=== PATIENT | female | born 1935 | race Hispanic/Latino ===

== ENCOUNTER 2016-11-14 10:03 | Emergency (ER) | payer MEDICARE, OTHER ==
[2016-11-14 11:23] LABS: Basophils % (Auto) 0.8 % (0.0-1.8); Eosinophils % (Auto) 0.6 % (0.0-4.3); Hematocrit 43.8 % (30.3-42.9); Hemoglobin 14.7 gm/dl (10.1-14.3); Mean Corpuscular HGB Conc 34 % (30-34); Mean Corpuscular Hemoglobin 34 pg (28-32); Mean Corpuscular Volume 101 fl (79-97); Platelet Count 257 K/mm3 (140-440); Red Blood Count 4.34 M/mm3 (3.65-5.03); Red Cell Distribution Width 14.1 % (13.2-15.2); White Blood Count 7.3 K/mm3 (4.5-11.0)
[2016-11-14] MEDS ORDERED: ATIVAN IV ONE ×2 (11:32→12:02)
[2016-11-14 11:36] LABS: Anion Gap 20 mmol/L; BUN/Creatinine Ratio 15.71; Blood Urea Nitrogen 11 mg/dL (7-17); Calcium 9.2 mg/dL (8.4-10.2); Carbon Dioxide 23 mmol/L (22-30); Chloride 93.1 mmol/L (98-107); Glucose 117 mg/dL (65-100); Sodium 132 mmol/L (137-145)
[2016-11-14] MEDS ORDERED: NACL 0.9% 1000 ML 1,000 ML IV ONE (12:02)
[2016-11-14 12:14] LABS: ISTAT Base Excess 0; ISTAT HCO3 21.2; ISTAT PCO2 21.4 (35-45); ISTAT PH 7.604 (7.35-7.45); ISTAT PO2 121 (80-105); ISTAT SO2 99; ISTAT TCO2 22
[2016-11-14 12:35] LABS: Creatine Kinase MB 1.9 ng/mL (0.0-4.0)
[2016-11-14 12:37] LABS: Alanine Aminotransferase 8 units/L (7-56); Albumin 3.8 g/dL (3.9-5); Albumin/Globulin Ratio 1.6 %; Alkaline Phosphatase 97 units/L (35-129); Bilirubin,Total 0.3 mg/dL (0.1-1.2); Creatine Kinase 17 units/L (30-135); Magnesium 1.7 mg/dL (1.7-2.3); Total Protein 6.2 g/dL (6.3-8.2)
[2016-11-14 12:39] LABS: Bilirubin,Direct < 0.2 mg/dL (0-0.2)
[2016-11-14 12:40] LABS: INR 0.98 (0.87-1.13); Partial Thromboplastin Time 27.5 Sec. (24.2-36.6)
--- NOTE | 2016-11-14 13:24 | Emergency Department Report ---
ED General Adult HPI - General Chief complaint: Dyspnea/Respdistress Stated complaint: PAINFUL AND BURNING HANDS AND FEET Time Seen by Provider: 11/14/16 11:06 Source: patient, family, EMS Mode of arrival: Stretcher Limitations: No Limitations - History of Present Illness Initial comments: Patient arrives in a state of high anxiety. The family states that she was just weaned off her gabapentin. She's been previously dependent on opiates and now on naltrexone. 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 She is on multiple psychiatric medications. She states her entire right side hurts, "but not my chest". She is hyperventilating. However she does not complain of shortness of breath. A blood gas was obtained which showed evidence of severe respiratory alkalosis. She was given Ativan. She began to improve. Family states that this right-sided body pain has been going on for 3 weeks since the discontinuance of gabapentin. She has not been coughing. She was also recently discontinued from Topamax and HCTZ was discontinued. According to the triage note, she was recently diagnosed with a bladder infection. - Related Data Home Medications Medication Instructions Recorded Confirmed Last Taken Acetaminophen [Tylenol] 1,000 mg PO Q8H PRN 10/14/15 11/14/16 Unknown Atenolol [Tenormin] 50 mg PO DAILY 10/14/15 11/14/16 11/13/16 Duloxetine HCl [Cymbalta] 60 mg PO DAILY 10/14/15 11/14/16 11/14/16 Losartan [Cozaar] 100 mg PO QDAY 10/14/15 11/14/16 11/14/16 Phenytoin [Dilantin] 100 mg PO Q8HR 10/14/15 11/14/16 11/14/16 Rosuvastatin (Nf) [Crestor] 5 mg PO QHS 10/14/15 11/14/16 11/13/16 risperiDONE [RisperDAL] 0.25 mg PO BID 10/14/15 11/14/16 11/14/16 Naltrexone (Nf) [Revia (Nf)] 3 mg PO DAILY 11/14/16 11/14/16 11/14/16 Quetiapine Fumarate [SEROquel] 50 mg PO BID 11/14/16 11/14/16 11/14/16 Triamter/Hctz 37.5-25 mg 1 tab PO QDAY 11/14/16 11/14/16 11/14/16 [Maxzide-25] busPIRone [Buspar] 10 mg PO BID 11/14/16 11/14/16 11/14/16 Previous Rx's Medication Instructions Recorded Last Taken Type LORazepam [Ativan] 0.5 mg PO Q12H PRN #7 tablet 11/14/16 Unknown Rx Allergies Allergy/AdvReac Type Severity Reaction Status Date / Time No Known Allergies Allergy Unverified 06/06/15 09:02 ED Review of Systems ROS: Stated complaint: PAINFUL AND BURNING HANDS AND FEET Other details as noted in HPI ED Past Medical Hx - Past Medical History Previous Medical History?: Yes Hx Hypertension: Yes Hx CVA: Yes Hx GERD: Yes Hx Liver Disease: No Hx Kidney Stones: Yes Hx Psychiatric Treatment: Yes (Major Depression) Additional medical history: Elevated Cholesterol, anxiety disorder, trigeminal neuralgia - Surgical History Past Surgical History?: Yes Hx Cholecystectomy: Yes Additional Surgical History: Hysterectomy - Social History Smoking Status: Never Smoker Substance Use Type: None - Medications Home Medications: Home Medications Medication Instructions Recorded Confirmed Last Taken Type Acetaminophen [Tylenol] 1,000 mg PO Q8H PRN 10/14/15 11/14/16 Unknown History Atenolol [Tenormin] 50 mg PO DAILY 10/14/15 11/14/16 11/13/16 History Duloxetine HCl [Cymbalta] 60 mg PO DAILY 10/14/15 11/14/16 11/14/16 History Losartan [Cozaar] 100 mg PO QDAY 10/14/15 11/14/16 11/14/16 History Phenytoin [Dilantin] 100 mg PO Q8HR 10/14/15 11/14/16 11/14/16 History Rosuvastatin (Nf) [Crestor] 5 mg PO QHS 10/14/15 11/14/16 11/13/16 History risperiDONE [RisperDAL] 0.25 mg PO BID 10/14/15 11/14/16 11/14/16 History LORazepam [Ativan] 0.5 mg PO Q12H PRN #7 tablet 11/14/16 Unknown Rx Naltrexone (Nf) [Revia (Nf)] 3 mg PO DAILY 11/14/16 11/14/1611/14/17 History Quetiapine Fumarate [SEROquel] 50 mg PO BID 11/14/16 11/14/16 11/14/16 History Triamter/Hctz 37.5-25 mg 1 tab PO QDAY 11/14/16 11/14/16 11/14/16 History [Maxzide-25] busPIRone [Buspar] 10 mg PO BID 11/14/16 11/14/16 11/14/16 History ED Physical Exam - General Limitations: No Limitations ED Course Vital Signs 11/14/16 11/14/16 10:30 10:36 Temperature 97.7 F Pulse Rate 62 Respiratory 26 H 22 Rate Blood Pressure 112/78 O2 Sat by Pulse 96 98 Oximetry - Reevaluation(s) Reevaluation #1: Patient states ready for discharge SAO2 96-97 off oxygen. Has oxygen for PRN use at home. 11/14/16 14:45 ED Medical Decision Making - Lab Data Result diagrams: 11/14/16 11:04 11/14/16 11:04 - EKG Data -: EKG Interpreted by Me EKG shows normal: sinus rhythm - EKG Data When compared to previous EKG there are: no significant change Interpretation: other (chronic inferolateral repolarization abnormality) - Radiology Data interpreted by me: Total hernia without change. No acute cardiopulmonary process. Critical care attestation.: If time is entered above; I have spent that time in minutes in the direct care of this critically ill patient, excluding procedure time. ED Disposition Clinical Impression: Acute anxiety, Hiatal hernia Disposition: DISCHARGED TO HOME OR SELFCARE Is pt being admited?: No Does the pt Need Aspirin: No Condition: Stable Instructions: Generalized Anxiety Disorder (ED), Anxiety (ED) Additional Instructions: Return any acute change or problem. I've written use some assistance for when necessary use only. Prescriptions: LORazepam [Ativan] 0.5 mg PO Q12H PRN #7 tablet PRN Reason: Anxiety Referrals: PRIMARY CARE, [Primary Care Provider] - 3-5 Days Time of Disposition: 14:57
[2016-11-14 18:55] VITALS: BP 100/41
--- NOTE | 2016-11-15 09:59 | XRay Report ---
Single view chest: Compared to 06/06/15. History: Hypertension. Findings: Cardiomegaly. Evidence of COPD with scarring in the left perihilar region. Elevated left diaphragm. Large hiatal hernia. No acute consolidation. Impression: Findings as detailed above. No acute consolidation.
== END 2016-11-14 16:30 | disposition home or self-care (01) ==
LOC: ED 10:03
DX: K44.9 Diaphragmatic hernia without obstruction or gangrene (principal); F41.9 Anxiety disorder, unspecified; I10 Essential (primary) hypertension; K21.9 Gastro-esophageal reflux disease without esophagitis; Z86.73 Personal history of transient ischemic attack (TIA), and cerebral infarction without residual deficits; Z90.710 Acquired absence of both cervix and uterus
CPT/HCPCS: 36415; 71010; 80048; 80074; 80185; 82550; 82553; 82803; 83735; 83880; 84484; 85025; 85379; 85610; 85730; 93005; 93010; 96361; 96374; 99284; J2060; J7030

== ENCOUNTER 2017-05-19 08:59 | Inpatient (IN) | payer MEDICARE, OTHER ==
[2017-05-19 09:55] LABS: Basophils % (Auto) 0.9 % (0.0-1.8); Eosinophils % (Auto) 3.1 % (0.0-4.3); Hemoglobin 12.8 gm/dl (10.1-14.3); Mean Corpuscular HGB Conc 34 % (30-34); Mean Corpuscular Hemoglobin 35 pg (28-32); Mean Corpuscular Volume 102 fl (79-97); Platelet Count 231 K/mm3 (140-440); Red Blood Count 3.72 M/mm3 (3.65-5.03); Red Cell Distribution Width 12.9 % (13.2-15.2); White Blood Count 5.5 K/mm3 (4.5-11.0)
[2017-05-19 10:06] LABS: Bacteria,Urine 1+ /HPF (Negative); Bilirubin,Urine NEG (Negative); Blood,Urine MOD (Negative); Ketones,Urine NEG (Negative); Leukocyte Esterase,Urine TR (Negative); Nitrite,Urine NEG (Negative); Protein,Urine <15 mg/dL mg/dL (Negative); Urobilinogen,Urine < 2.0 mg/dL (<2.0)
[2017-05-19 10:15] LABS: Alanine Aminotransferase 6 units/L (7-56); Albumin 3.2 g/dL (3.9-5); Albumin/Globulin Ratio 1.2 %; Alkaline Phosphatase 108 units/L (35-129); Anion Gap 20 mmol/L; Blood Urea Nitrogen 11 mg/dL (7-17); Calcium 8.4 mg/dL (8.4-10.2); Carbon Dioxide 21 mmol/L (22-30); Glucose 99 mg/dL (65-100); Lipase 14 units/L (13-60); Potassium 3.9 mmol/L (3.6-5.0); Sodium 130 mmol/L (137-145); Total Protein 5.8 g/dL (6.3-8.2)
[2017-05-19] MEDS ORDERED: MORPHINE IV ONE (10:43)
[2017-05-19] MEDS ORDERED: PEPCID IV ONE (10:44)
--- NOTE | 2017-05-19 10:58 | Emergency Department Report ---
HPI - General Chief Complaint: Abdominal Pain Time Seen by Provider: 05/19/17 10:21 - HPI HPI: 81-year-old female presents to the emergency department from home, with family at bedside, with complaint of abdominal pain that started about 6: 00 this morning. On top of that, the patient had a bowel movement last night as well as another this morning had bright red bloody stool. She is not on any blood thinners. She has a history of previous hiatal hernia that has now advanced to a diaphragmatic hernia. Primary care doctor is a Dr. Burgos and her bowling ball grader is a Dr. Shaw [facility]. She is allegedly being worked up to see if she can get surgery done to repair this diaphragmatic hernia. She did not take anything for her symptoms prior to presentation. No recent travel or sick contacts at home. She denies any fever, nausea, vomiting , dysuria, vaginal bleeding or discharge. ED Past Medical Hx - Past Medical History Hx Hypertension: Yes Hx CVA: Yes Hx GERD: Yes Hx Liver Disease: No Hx Kidney Stones: Yes Hx Psychiatric Treatment: Yes (Major Depression) Additional medical history: Elevated Cholesterol, anxiety disorder, trigeminal neuralgia - Surgical History Hx Cholecystectomy: Yes Additional Surgical History: Hysterectomy - Social History Smoking Status: Unknown if ever smoked - Medications Home Medications: Home Medications Medication Instructions Recorded Confirmed Last Taken Type Losartan [Cozaar] 100 mg PO QDAY 10/14/15 05/19/17 05/18/17 History Phenytoin [Dilantin] 100 mg PO Q8HR 10/14/15 05/19/17 05/18/17 History Rosuvastatin (Nf) [Crestor] 5 mg PO QHS 10/14/15 05/19/17 05/18/17 History Triamter/Hctz 37.5-25 mg 1 tab PO QDAY 11/14/16 05/19/17 05/18/17 History [Maxzide-25] Amitriptyline [Elavil] 100 mg PO HS 05/19/17 05/19/17 05/18/17 History Atenolol [Tenormin] 50 mg PO DAILY 05/19/17 05/19/17 05/18/17 History Dicyclomine [Bentyl] 20 mg PO QID PRN 05/19/17 05/19/17 05/18/17 History Donepezil [Aricept] 10 mg PO QDAY 05/19/17 05/19/17 05/18/17 History FLUoxetine HCL [PROzac] 40 mg PO QDAY 05/19/17 05/19/17 05/18/17 History HYDROcodone/APAP 7.5-325 [[place] 1 each PO Q8HR PRN 05/19/17 05/19/17 05/18/17 History 7.5/325] LORazepam [Ativan] 0.5 mg PO TID 05/19/17 05/19/17 05/18/17 History Latanoprost 0.005% [Xalatan 0.005%] 1 drop OU HS 05/19/17 05/19/17 05/18/17 History Quetiapine Fumarate [SEROquel XR] 200 mg PO QDAY 05/19/17 05/19/17 Unknown History Sucralfate [Carafate] 1 gm PO QID 05/19/17 05/19/17 05/18/17 History ED Review of Systems ROS: Stated complaint: ABD PAIN/BLOOD IN STOOL Other details as noted in HPI Comment: All other systems reviewed and negative Constitutional: denies: chills, fever Eyes: denies: eye pain, eye discharge, vision change ENT: denies: ear pain, throat pain Respiratory: denies: cough, shortness of breath, wheezing Cardiovascular: denies: chest pain, palpitations Gastrointestinal: abdominal pain, other (rectal bleeding). denies: nausea, vomiting Genitourinary: denies: urgency, dysuria, discharge Musculoskeletal: denies: back pain, joint swelling, arthralgia Skin: denies: rash, lesions Neurological: denies: headache, weakness, paresthesias Physical Exam - Physical Exam Vital Signs: Vital Signs 05/19/17 05/19/17 05/19/17 09:06 09:22 09:23 Temperature 97.8 F Pulse Rate 66 Respiratory 14 16 16 Rate Blood Pressure 140/78 Blood Pressure 153/71 [Left] O2 Sat by Pulse 93 97 97 Oximetry ED Course Vital Signs 05/19/17 05/19/17 05/19/17 09:06 09:22 09:23 Temperature 97.8 F Pulse Rate 66 Respiratory 14 16 16 Rate Blood Pressure 140/78 Blood Pressure 153/71 [Left] O2 Sat by Pulse 93 97 97 Oximetry ED Medical Decision Making - Lab Data Result diagrams: 05/19/17 09:44 05/19/17 09:44 - Radiology Data Radiology results: report reviewed, image reviewed interpreted by me: Abdominal x-ray shows some nonspecific nonobstructive bowel gas. Chest x-ray shows some pulmonary vascular congestion with bilateral basilar pleural effusions. No obvious pneumonia. CT ABDOMEN AND PELVIS WITH CONTRAST INDICATION: Abdominal pain. COMPARISON: 10/04/2015. FINDINGS: Abdomen and pelvis CT performed following intravenous administration of 100 cc of Omnipaque 300. LUNG BASES: New bilateral pleural effusions with AP thickness of approximately 5.3 cm on the right and 2 cm on the left, axial image 2, series 22. Mild underlying atelectasis/consolidation as well, left more than right. Mild atherosclerotic calcifications. Mild cardiomegaly. Hiatal hernia with part intrathoracic stomach again noted with some surrounding herniated fat, overall estimated at 16.5 cm transverse and 3 cm AP, axial image 9, series 2. ABDOMEN: Stable cholecystectomy clips with expected slight intrahepatic/central biliary prominence. CBD caliber at the andrew hepatis approximately 1 cm, extending upto the ampulla. Otherwise unremarkable liver, spleen, adrenals, nonaneurysmal abdominal aorta with few atherosclerotic calcifications, IVC and nonhydronephrotic kidneys. Stable 8 mm right interpolar cortical hypoechoic probable cyst. Stable somewhat small/atrophic pancreas with approximately 3 mm pancreatic duct caliber in the neck/proximal body. Nonopacified GI tract evaluation limited, though grossly nonobstructive. Numerous descending colon diverticuli. PELVIS: Sigmoid diverticulosis without acute complication. Grossly unremarkable rectum and the urinary bladder. Uterus again surgically absent. Few small pelvic phleboliths. No free fluid or significant adenopathy. Bilateral inguinal canal region fatty prominence, right more than left, axial image 351. Demineralized bones with mild dextroscoliosis apex about L1. Lower lumbar facet arthropathy. Mild multilevel spinal degenerative spurring as well. CONCLUSION: 1. New bilateral pleural effusions and underlying atelectasis, as described. 2. No acute CT abnormality in the abdomen or pelvis with various other findings, including large hiatal hernia/herniated partly intrathoracic stomach, cholecystectomy, diverticulosis and hysterectomy, amongst others, as detailed above. - Medical Decision Making 81-year-old female presents to the emergency department with a complaint of abdominal pain that sometimes feels like it goes up into her chest with a history of hiatal hernia and/or diaphragmatic hernia. Labs are mostly unremarkable other than some hyponatremia. Eventually a BNP was done when the patient admitted to shortness of breath and chest x-ray appeared consistent with some pleural effusions and the BNP came back at greater than 2500. CT of the abdomen and pelvis does show a hiatal hernia but otherwise does not show any acute process that might be the the source of her discomfort. She also complained of some rectal bleeding but has a stable hemoglobin level. She was given Pepcid for the GI bleed, she was given Lasix for a CHF. She will be admitted to the hospital for further evaluation and treatment and has been accepted for admission by the hospitalist, Dr. Hammer. - Differential Diagnosis CHF, diverticulosis, hiatal hernia, malignancy Critical Care Time: No Critical care attestation.: If time is entered above; I have spent that time in minutes in the direct care of this critically ill patient, excluding procedure time. ED Disposition Clinical Impression: Shortness of breath, Rectal bleeding, Hyponatremia Hypertension Qualifiers: Hypertension type: essential hypertension Qualified Code(s): I10 - Essential ( primary) hypertension Abdominal pain Qualifiers: Abdominal location: generalized Qualified Code(s): R10.84 - Generalized abdominal pain CHF (congestive heart failure) Qualifiers: Congestive heart failure type: unspecified congestive heart failure type Congestive heart failure chronicity: acute Qualified Code(s): I50.9 - Heart failure, unspecified Disposition: 09 OP ADMIT IP TO THIS HOSP Is pt being admited?: Yes Condition: Fair Time of Disposition: 18:39
[2017-05-19] MEDS: NACL 0.9% 500 ML 500 ML IV SCH ×2 (10:59→20:17)
[2017-05-19] MEDS ORDERED: NACL ONE ×2 (11:13→11:36)
--- NOTE | 2017-05-19 11:52 | XRay Report ---
ABDOMINAL SERIES: History: Abdominal pain. Erect chest film demonstrates mild cardiomegaly and small to medium left pleural effusion. There is no evidence of free air beneath the diaphragms. The gas pattern within the abdomen is unremarkable. There is no evidence of bowel dilatation, significant air-fluid levels, or masses. Organ shadows are unremarkable. Cholecystectomy changes are noted. IMPRESSION: Unremarkable abdomen. Mild CHF.
--- NOTE | 2017-05-19 13:11 | Cat Scan Report ---
CT ABDOMEN AND PELVIS WITH CONTRAST INDICATION: Abdominal pain. COMPARISON: 10/04/2015. FINDINGS: Abdomen and pelvis CT performed following intravenous administration of 100 cc of Omnipaque 300. LUNG BASES: New bilateral pleural effusions with AP thickness of approximately 5.3 cm on the right and 2 cm on the left, axial image 2, series 22. Mild underlying atelectasis/consolidation as well, left more than right. Mild atherosclerotic calcifications. Mild cardiomegaly. Hiatal hernia with part intrathoracic stomach again noted with some surrounding herniated fat, overall estimated at 16.5 cm transverse and 3 cm AP, axial image 9, series 2. ABDOMEN: Stable cholecystectomy clips with expected slight intrahepatic/central biliary prominence. CBD caliber at the andrew hepatis approximately 1 cm, extending upto the ampulla. Otherwise unremarkable liver, spleen, adrenals, nonaneurysmal abdominal aorta with few atherosclerotic calcifications, IVC and nonhydronephrotic kidneys. Stable 8 mm right interpolar cortical hypoechoic probable cyst. Stable somewhat small/atrophic pancreas with approximately 3 mm pancreatic duct caliber in the neck/proximal body. Nonopacified GI tract evaluation limited, though grossly nonobstructive. Numerous descending colon diverticuli. PELVIS: Sigmoid diverticulosis without acute complication. Grossly unremarkable rectum and the urinary bladder. Uterus again surgically absent. Few small pelvic phleboliths. No free fluid or significant adenopathy. Bilateral inguinal canal region fatty prominence, right more than left, axial image 351. Demineralized bones with mild dextroscoliosis apex about L1. Lower lumbar facet arthropathy. Mild multilevel spinal degenerative spurring as well. CONCLUSION: 1. New bilateral pleural effusions and underlying atelectasis, as described. 2. No acute CT abnormality in the abdomen or pelvis with various other findings, including large hiatal hernia/herniated partly intrathoracic stomach, cholecystectomy, diverticulosis and hysterectomy, amongst others, as detailed above. Thank you for the opportunity to participate in this patient's care.
[2017-05-19] MEDS ORDERED: LASIX IV ONE (13:57)
[2017-05-19] MEDS ORDERED: DILAUDID IV PRN (18:18)
[2017-05-19] MEDS ORDERED: DILAUDID ONE (18:22)
[2017-05-19] MEDS ORDERED: ZOFRAN IV PRN ×2 (19:58→20:04)
--- NOTE | 2017-05-19 20:02 | History and Physical Report ---
History of Present Illness Date of examination: 05/19/17 Date of admission: 05/19/17 17:40 Chief complaint: BRBPR since last night -2 episodes History of present illness: HPI 81-year-old female presents to the emergency department from home, with family at bedside, with complaint of abdominal pain that started about 6: 00 this morning. On top of that, the patient had a bowel movement last night as well as another this morning had bright red bloody stool. She is not on any blood thinners. She has a history of previous hiatal hernia that has now advanced to a diaphragmatic hernia. Primary care doctor is a Dr. Burgos and her copy operator is a Dr. Shaw [facility]. She is allegedly being worked up to see if she can get surgery done to repair this diaphragmatic hernia. She did not take anything for her symptoms prior to presentation. No recent travel or sick contacts at home. She denies any fever, nausea, vomiting , dysuria, vaginal bleeding or discharge. Past Medical History Hx Hypertension: Yes Hx CVA: Yes Hx GERD: Yes Hx Kidney Stones: Yes Hx Psychiatric Treatment: Yes (Major Depression) Additional medical history: Elevated Cholesterol, anxiety disorder, trigeminal neuralgia - Surgical History Hx Cholecystectomy: Yes Additional Surgical History: Hysterectomy - Social History Smoking Status: Doesn't smoke Fam Hx Htn - Medications Home Medications: Home Medications Medication Instructions Recorded Confirmed Last Taken Type Losartan [Cozaar] 100 mg PO QDAY 10/14/15 05/19/17 05/18/17 History Phenytoin [Dilantin] 100 mg PO Q8HR 10/14/15 05/19/17 05/18/17 History Rosuvastatin (Nf) [Crestor] 5 mg PO QHS 10/14/15 05/19/17 05/18/17 History Triamter/Hctz 37.5-25 mg 1 tab PO QDAY 11/14/16 05/19/17 05/18/17 History [Maxzide-25] Amitriptyline [Elavil] 100 mg PO HS 05/19/17 05/19/17 05/18/17 History Atenolol [Tenormin] 50 mg PO DAILY 05/19/17 05/19/17 05/18/17 History Dicyclomine [Bentyl] 20 mg PO QID PRN 05/19/17 05/19/1705/18/17 History Donepezil [Aricept] 10 mg PO QDAY 05/19/17 05/19/17 05/18/17 History FLUoxetine HCL [PROzac] 40 mg PO QDAY 05/19/17 05/19/17 05/18/17 History HYDROcodone/APAP 7.5-325 [[place] 1 each PO Q8HR PRN 05/19/17 05/19/17 05/18/17 History 7.5/325] LORazepam [Ativan] 0.5 mg PO TID 05/19/17 05/19/17 05/18/17 History Latanoprost 0.005% [Xalatan 0.005%] 1 drop OU HS 05/19/17 05/19/17 05/18/17 History Quetiapine Fumarate [SEROquel XR] 200 mg PO QDAY 05/19/17 05/19/17 Unknown History Sucralfate [Carafate] 1 gm PO QID 05/19/17 05/19/17 05/18/17 History Review of Systems: Stated complaint: ABD PAIN/BLOOD IN STOOL Other details as noted in HPI Comment: All other systems reviewed and negative Constitutional: denies: chills, fever Eyes: denies: eye pain, eye discharge, vision change ENT: denies: ear pain, throat pain Respiratory: denies: cough, shortness of breath, wheezing Cardiovascular: denies: chest pain, palpitations Gastrointestinal: abdominal pain, other (rectal bleeding). denies: nausea, vomiting Genitourinary: denies: urgency, dysuria, discharge Musculoskeletal: denies: back pain, joint swelling, arthralgia Skin: denies: rash, lesions Neurological: denies: headache, weakness, paresthesias Medications and Allergies Allergies Allergy/AdvReac Type Severity Reaction Status Date / Time No Known Allergies Allergy Unverified 06/06/15 09:02 Home Medications Medication Instructions Recorded Confirmed Last Taken Type Losartan [Cozaar] 100 mg PO QDAY 10/14/15 05/19/17 05/18/17 History Phenytoin [Dilantin] 100 mg PO Q8HR 10/14/15 05/19/17 05/18/17 History Rosuvastatin (Nf) [Crestor] 5 mg PO QHS 10/14/15 05/19/1717 History Triamter/Hctz 37.5-25 mg 1 tab PO QDAY 11/14/16 05/19/17 05/18/17 History [Maxzide-25] Amitriptyline [Elavil] 100 mg PO HS 05/19/17 05/19/17 05/18/17 History Atenolol [Tenormin] 50 mg PO DAILY 05/19/17 05/19/17 05/18/17 History Dicyclomine [Bentyl] 20 mg PO QID PRN 05/19/17 05/19/17 05/18/17 History Donepezil [Aricept] 10 mg PO QDAY 05/19/17 05/19/17 05/18/17 History FLUoxetine HCL [PROzac] 40 mg PO QDAY 05/19/17 05/19/17 05/18/17 History HYDROcodone/APAP 7.5-325 [[place] 1 each PO Q8HR PRN 05/19/17 05/19/17 05/18/17 History 7.5/325] LORazepam [Ativan] 0.5 mg PO TID 05/19/17 05/19/17 05/18/17 History Latanoprost 0.005% [Xalatan 0.005%] 1 drop OU 05/19/17 05/19/17 05/18/17 History Quetiapine Fumarate [SEROquel XR] 200 mg PO QDAY 05/19/17 05/19/17 Unknown History Sucralfate [Carafate] 1 gm PO QID 05/19/17 05/19/17 05/18/17 History Active Meds: Active Medications Hydromorphone HCl (Dilaudid) 2 mg IV Q3H PRN PRN Reason: Pain , Severe (7-10) Last Admin: 05/19/17 18:15 Dose: 2 mg Sodium Chloride (Nacl 0.9% 500 Ml) 500 mls @ 150 mls/hr IV DIRECT ALICIA Last Admin: 05/19/17 10:59 Dose: 150 mls/hr Ondansetron HCl (Zofran) 4 mg IV Q4H PRN PRN Reason: Nausea And Vomiting Exam - Constitutional Vitals: Temp Pulse Resp BP Pulse Ox 97.8 F 76 16 122/62 93 05/19/17 09:22 05/19/17 17:10 05/19/17 17:10 05/19/17 17:10 05/19/17 17:10 Results - Labs CBC & Chem 7: 05/20/17 03:40 05/20/17 03:40 Labs: Laboratory Last Values WBC 5.5 K/mm3 (4.5-11.0) 05/19/17 09:44 RBC 3.72 M/mm3 (3.65-5.03) 05/19/17 09:44 Hgb 12.8 gm/dl (10.1-14.3) 05/19/17 09:44 Hct 38.0 % (30.3-42.9) 05/19/17 09:44 MCV 102 fl (79-97) H 05/19/17 09:44 MCH 35 pg (28-32) H 05/19/17 09:44 MCHC 34 % (30-34) 05/19/17 09:44 RDW 12.9 % (13.2-15.2) L 05/19/17 09:44 Plt Count 231 K/mm3 (140-440) 05/19/17 09:44 Lymph % (Auto) 15.7 % (13.4-35.0) 05/19/17 09:44 [place] % (Auto) 15.1 % (0.0-7.3) H 05/19/17 09:44 Eos % (Auto) 3.1 % (0.0-4.3) 05/19/17 09:44 Baso % (Auto) 0.9 % (0.0-1.8) 05/19/17 09:44 Lymph # 0.9 K/mm3 (1.2-5.4) L 05/19/17 09:44 [place] # 0.8 K/mm3 (0.0-0.8) 05/19/17 09:44 Eos # 0.2 K/mm3 (0.0-0.4) 05/19/17 09:44 Baso # 0.0 K/mm3 (0.0-0.1) 05/19/17 09:44 Seg Neutrophils % 65.2 % (40.0-70.0) 05/19/17 09:44 Seg Neutrophils # 3.6 K/mm3 (1.8-7.7) 05/19/17 09:44 Sodium 130 mmol/L (137-145) L 05/19/17 09:44 Potassium 3.9 mmol/L (3.6-5.0) 05/19/17 09:44 Chloride 93.0 mmol/L (98-107) L 05/19/17 09:44 Carbon Dioxide 21 mmol/L (22-30) L 05/19/17 09:44 Anion Gap 20 mmol/L 05/19/17 09:44 BUN 11 mg/dL (7-17) 05/19/17 09:44 Creatinine 0.5 mg/dL (0.7-1.2) L 05/19/17 09:44 Estimated GFR > 60 ml/min 05/19/17 09:44 BUN/Creatinine Ratio 22.00 % 05/19/17 09:44 Glucose 99 mg/dL (65-100) 05/19/17 09:44 Calcium 8.4 mg/dL (8.4-10.2) 05/19/17 09:44 Total Bilirubin 0.30 mg/dL (0.1-1.2) 05/19/17 09:44 AST 9 units/L (5-40) 05/19/17 09:44 ALT 6 units/L (7-56) L 05/19/17 09:44 Alkaline Phosphatase 108 units/L (35-129) 05/19/17 09:44 Troponin T < 0.010 ng/mL (0.00-0.029) 05/19/17 13:20 NT-Pro-B Natriuret Pep 2937 pg/mL (0-900) H 05/19/17 13:20 Total Protein 5.8 g/dL (6.3-8.2) L 05/19/17 09:44 Albumin 3.2 g/dL (3.9-5) L 05/19/17 09:44 Albumin/Globulin Ratio 1.2 % 05/19/17 09:44 Lipase 14 units/L (13-60) 05/19/17 09:44 Urine Color Yellow (Yellow) 05/19/17 09:50 Urine Turbidity Clear (Clear) 05/19/17 09:50 Urine pH 6.0 (5.0-7.0) 05/19/17 09:50 Ur Specific [place] 1.010 (1.003-1.030) 05/19/17 09:50 Urine Protein <15 mg/dl mg/dL (Negative) 05/19/17 09:50 Urine Glucose (UA) Neg mg/dL (Negative) 05/19/17 09:50 Urine Ketones Neg mg/dL (Negative) 05/19/17 09:50 Urine Blood Mod (Negative) 05/19/17 09:50 Urine Nitrite Neg (Negative) 05/19/17 09:50 Urine Bilirubin Neg (Negative) 05/19/17 09:50 Urine Urobilinogen < 2.0 mg/dL (<2.0) 05/19/17 09:50 Ur Leukocyte Esterase Tr (Negative) 05/19/17 09:50 Urine WBC (Auto) 4.0 /HPF (0.0-6.0) 05/19/17 09:50 Urine RBC (Auto) 4.0 /HPF (0.0-6.0) 05/19/17 09:50 U Epithel Cells (Auto) < 1.0 /HPF (0-13.0) 05/19/17 09:50 Urine Bacteria (Auto) 1+ /HPF (Negative) 05/19/17 09:50 Short CBC 05/19/17 05/19/17 05/20/17 Range/Units 09:44 21:07 03:40 WBC 5.5 6.2 (4.5-11.0) K/mm3 Hgb 12.8 12.5 11.9 (10.1-14.3) gm/dl Hct 38.0 36.4 34.5 (30.3-42.9) % Plt Count 231 252 (140-440) K/mm3 BMP 05/19/17 05/20/17 09:44 03:40 Sodium 130 L 136 L Potassium 3.9 3.8 Chloride 93.0 L 97.5 L Carbon Dioxide 21 L 23 BUN 11 10 Creatinine 0.5 L 0.5 L Glucose 99 120 H Calcium 8.4 8.5 Cardiac Enzymes 05/19/17 Range/Units 13:20 Troponin T < 0.010 (0.00-0.029) ng/mL Liver Function 05/19/17 05/20/17 Range/Units 09:44 03:40 Total Bilirubin 0.30 0.20 (0.1-1.2) mg/dL AST 9 10 (5-40) units/L ALT 6 L 7 (7-56) units/L Alkaline Phosphatase 108 109 (35-129) units/L Albumin 3.2 L 3.2 L (3.9-5) g/dL Urine 05/19/ Range/Units 09:50 Urine Color Yellow (Yellow) Urine pH 6.0 (5.0-7.0) Ur Specific [place] 1.010 (1.003-1.030) Urine Protein <15 mg/dl (Negative) mg/dL Urine Glucose (UA) Neg (Negative) mg/dL - Imaging and Cardiology EKG: report reviewed US - abdomen: report reviewed (Sigmoid Diverticulosis Bilateral pleural effusions) Assessment and Plan Advance Directives: Yes (FC) VTE prophylaxis?: Mechanical Plan of care discussed with patient/family: Yes - Patient Problems (1) Lower GI hemorrhage Current Visit: Yes Status: Acute Plan to address problem: Possible Diverticular bleed. Sigmoid diverticulosis on CT Abdomen /Pelvis Transfuse if necessary GI consult requested IV Protonix/Famotidine ordered. (2) Hypertension Current Visit: Yes Status: Chronic Qualifiers: Hypertension type: essential hypertension Qualified Code(s): I10 - Essential (primary) hypertension Plan to address problem: Catapress patch.Patient is NPO (3) HLD (hyperlipidemia) Current Visit: Yes Status: Chronic Qualifiers: Hyperlipidemia type: mixed hyperlipidemia Qualified Code(s): E78.2 - Mixed hyperlipidemia Plan to address problem: Hold Statins for now (4) Depression Current Visit: Yes Status: Chronic Qualifiers: Depression Type: D Major depression recurrence: M Active/Remission status : A Major depression episode severity: M Psychotic features: P Trimester: T Plan to address problem: Cont Amitryptiline (5) Seizure disorder Current Visit: Yes Status: Chronic Plan to address problem: Cont Dilantin Check Dilantin level (6) DVT prophylaxis Current Visit: Yes Status: Acute Plan to address problem: Scd's
[2017-05-19] MEDS ORDERED: MILK OF MAGNESIA PO PRN (20:04)
[2017-05-19] MEDS ORDERED: TYLENOL PO PRN (20:04)
[2017-05-19] MEDS ORDERED: DULCOLAX PR PRN (20:04)
[2017-05-19 21:21] LABS: Hematocrit 36.4 % (30.3-42.9); Hemoglobin 12.5 gm/dl (10.1-14.3)
[2017-05-19] MEDS: PROTONIX IV SCH (23:04)
[2017-05-19] MEDS: PEPCID IV SCH (23:05)
[2017-05-19] MEDS: D5NS 1,000 ML IV SCH (23:06)
[2017-05-19] MEDS: REGLAN IV PRN (23:41)
[2017-05-19] MEDS: DILAUDID IV PRN (23:42)
[2017-05-20 04:17] LABS: Basophils % (Auto) 0.5 % (0.0-1.8); Eosinophils % (Auto) 0.9 % (0.0-4.3); Hematocrit 34.5 % (30.3-42.9); Hemoglobin 11.9 gm/dl (10.1-14.3); Mean Corpuscular HGB Conc 35 % (30-34); Mean Corpuscular Hemoglobin 36 pg (28-32); Mean Corpuscular Volume 103 fl (79-97); Platelet Count 252 K/mm3 (140-440); Red Blood Count 3.36 M/mm3 (3.65-5.03); White Blood Count 6.2 K/mm3 (4.5-11.0)
[2017-05-20 04:38] LABS: Alanine Aminotransferase 7 units/L (7-56); Albumin 3.2 g/dL (3.9-5); Albumin/Globulin Ratio 1.3 %; Alkaline Phosphatase 109 units/L (35-129); Anion Gap 19 mmol/L; Blood Urea Nitrogen 10 mg/dL (7-17); Calcium 8.5 mg/dL (8.4-10.2); Carbon Dioxide 23 mmol/L (22-30); Chloride 97.5 mmol/L (98-107); Glucose 120 mg/dL (65-100); Potassium 3.8 mmol/L (3.6-5.0); Sodium 136 mmol/L (137-145); Total Protein 5.6 g/dL (6.3-8.2)
[2017-05-20] MEDS: REGLAN IV PRN (06:18)
[2017-05-20] MEDS: DILAUDID IV PRN (06:19)
[2017-05-20] MEDS ORDERED: ATIVAN IV PRN (10:00)
[2017-05-20] MEDS ORDERED: CATAPRES-TTS PATCH TD SCH (10:00)
[2017-05-20] MEDS: PEPCID IV SCH (10:01)
[2017-05-20] MEDS: PROTONIX IV SCH ×2 (10:02→22:09)
--- NOTE | 2017-05-20 10:02 | Gastroenterology Consultation ---
<ROSALBA BRAND - Last Filed: 05/20/17 10:04> History of Present Illness - Reason for Consult Consult date: 05/20/17 GI bleed Requesting physician: MATA MCCALL - History of Present Illness Patient is a 81 y/o female who presented to the ER yesterday with c/o abd pain and BMs x [address] with bright red blood. CT scan revealed diverticulosis. This morning pt resting in bed, no acute distress but seems very anxious. No family at bedside. States she is having some SOB and nausea but no vomiting. Denies any signs of bleeding today. Reports last BM with bright red blood was last night. Denies fever, wt loss, CP, dizziness, vomiting, hematemesis, melena, diarrhea, or constipation. No NSAID or blood thinners. Last colonoscopy approximately 2 years ago by a provider at [facility], results unknown. PMH significant for HTN, CVA, kidney stones, depression, anxiety, hyperlipidemia, GERD, and diaphragmatic hernia. Past History Past Medical History: hypertension, hyperlipidemia, stroke, other (kidney stones , depression, anxiety, trigeminal neuralgia, diaphragmatic hernia) Past Surgical History: cholecystectomy, hysterectomy Social history: denies: smoking, alcohol abuse Family history: hypertension Medications and Allergies Allergies Allergy/AdvReac Type Severity Reaction Status Date / Time No Known Allergies Allergy Unverified 06/06/15 09:02 Home Medications Medication Instructions Recorded Confirmed Last Taken Type Losartan [Cozaar] 100 mg PO QDAY 10/14/15 05/19/17 05/18/17 History Phenytoin [Dilantin] 100 mg PO Q8HR 10/14/15 05/19/17 05/18/17 History Rosuvastatin (Nf) [Crestor] 5 mg PO QHS 10/14/15 05/19/17 05/18/17 History Triamter/Hctz 37.5-25 mg 1 tab PO QDAY 11/14/16 05/19/17 05/18/17 History [Maxzide-25] Amitriptyline [Elavil] 100 mg PO HS 05/19/17 05/19/17 05/18/17 History Atenolol [Tenormin] 50 mg PO DAILY 05/19/17 05/19/17 05/18/17 History Dicyclomine [Bentyl] 20 mg PO QID PRN 05/19/17 05/19/17 05/18/17 History Donepezil [Aricept] 10 mg PO QDAY 05/19/17 05/19/17 05/18/17 History FLUoxetine HCL [PROzac] 40 mg PO QDAY 05/19/17 05/19/17 05/18/17 History HYDROcodone/APAP 7.5-325 [[place] 1 each PO Q8HR PRN 05/19/17 05/19/17 05/18/17 History 7.5/325] LORazepam [Ativan] 0.5 mg PO TID 05/19/17 05/19/17 05/18/17 History Latanoprost 0.005% [Xalatan 0.005%] 1 drop OU HS 05/19/17 05/19/17 05/18/17 History Quetiapine Fumarate [SEROquel XR] 200 mg PO QDAY 05/19/17 05/19/17 Unknown History Sucralfate [Carafate] 1 gm PO QID 05/19/17 05/19/17 05/18/17 History Active Meds: Active Medications Acetaminophen (Tylenol) 650 mg PO Q4H PRN PRN Reason: Pain MILD(1-3)/Fever >100.5/MATA Bisacodyl (Dulcolax) 10 mg HI QDAY PRN PRN Reason: Constipation unrelieved by MOM Clonidine HCl (Catapres-Tts Patch) 0.1 mg TD Fr ALICIA Famotidine (Pepcid) 20 mg IV BID ALICIA Last Admin: 05/19/17 23:05 Dose: 20 mg Hydromorphone HCl (Dilaudid) 2 mg IV Q3H PRN PRN Reason: Pain , Severe (7-10) Last Admin: 05/19/17 18:15 Dose: 2 mg Hydromorphone HCl (Dilaudid) 0.5 mg IV Q3H PRN PRN Reason: Pain , Severe (7-10) Last Admin: 05/20/17 06:19 Dose: 0.5 mg Sodium Chloride (Nacl 0.9% 500 Ml) 500 mls @ 150 mls/hr IV DIRECT ALICIA Last Admin: 05/19/17 20:17 Dose: 150 mls/hr Dextrose/Sodium Chloride (D5ns) 1,000 mls @ 42 mls/hr IV DIRECT ALICIA Last Admin: 05/19/17 23:06 Dose: 42 mls/hr Latanoprost (Xalatan 0.005%) 1 drops OU HS ALICIA Lorazepam (Ativan) 0.5 mg IV Q8H PRN PRN Reason: Anxiety Magnesium Hydroxide (Milk Of Magnesia) 30 ml PO Q4H PRN PRN Reason: Constipation Metoclopramide HCl (Reglan) 10 mg IV Q6H PRN PRN Reason: Nausea And Vomiting Last Admin: 05/20/17 06:18 Dose: 10 mg Ondansetron HCl (Zofran) 4 mg IV Q4H PRN PRN Reason: Nausea And Vomiting Last Admin: 05/19/17 20:18 Dose: 4 mg Ondansetron HCl (Zofran) 4 mg IV Q8H PRN PRN Reason: N/V unrelieved by Reglan Last Admin: 05/20/17 08:04 Dose: 4 mg Pantoprazole Sodium (Protonix) 40 mg IV BID [facility] Last Admin: 05/19/17 23:04 Dose: 40 mg Review of Systems - Review of Systems All systems: negative Respiratory: shortness of breath Gastrointestinal: nausea, hematochezia Psychiatric: anxiety Exam - Constitutional Vital Signs: Temp Pulse Resp BP Pulse Ox 98.0 F 96 H 20 165/74 95 05/20/17 07:00 05/20/17 07:00 05/20/17 07:00 05/20/17 07:00 05/20/17 07:00 General appearance: no acute distress, well-nourished - EENT Eyes: PERRL, EOM intact ENT: hearing intact - Neck Neck: supple, normal ROM - Respiratory Respiratory: bilateral: CTA (anterior) - Cardiovascular Rhythm: regular Heart Sounds: Present: S1 & S2 Extremities: No edema - Gastrointestinal General gastrointestinal: Present: soft, tender (RLQ), non-distended, normal bowel sounds - Integumentary Integumentary: Present: warm, dry - Neurologic Neurological: alert and oriented x3 - Psychiatric Psychiatric: other (anxious) - Labs CBC & Chem 7: 05/20/17 03:40 05/20/17 03:40 Lab Results: Laboratory Results - last 24 hr 05/19/17 05/20/17 05/20/17 21:07 03:40 03:40 WBC 6.2 RBC 3.36 L Hgb 12.5 11.9 Hct 36.4 34.5 MCV 103 H MCH 36 H MCHC 35 H RDW 13.0 L Plt Count 252 Lymph % (Auto) 11.0 L [place] % (Auto) 12.9 H Eos % (Auto) 0.9 Baso % (Auto) 0.5 Lymph # 0.7 L [place] # 0.8 Eos # 0.1 Baso # 0.0 Seg Neutrophils % 74.7 H Seg Neutrophils # 4.6 Sodium 136 L Potassium 3.8 Chloride 97.5 L Carbon Dioxide 23 Anion Gap 19 BUN 10 Creatinine 0.5 L Estimated GFR > 60 BUN/Creatinine Ratio 20.00 Glucose 120 H Calcium 8.5 Total Bilirubin 0.20 AST 10 ALT 7 Alkaline Phosphatase 109 Total Protein 5.6 L Albumin 3.2 L Albumin/Globulin Ratio 1.3 Phenytoin 05/20/17 05:10 WBC RBC Hgb Hct MCV MCH MCHC RDW Plt Count Lymph % (Auto) [place] % (Auto) Eos % (Auto) Baso % (Auto) Lymph # [place] # Eos # Baso # Seg Neutrophils % Seg Neutrophils # Sodium Potassium Chloride Carbon Dioxide Anion Gap BUN Creatinine Estimated GFR BUN/Creatinine Ratio Glucose Calcium Total Bilirubin AST ALT Alkaline Phosphatase Total Protein Albumin Albumin/Globulin Ratio Phenytoin 16.1 Assessment and Plan 1.GI bleed 2.hematochezia -HGB 11.9-trending down -continue to monitor H&H and transfuse as needed -etiology most likely due to a diverticular bleed -no active signs of bleeding today -pt is currently hemodynamically stable -hold blood thinning medications -continue supportive care -clear liquid diet today, then NPO after MN -PT/INR in am -will schedule for colonoscopy in am -will follow <LONNIE MORALES R - Last Filed: 05/20/17 14:13> Medications and Allergies Active Meds: Active Medications Acetaminophen (Tylenol) 650 mg PO Q4H PRN PRN Reason: Pain MILD(1-3)/Fever >100.5/MATA Acetaminophen/Hydrocodone Bitart ([place] 7.5/325) 1 each PO Q8HR PRN PRN Reason: Pain Amitriptyline HCl (Elavil) 100 mg PO HS ALICIA Atenolol (Tenormin) 50 mg PO DAILY ALICIA Atorvastatin Calcium (Lipitor) 10 mg PO QHS ALICIA Bisacodyl (Dulcolax) 10 mg HI QDAY PRN PRN Reason: Constipation unrelieved by MOM Clonidine HCl (Catapres-Tts Patch) 0.1 mg TD Fr [facility] Last Admin: 05/20/17 10:05 Dose: 0.1 mg Donepezil HCl (Aricept) 10 mg PO QDAY ALICIA Fluoxetine HCl (Prozac) 40 mg PO QDAY ALICIA Furosemide (Lasix) 40 mg IV QDAY [facility] Last Admin: 05/20/17 13:47 Dose: 40 mg Gabapentin (Neurontin) 100 mg PO Q8HR [facility] Last Admin: 05/20/17 13:47 Dose: 100 mg Haloperidol Lactate (Haldol) 5 mg IM Q6H PRN PRN Reason: Agitation Sodium Chloride (Nacl 0.9% 500 Ml) 500 mls @ 150 mls/hr IV DIRECT ALICIA Last Admin: 05/19/17 20:17 Dose: 150 mls/hr Dextrose/Sodium Chloride (D5ns) 1,000 mls @ 42 mls/hr IV DIRECT [facility] Last Admin: 05/19/17 23:06 Dose: 42 mls/hr Latanoprost (Xalatan 0.005%) 1 drops OU HS ALICIA Lorazepam (Ativan) 0.5 mg PO TID [facility] Last Admin: 05/20/17 13:48 Dose: 0.5 mg Losartan Potassium (Cozaar) 100 mg PO QDAY ALICIA Magnesium Hydroxide (Milk Of Magnesia) 30 ml PO Q4H PRN PRN Reason: Constipation Metoclopramide HCl (Reglan) 10 mg IV Q6H PRN PRN Reason: Nausea And Vomiting Last Admin: 05/20/17 06:18 Dose: 10 mg Ondansetron HCl (Zofran) 4 mg IV Q8H PRN PRN Reason: N/V unrelieved by Reglan Last Admin: 05/20/17 08:04 Dose: 4 mg Pantoprazole Sodium (Protonix) 40 mg IV BID [facility] Last Admin: 05/20/17 10:02 Dose: 40 mg Phenytoin (Dilantin) 100 mg PO Q8HR [facility] Last Admin: 05/20/17 13:47 Dose: 100 mg Polyethylene Glycol/Electrolytes (Golytely) 4,000 ml PO ONCE NR Stop: 05/20/17 18:00 Quetiapine Fumarate (Seroquel) 100 mg PO BID ALICIA Exam - Constitutional Vital Signs: Temp Pulse Resp BP Pulse Ox 97.9 F 101 H 22 144/72 99 05/20/17 13:00 05/20/17 13:00 05/20/17 13:00 05/20/17 13:00 05/20/17 13:00 - Labs CBC & Chem 7: 05/20/17 09:32 05/20/17 03:40 Lab Results: Laboratory Results - last 24 hr 05/19/17 05/20/17 05/20/17 21:07 03:40 03:40 WBC 6.2 RBC 3.36 L Hgb 12.5 11.9 Hct 36.4 34.5 MCV 103 H MCH 36 H MCHC 35 H RDW 13.0 L Plt Count 252 Lymph % (Auto) 11.0 L [place] % (Auto) 12.9 H Eos % (Auto) 0.9 Baso % (Auto) 0.5 Lymph # 0.7 L [place] # 0.8 Eos # 0.1 Baso # 0.0 Seg Neutrophils % 74.7 H Seg Neutrophils # 4.6 Sodium 136 L Potassium 3.8 Chloride 97.5 L Carbon Dioxide 23 Anion Gap 19 BUN 10 Creatinine 0.5 L Estimated GFR > 60 BUN/Creatinine Ratio 20.00 Glucose 120 H Calcium 8.5 Total Bilirubin 0.20 AST 10 ALT 7 Alkaline Phosphatase 109 Total Protein 5.6 L Albumin 3.2 L Albumin/Globulin Ratio 1.3 Phenytoin 05/20/17 05/20/17 05:10 09:32 WBC RBC Hgb 12.6 Hct 37.2 MCV MCH MCHC RDW Plt Count Lymph % (Auto) [place] % (Auto) Eos % (Auto) Baso % (Auto) Lymph # [place] # Eos # Baso # Seg Neutrophils % Seg Neutrophils # Sodium Potassium Chloride Carbon Dioxide Anion Gap BUN Creatinine Estimated GFR BUN/Creatinine Ratio Glucose Calcium Total Bilirubin AST ALT Alkaline Phosphatase Total Protein Albumin Albumin/Globulin Ratio Phenytoin 16.1 Assessment and Plan Pt was told she had diverticula during a prior colonoscopy at [facility]. Plan as above
[2017-05-20 10:17] LABS: Hematocrit 37.2 % (30.3-42.9); Hemoglobin 12.6 gm/dl (10.1-14.3)
[2017-05-20] MEDS ORDERED: GOLYTELY PO NR ×2 (10:30→21:00)
[2017-05-20] MEDS ORDERED: NORCO 7.5/325 PO PRN (12:34)
[2017-05-20] MEDS ORDERED: HALDOL IM PRN (12:37)
[2017-05-20] MEDS ORDERED: ATIVAN IV ONE (12:50)
--- NOTE | 2017-05-20 13:00 | Admit Criteria Form ---
Admission Criteria Documentation: ABDOMINAL PAIN Clinical Indications for Admission to Inpatient Care ( [place]ahu[place]/check or initial the applicable condition/criteria): Admission is indicated for ANY ONE of the following (1)(2)(3)(4)(5)(6): [ ]I. Surgery needed that cannot be performed on ambulatory basis [ ]II. Peritoneal signs present (eg, rebound tenderness, rigidity) [ ]III. Evaluation requires patient to not eat or drink for extended period ( eg, more than 24 hours). [X ]IV. Inpatient admission required[B] rather than observation care (see Abdominal Pain: Observation Care guideline as appropriate) because of ANY ONE of the following(7)(8)(9): [ ] a) Hemodynamic instability [ ]b) Severe pain requiring acute inpatient management [ ]c) Identification of etiology or finding that requires inpatient care (eg, aortic dissection, free air,bowel ischemia)(10) [ ]d) Absent bowel sounds with complete ileus (11) [ ]e) Signs of intestinal obstruction[C] [ ]f) Suspected toxic megacolon [ ]g) Severe electrolyte abnormalities requiring inpatient care [ ]h) High fever or infection requiring inpatient admission as indicated by ANY ONE of the following (12)(13): [ ]i) Appropriate outpatient or observation care antimicrobial treatment unavailable, not effective, or not feasible [ ]ii) Documented bacteremia [ ]iii) Temperature greater than 104.9 degrees F (40.5 degrees C) (oral) [ ]iv) Temperature greater than 103.1 degrees F (39.5 degrees C) ( oral) or less than 96.8 degrees F (36 degrees C) (rectal) that does not respond to all emergency treatment measures [ ]i) IV fluid required rather than oral rehydration to replace significant ongoing (eg, for greater than 24 hours) losses (greater than 3 L/m2 per day)(14)(15) [ ]j) Percutaneous or open drainage (eg, abscess, biliary tract) procedures [ ]k) Parenteral nutrition regimen that must be implemented on inpatient basis [ X]l) Other condition, treatment, or monitoring requiring inpatient admission Extended stay beyond goal length of stay may be needed for (1)(3)(4)(10)(16): [ ]a) Surgery (e.g., colectomy, revascularization procedure) [ ]b) Persistent abdominal pain with suspected intra-abdominal process [ ]c) Diagnosed condition requiring continued stay (e.g., pancreatitis, complicated diverticulitis) The original [facility] content created by [facility] has been revised. The portions of the content which have been revised are identified through the use of italic text or in bold, and [facility] has neither reviewed nor approved the modified material.All other unmodified content is copyright [facility]. Please see references footnoted in the original [facility] edition 2017 Admission Criteria Met: Yes
[2017-05-20] MEDS: DILANTIN PO SCH ×2 (13:47→22:15)
[2017-05-20] MEDS: NEURONTIN PO SCH ×2 (13:47→22:15)
[2017-05-20] MEDS: LASIX IV SCH (13:47)
[2017-05-20] MEDS: ATIVAN PO SCH ×2 (13:48→22:15)
[2017-05-20 14:34] LABS: Hematocrit 34.5 % (30.3-42.9); Hemoglobin 11.8 gm/dl (10.1-14.3)
--- NOTE | 2017-05-20 16:46 | Progress Note ---
Assessment and Plan Assessment and plan: 81-year-old female, as per her family members. She had a stroke about a year ago and since then she has had a lot of change in her personality she become erratic, anxious confused all the time, she is always complaining of pain and only screaming. Family highly doubts that she has pain and he thinks she is mostly confused. She sleeps alone at night and she has a fair appetite, but during the day she is anxious confused agitated and screaming. Doctors have tried multiple medications for her and has not quite gotten it right. She has a chronic ventral hernia and she has been told that showed diverticular disease in the past. She had 1 bloody bowel movements to have bright red blood in it. After which she freaked out and became agitated and extremely confused. Therefore her family brought her to the hospital. The family is more concerned with getting her mental health rights so that she can be calm at home. Lower GI hemorrhage Suspect hemorrhoidal bleeding, hemoglobin stable, GI consult appreciated Metabolic encephalopathy Continue IV fluids, mental health consult appreciated with give Haldol as needed for agitation. Continue Seroquel and Ativan. Hypertension Optimize medications HLD (hyperlipidemia) Continue statins Depression Cont Amitryptiline Seizure disorder Cont Dilantin Dilantin level within therapeutic levels DVT prophylaxis SCDs in light of GI bleed History Interval history: The patient was screaming agitated and yelling her nurses name. She was given Ativan after which she calmed down. The patient herself requested Ativan and Dilaudid Hospitalist Physical - Physical exam Narrative exam: General: Patient appears well in no distress HEENT: MMM, EOMI cardiac: S1-S2 heard lungs: clear to auscultation, abdomen: soft, nontender, nondistended bowel sounds positive extremities: no edema clubbing or cyanosis Skin: no rash or lesion Neuro: Somnolent, moves all extremities, obese commands but falls back asleep. Able to say her name Psych: Somnolence - Constitutional Vitals: Temp Pulse Resp BP Pulse Ox 97.9 F 101 H 22 144/72 99 05/20/17 13:00 05/20/17 13:00 05/20/17 13:00 05/20/17 13:00 05/20/17 13:00 Results - Labs CBC & Chem 7: 05/20/17 13:44 05/20/17 03:40 Labs: Laboratory Last Values WBC 6.2 K/mm3 (4.5-11.0) 05/20/17 03:40 RBC 3.36 M/mm3 (3.65-5.03) L 05/20/17 03:40 Hgb 11.8 gm/dl (10.1-14.3) 05/20/17 13:44 Hct 34.5 % (30.3-42.9) 05/20/17 13:44 MCV 103 fl (79-97) H 05/20/17 03:40 MCH 36 pg (28-32) H 05/20/17 03:40 MCHC 35 % (30-34) H 05/20/17 03:40 RDW 13.0 % (13.2-15.2) L 05/20/17 03:40 Plt Count 252 K/mm3 (140-440) 05/20/17 03:40 Lymph % (Auto) 11.0 % (13.4-35.0) L 05/20/17 03:40 Trigg % (Auto) 12.9 % (0.0-7.3) H 05/20/17 03:40 Eos % (Auto) 0.9 % (0.0-4.3) 05/20/17 03:40 Baso % (Auto) 0.5 % (0.0-1.8) 05/20/17 03:40 Lymph # 0.7 K/mm3 (1.2-5.4) L 05/20/17 03:40 Trigg # 0.8 K/mm3 (0.0-0.8) 05/20/17 03:40 Eos # 0.1 K/mm3 (0.0-0.4) 05/20/17 03:40 Baso # 0.0 K/mm3 (0.0-0.1) 05/20/17 03:40 Seg Neutrophils % 74.7 % (40.0-70.0) H 05/20/17 03:40 Seg Neutrophils # 4.6 K/mm3 (1.8-7.7) 05/20/17 03:40 Sodium 136 mmol/L (137-145) L 05/20/17 03:40 Potassium 3.8 mmol/L (3.6-5.0) 05/20/17 03:40 Chloride 97.5 mmol/L (98-107) L 05/20/17 03:40 Carbon Dioxide 23 mmol/L (22-30) 05/20/17 03:40 Anion Gap 19 mmol/L 05/20/17 03:40 BUN 10 mg/dL (7-17) 05/20/17 03:40 Creatinine 0.5 mg/dL (0.7-1.2) L 05/20/17 03:40 Estimated GFR > 60 ml/min 05/20/17 03:40 BUN/Creatinine Ratio 20.00 % 05/20/17 03:40 Glucose 120 mg/dL (65-100) H 05/20/17 03:40 Calcium 8.5 mg/dL (8.4-10.2) 05/20/17 03:40 Total Bilirubin 0.20 mg/dL (0.1-1.2) 05/20/17 03:40 AST 10 units/L (5-40) 05/20/17 03:40 ALT 7 units/L (7-56) 05/20/17 03:40 Alkaline Phosphatase 109 units/L (35-129) 05/20/17 03:40 Troponin T < 0.010 ng/mL (0.00-0.029) 05/19/17 13:20 NT-Pro-B Natriuret Pep 2937 pg/mL (0-900) H 05/19/17 13:20 Total Protein 5.6 g/dL (6.3-8.2) L 05/20/17 03:40 Albumin 3.2 g/dL (3.9-5) L 05/20/17 03:40 Albumin/Globulin Ratio 1.3 % 05/20/17 03:40 Lipase 14 units/L (13-60) 05/19/17 09:44 Urine Color Yellow (Yellow) 05/19/17 09:50 Urine Turbidity Clear (Clear) 05/19/17 09:50 Urine pH 6.0 (5.0-7.0) 05/19/17 09:50 Ur Specific Harvey 1.010 (1.003-1.030) 05/19/17 09:50 Urine Protein <15 mg/dl mg/dL (Negative) 05/19/17 09:50 Urine Glucose (UA) Neg mg/dL (Negative) 05/19/17 09:50 Urine Ketones Neg mg/dL (Negative) 05/19/17 09:50 Urine Blood Mod (Negative) 05/19/17 09:50 Urine Nitrite Neg (Negative) 05/19/17 09:50 Urine Bilirubin Neg (Negative) 05/19/17 09:50 Urine Urobilinogen < 2.0 mg/dL (<2.0) 05/19/17 09:50 Ur Leukocyte Esterase Tr (Negative) 05/19/17 09:50 Urine WBC (Auto) 4.0 /HPF (0.0-6.0) 05/19/17 09:50 Urine RBC (Auto) 4.0 /HPF (0.0-6.0) 05/19/17 09:50 U Epithel Cells (Auto) < 1.0 /HPF (0-13.0) 05/19/17 09:50 Urine Bacteria (Auto) 1+ /HPF (Negative) 05/19/17 09:50 Phenytoin 16.1 mg/L (10.0-20.0) 05/20/17 05:10 - Imaging and Cardiology Chest x-ray: image reviewed (no infiltrates) Abdominal x-ray: image reviewed (no acute findings) CT scan - abdomen: image reviewed (no acute findings)
[2017-05-20] MEDS ORDERED: NON-FORMULARY (Rosuvastatin (Nf) 5 MG) PO SCH (22:00)
[2017-05-20] MEDS ORDERED: XALATAN 0.005% OU SCH (22:00)
[2017-05-20] MEDS ORDERED: ELAVIL PO SCH ×2 (22:00)
[2017-05-21] MEDS: D5NS 1,000 ML IV SCH (05:46)
[2017-05-21] MEDS: DILANTIN PO SCH (05:47)
[2017-05-21] MEDS: NEURONTIN PO SCH (05:47)
[2017-05-21 06:12] LABS: INR 0.97 (0.87-1.13)
[2017-05-21] MEDS ORDERED: WATER FOR IRRIG STERILE ONE (08:19)
[2017-05-21] MEDS ORDERED: WATER FOR IRRIG STERILE IR ONE (08:19)
[2017-05-21] MEDS ORDERED: NACL 0.9% 1000 ML 1,000 ML ONE (08:29)
--- NOTE | 2017-05-21 08:43 | Discharge Summary ---
Providers - Providers Date of Admission: 05/19/17 17:40 Attending physician: TRI FLOR MD 05/19/17 20:04 Consult to Physician [CONS] Routine Consulting Provider: LONNIE MORALES Reason For Exam: Lower GI Bleed Place consult to:: Dr. Morales Notified:: Teri CAST Phone number called:: Was contact made?: Yes If yes, spoke with:: Estrellita-answering service Time called:: 08:29 05/20/17 12:37 Consult to Mental Health [CONS] Routine Reason For Exam: behavioral disturbance Place consult to:: Mental Health Notified:: Teri CAST Phone number called:: [phone] Was contact made?: Yes If yes, spoke with:: Nely-Mental health Time called:: 12:52 Primary care physician: STOCK REPLENISHER Hospitalization Condition: Fair Procedures: EGD/Colonoscopy showed diverticulosis and hemorrhoids, no active bleeding Hospital course: 81-year-old female, as per her family members. She had a stroke about a year ago and since then she has had a lot of change in her personality she become erratic, anxious confused all the time, she is always complaining of pain and only screaming. Family highly doubts that she has pain and he thinks she is mostly confused. She sleeps alone at night and she has a fair appetite, but during the day she is anxious confused agitated and screaming. Doctors have tried multiple medications for her and has not quite gotten it right. She has a chronic ventral hernia and she has been told that showed diverticular disease in the past. She had 1 bloody bowel movements to have bright red blood in it. After which she freaked out and became agitated and extremely confused. Therefore her family brought her to the hospital. The family is more concerned with getting her mental health rights so that she can be calm at home. Her hemoglobin was stable. She went on to have an EGD and colonoscopy did not show any active bleeding. It showed left-sided diverticulosis and internal and external hemorrhoids.No active bleeding. Brown stool is seen. She most likely had a hemorrhoidal bleed. For metabolic encephalopathy, she received behavioral medications, she was, afterwards. She was continued on medications for her chronic problems include hypertension and hyperlipidemia, depression, seizure disorder. Her Dilantin levels were checked while in hospital and at therapeutic levels. Discharge diagnoses Lower GI hemorrhage Metabolic encephalopathy Hypertension HLD (hyperlipidemia) Depression Seizure disorder Disposition: [id number]/TX-06 HOME UNDER HOME HLTH Time spent for discharge: 33 minutes Core Measure Documentation - Palliative Care Palliative Care/ Comfort Measures: Not Applicable - Core Measures Any of the following diagnoses?: none Exam - Constitutional Vitals: Temp Pulse Resp BP Pulse Ox 98.7 F 93 H 20 126/61 96 05/21/17 04:14 05/21/17 04:14 05/21/17 04:14 05/21/17 04:14 05/21/17 04:14 General appearance: Present: no acute distress, well-nourished - EENT Eyes: Present: PERRL ENT: hearing intact, clear oral mucosa - Neck Neck: Present: supple, normal ROM - Respiratory Respiratory effort: normal Respiratory: bilateral: CTA - Cardiovascular Heart Sounds: Present: S1 & S2. Absent: rub, click - Extremities Extremities: pulses symmetrical, No edema Peripheral Pulses: within normal limits - Abdominal General gastrointestinal: Present: soft, non-tender, non-distended, normal bowel sounds Female genitourinary: Present: normal - Integumentary Integumentary: Present: clear, warm, dry - Musculoskeletal Musculoskeletal: gait normal, strength equal bilaterally - Psychiatric Psychiatric: appropriate mood/affect, no intact judgment & insight - Neurologic Neurologic: CNII-XII intact, moves all extremities Plan Follow up with: PRIMARY CARE, [Primary Care Provider] - 3-5 Days Prescriptions: Gabapentin [Neurontin] 100 mg PO Q8HR #90 capsule Haloperidol [Haldol] 1 mg PO BID PRN #60 tablet PRN Reason: Agitation HYDROcodone/APAP 7.5-325 [[place] 7.5-325 mg TAB] 1 each PO Q8HR PRN #14 tablet PRN Reason: Pain LORazepam [Ativan] 0.5 mg PO TID #14 tablet
[2017-05-21] MEDS ORDERED: DIPRIVAN 10 MG/ML IV ONE (08:45)
--- NOTE | 2017-05-21 09:22 | Post Operative Note ---
Pre-op diagnosis: hematochezia Post-op diagnosis: other (left sided diverticulosis, internal hemorrhoids) Findings: Colonoscopy to cecum, fair/adequate prep: 1. left sided diverticulosis 2. Internal and external hemorrhoids Brown liquid stool, no blood seen during procedure. Procedure: colonoscopy Anesthesia: MAC Surgeon: ELLEN HOLGUIN Estimated blood loss: none Pathology: none Condition: stable Disposition: floor
--- NOTE | 2017-05-21 09:27 | Operative Report ---
Operative Report Operative Report: COLONOSCOPY PROCEDURE NOTE DATE OF PROCEDURE: 05/21/2017 DATE OF : 1935 PRE-OP DIAGNOSIS: hematochezia POST-OP DIAGNOSIS: left sided diverticulosis, hemorrhoids ANESTHESIA: MAC COMPLICATIONS: no immediate complications ESTIMATED BLOOD LOSS: none PROCEDURE: After consent was obtained, the patient was placed in the left lateral decubitus position. The procedure was performed in the OR. The patient's vital signs were monitored throughout the procedure. The fujinon colonoscope was inserted into the rectum under direct vision, and advanced to the cecum without difficulty. The patient tolerated the procedure well. The views of the mucosa were good. The quality of prep was fair/adequate. FINDINGS: There were multiple small and medium sized diverticula in the left side of the colon. Brown liquid stool was seen in the left side of the colon. No blood, or high risk bleeding stigmata seen. Moderate sized internal and external hemorrhoids. Otherwise, the colon appeared normal IMPRESSION: 1. Left sided diverticulosis 2. hemorrhoids No signs of bleeding or high risk bleeding lesions. Bleeding could have been due to hemorrhoids vs diverticulosis, however appears to have resolved. RECOMMENDATIONS: -high fiber diet daily -okay to restart diet -hemorrhoidal suppository/cream as needed -patient can be discharged home from GI stand point Will sign off, please call as needed. Follow-up in GI clinic in 1 month after discharge.
--- NOTE | 2017-05-21 09:28 | Anesthesia Day of Surgery ---
Anesthesia Day of Surgery - Day of Surgery Patient Examined: Yes Patient H&P Reviewed: Yes Patient is NPO: Yes
--- NOTE | 2017-05-21 09:30 | Anesthesia Consultation ---
Anesthesia Consult and Med Hx Date of service: 05/21/17 - Airway Anesthetic Teeth Evaluation: Partials (upper) ROM Head & Neck: Adequate Mental/Hyoid Distance: Adequate Mallampati Class: Class III Intubation Access Assessment: Probably Good - Pulmonary Exam CTA: Yes - Cardiac Exam Cardiac Exam: RRR - Pre-Operative Health Status ASA Pre-Surgery Classification: ASA3 Proposed Anesthetic Plan: MAC - Pulmonary Hx Smoking: No - Cardiovascular System Hx Hypertension: Yes Hx Heart Attack/AMI: No - Central Nervous System Hx Neuromuscular Disorder: Yes (trigeminal neuralgia) Hx Seizures: Yes CVA: Yes ('14 and '16, rt hand sensation) Hx Psychiatric Problems: Yes (depression) - Gastrointestinal Hx Gastroesophageal Reflux Disease: Yes (diaphragmatic hernia) - Endocrine Hx Liver Disease: No - Other Systems Hx Obesity: No - Additional Comments Anesthesia Medical History Comments: NAC
[2017-05-21] MEDS ORDERED: NON-FORMULARY (Quetiapine Fumarate [Seroquel Xr] 200 MG) PO SCH (10:00)
[2017-05-21] MEDS ORDERED: ARICEPT PO SCH (10:00)
[2017-05-21] MEDS ORDERED: NON-FORMULARY (Losartan [Cozaar] 100 MG) PO SCH (10:00)
[2017-05-21] MEDS ORDERED: NON-FORMULARY (Fluoxetine Hcl [Prozac] 40 MG) PO SCH (10:00)
[2017-05-21] MEDS ORDERED: COZAAR PO SCH (10:00)
[2017-05-21] MEDS ORDERED: PROzac PO SCH (10:00)
[2017-05-21] MEDS ORDERED: TENORMIN PO SCH (10:00)
[2017-05-21 10:24] VITALS: BP 121/48
[2017-05-21] MEDS: ATIVAN PO SCH (11:34)
[2017-05-21] MEDS: LASIX IV SCH (11:35)
[2017-05-21] MEDS: PROTONIX IV SCH (12:38)
--- NOTE | 2017-05-21 15:05 | Post Anesthesia Evaluation ---
- Post Anesthesia Evaluation Patient Participated: Yes Airway Patent: Yes Stable Respiratory Function: Yes Nausea/Vomiting: No Temp > 96.8F: Yes Pain Manageable: Yes Adequeate Hydration: Yes Anesthesia Complications: No Block Receding Appropriately: Not Applicable Patient on Ventilator: No
== END 2017-05-21 14:42 | disposition home health service (06) | DRG 393 ==
LOC: ED 08:59 → 4A 17:40
PROVIDERS: ADMIT Internal Medicine; ATTEND Internal Medicine
PROC: 0DJD8ZZ Inspection of Lower Intestinal Tract, Via Natural or Artificial Opening Endoscopic (ICD-10-PCS; principal; 2017-05-21)
DX: K64.8 Other hemorrhoids (principal); K57.31 Diverticulosis of large intestine without perforation or abscess with bleeding; G93.41 Metabolic encephalopathy; E87.1 Hypo-osmolality and hyponatremia; I50.9 Heart failure, unspecified; K64.4 Residual hemorrhoidal skin tags; I11.0 Hypertensive heart disease with heart failure; G50.0 Trigeminal neuralgia; F32.9 Major depressive disorder, single episode, unspecified; K21.9 Gastro-esophageal reflux disease without esophagitis; K44.9 Diaphragmatic hernia without obstruction or gangrene; Z86.73 Personal history of transient ischemic attack (TIA), and cerebral infarction without residual deficits; E78.00 Pure hypercholesterolemia, unspecified; F41.9 Anxiety disorder, unspecified; Z90.710 Acquired absence of both cervix and uterus; Z90.49 Acquired absence of other specified parts of digestive tract; N20.0 Calculus of kidney; Z79.899 Other long term (current) drug therapy; G40.909 Epilepsy, unspecified, not intractable, without status epilepticus; Z82.49 Family history of ischemic heart disease and other diseases of the circulatory system
CPT/HCPCS: 36415; 74022; 74177; 80053; 80185; 81001; 83690; 83880; 84484; 85014; 85018; 85025; 85610; 93306; 96365; 96375; A9270-GY; C9113; J1170; J1940; J2060; J2270; J2405; J2704; J2765; J7030; J7040; J7042; Q9967

== ENCOUNTER 2017-07-22 21:28 | Emergency (ER) | payer MEDICARE, OTHER ==
[2017-07-22] MEDS ORDERED: TYLENOL ONE (21:48)
--- NOTE | 2017-07-22 22:11 | Emergency Department Report ---
ED Fall HPI - General Chief Complaint: Fall Stated Complaint: FALL Time Seen by Provider: 07/22/17 22:05 Source: patient, family, EMS Mode of arrival: Stretcher - History of Present Illness Initial Comments: 81 YO FEMALE WHO LIVES ALONE AND HAS A MORNING SHOW HOST IN THE ED TODAY BECAUSE OF A FALL. SHE HAS BEEN HAVING MORE FREQUENT FALLS IN THE LAST 2 WEEKS AND HAS NOT BEEN EATING MUCH IN THE LAST 3 MONTHS. SHE IS DEPRESSED BECAUSE HER WITH WHOM SHE WAS FOR MOST OF HER LIFE. SHE HAD A SIMILAR FALL 2 YEARS AGO WHICH RESULTED IN A BRAIN HEMORRHAGE.. SHE PRESENTS WITH DEFORMITY OF THE NOSE FROM A GROUNG LEVEL FALL.. PT REFUSED TO WEAR CERVICAL COLLAR BECAUSE IT WAS UNCOMFORTABLE. PER FAMILY MEMBERS SHE FORGETS BECAUSE OF DEMENTIA THAT SHE MUST NOT AMBULATE BY HERSELF. MD Complaint: fall -: Sudden Fall From: standing When Fall Occurred: other (CLOTHING CUTTER) Fall Witnessed: yes, by bystander (HOME HELPER) Place Fall Occurred: home Loss of Consciousness: none Prolonged Down Time?: no Symptoms Prior to Fall: none Location: head, face Context: tripped/slipped Associated Symptoms: other (PAIN ALL OVER) - Related Data Home Medications Medication Instructions Recorded Confirmed Last Taken Losartan [Cozaar] 100 mg PO QDAY 10/14/15 07/22/17 05/18/17 Phenytoin [Dilantin] 100 mg PO Q8HR 10/14/15 07/22/17 05/18/17 Rosuvastatin (Nf) [Crestor] 5 mg PO QHS 10/14/15 07/22/17 05/18/17 Triamter/Hctz 37.5-25 mg 1 tab PO QDAY 11/14/16 07/22/17 05/18/17 [Maxzide-25] Atenolol [Tenormin] 50 mg PO DAILY 05/19/17 07/22/17 05/18/17 Dicyclomine [Bentyl] 20 mg PO QID PRN 05/19/17 07/22/17 05/18/17 Donepezil [Aricept] 10 mg PO QDAY 05/19/17 07/22/17 05/18/17 FLUoxetine HCL [PROzac] 40 mg PO QDAY 05/19/17 07/22/17 05/18/17 Latanoprost 0.005% [Xalatan 0.005%] 1 drop OU HS 05/19/17 07/22/17 05/18/17 LORazepam [Ativan] 0.5 mg PO QID 07/22/17 07/22/17 Unknown Lasix TAB 07/22/17 Unknown Potassium Chloride [K-Dur] 1 tab PO DAILY 07/22/17 07/22/17 Unknown Previous Rx's Medication Instructions Recorded Last Taken Type HYDROcodone/APAP 7.5-325 [[place] 1 each PO Q8HR PRN #14 tablet 05/21/17 Unknown Rx 7.5-325 mg TAB] Allergies Allergy/AdvReac Type Severity Reaction Status Date / Time No Known Allergies Allergy Unverified 06/06/15 09:02 ED Review of Systems ROS: Stated complaint: FALL Other details as noted in HPI Cardiovascular: denies: chest pain, palpitations Endocrine: no symptoms reported Gastrointestinal: denies: abdominal pain, nausea, diarrhea Genitourinary: denies: urgency, dysuria, discharge Musculoskeletal: arthralgia Skin: denies: rash, lesions Neurological: confusion Psychiatric: depression, other (POOR APPETITE) ED Past Medical Hx - Past Medical History Hx Hypertension: Yes Hx CVA: Yes Hx Heart Attack/AMI: No Hx Congestive Heart Failure: Yes Hx GERD: Yes Hx Liver Disease: No Hx Seizures: Yes Hx Kidney Stones: Yes Hx Psychiatric Treatment: Yes (Major Depression) Additional medical history: Elevated Cholesterol, anxiety disorder, trigeminal neuralgia - Surgical History Hx Cholecystectomy: Yes Additional Surgical History: Hysterectomy - Social History Smoking Status: Never Smoker Substance Use Type: Prescribed - Medications Home Medications: Home Medications Medication Instructions Recorded Confirmed Last Taken Type Losartan [Cozaar] 100 mg PO QDAY 10/14/15 07/22/17 05/18/17 History Phenytoin [Dilantin] 100 mg PO Q8HR 10/14/15 07/22/17 05/18/17 History Rosuvastatin (Nf) [Crestor] 5 mg PO QHS 10/14/15 07/22/17 05/18/17 History Triamter/Hctz 37.5-25 mg 1 tab PO QDAY 11/14/16 07/22/17 05/18/17 History [Maxzide-25] Atenolol [Tenormin] 50 mg PO DAILY 05/19/17 07/22/17 05/18/17 History Dicyclomine [Bentyl] 20 mg PO QID PRN 05/19/17 07/22/17 05/18/17 History Donepezil [Aricept] 10 mg PO QDAY 05/19/17 07/22/17 05/18/17 History FLUoxetine HCL [PROzac] 40 mg PO QDAY 05/19/17 07/22/17 05/18/17 History Latanoprost 0.005% [Xalatan 0.005%] 1 drop OU HS 05/19/17 07/22/17 05/18/17 History HYDROcodone/APAP 7.5-325 [[place] 1 each PO Q8HR PRN #14 tablet 05/21/17 07/22/17 Unknown Rx 7.5-325 mg TAB] LORazepam [Ativan] 0.5 mg PO QID 07/22/17 07/22/17 Unknown History Lasix TAB 07/22/17 Unknown History Potassium Chloride [K-Dur] 1 tab PO DAILY 07/22/17 07/22/17 Unknown History ED Physical Exam - General Limitations: Other General appearance: alert, in no apparent distress - Head Head exam: Present: other (NOSE DEFORMITY, RIGHT FRONTAL FORE HEAD SMALL BRUISING AND SWELLING) - Eye Eye exam: Present: normal appearance, EOMI. Absent: scleral icterus, conjunctival injection, periorbital swelling, periorbital tenderness - ENT ENT exam: Present: mucous membranes moist - Neck Neck exam: Present: normal inspection, full ROM. Absent: tenderness - Respiratory Respiratory exam: Present: rales (LEFT BASE). Absent: respiratory distress - Cardiovascular Cardiovascular Exam: Present: regular rate, normal rhythm, systolic murmur ( GRADE I). Absent: diastolic murmur, rubs, gallop - GI/Abdominal GI/Abdominal exam: Present: soft, tenderness (MILD DIFFUSE TENDERNESS ESPECIALLY OVER BLADDER), normal bowel sounds. Absent: guarding, rebound, rigid - Rectal Rectal exam: Present: deferred - Extremities Exam Extremities exam: Present: full ROM, normal capillary refill, other (BRUISING). Absent: pedal edema, joint swelling - Back Exam Back exam: Present: normal inspection, full ROM - Neurological Exam Neurological exam: Present: alert, oriented X3, CN II-XII intact - Psychiatric Psychiatric exam: Present: depressed - Skin Skin exam: Present: warm, dry, intact, normal color, rash (LEGS), ecchymosis ( ON LEGS, BRUISING ON NOSE, RIGHT FOREHEAD) ED Course Vital Signs 07/22/17 07/22/17 21:42 22:00 Temperature 98.6 F Pulse Rate 82 Respiratory 18 18 Rate Blood Pressure 133/67 O2 Sat by Pulse 98 Oximetry ED Medical Decision Making - Lab Data Result diagrams: 07/22/17 Unknown 07/22/17 Unknown - EKG Data EKG shows normal: axis Rate: normal (88) - EKG Data 07/22/17 23:41 ATRIAL FLUTTER WITH 4:1 BLOCK,Q ANTERIORLY, NONSPECIFIC T WAVE CHANGES - Radiology Data Radiology results: report reviewed (CT HEAD: MODERATE CEREBRALATROPHY, CHRONIC ISCHEMIC CHANGES, MILD MASTOIDITIS, MILD ETHMOID SINUSITIS ;CT FACE;;NO ACUTE FRACTURE,: CT NECK: NO ACUTE FRACTURE) - Medical Decision Making FAMILY DO NOT WANT TO WAIT FOR BLOOD RESULTS . SHE HAS LABS SCHEDULED ON TUESDAY. THEY REFUSED URINE TO BE TAKEN. THEY ONLY CAME TO HAVE SCANS TO MAKE SURE NOTHING IS BROKEN AND THAT SHE DOES NOT HAVE A HEAD BLEED. Critical care attestation.: If time is entered above; I have spent that time in minutes in the direct care of this critically ill patient, excluding procedure time. ED Disposition Clinical Impression: Closed head injury Qualifiers: Encounter type: initial encounter Qualified Code(s): S09.90XA - Unspecified injury of head, initial encounter Facial contusion Qualifiers: Encounter type: initial encounter Qualified Code(s): S00.83XA - Contusion of other part of head, initial encounter Disposition: - TO HOME OR SELFCARE Is pt being admited?: No Does the pt Need Aspirin: No Condition: Stable Instructions: Minor Head Injury (ED), Fall Prevention for Older Adults (ED) Additional Instructions: PLEASE BRING HER BACK FOR ANY REASON. Referrals: PRIMARY CARE [Primary Care Provider] - 3-5 Days Time of Disposition: 23:33
--- NOTE | 2017-07-22 22:35 | Cat Scan Report ---
FINAL REPORT PROCEDURE: CT head without contrast. TECHNIQUE: Computerized tomography of the head was performed without contrast material. HISTORY: Patient fell, head and facial injury. COMPARISON: No prior studies are available for comparison. FINDINGS: There is moderate cerebral atrophy. There are probably old lacunar infarcts in the basal ganglia bilaterally and in the left side of the thalamus. There are no mass lesions. There is no intracranial hemorrhage. There is mild evidence of chronic ischemic white matter disease. There are no signs of acute infarction. There are 2 chilango holes in the right side of the calvarium. There is a tiny amount of fluid in a few of the mastoid air cells bilaterally. There is fluid in the right middle ethmoid air cell. IMPRESSION: Moderate cerebral atrophy and chronic ischemic changes as described. No evidence of acute intracranial injury. Mild mastoiditis. Mild ethmoid sinusitis.
--- NOTE | 2017-07-22 22:40 | Cat Scan Report ---
FINAL REPORT PROCEDURE: CT facial bones without contrast. TECHNIQUE: Computerized tomography of the facial bones and soft tissues with axial and coronal sections performed from the cranial aspect of the frontal sinuses to the caudal portion of the mandible without contrast material. HISTORY: Patient fell, facial injury. COMPARISON: No prior studies are available for comparison. FINDINGS: There is minimal angulation of the left nasal bone. I do not think this represents an acute fracture but clinical correlation is recommended. The remaining facial bones appear intact. The orbital contents appear normal. There are no blowout type injuries. The mastoid air cells contain a tiny amount of fluid. There is fluid in the right middle ethmoid air cell. There is a small amount of fluid in the right sphenoid sinus. The facial soft tissues are unremarkable. IMPRESSION: No definite facial fracture.
[2017-07-22] MEDS ORDERED: MORPHINE ONE (22:42)
[2017-07-22] MEDS ORDERED: ZOFRAN ONE (22:43)
[2017-07-22] MEDS ORDERED: ATIVAN ONE (22:43)
[2017-07-22 22:49] LABS: Hemoglobin 13.9 gm/dl (10.1-14.3); Mean Corpuscular HGB Conc 34 % (30-34); Mean Corpuscular Hemoglobin 37 pg (28-32); Mean Corpuscular Volume 109 fl (79-97); Platelet Count 212 K/mm3 (140-440); Red Blood Count 3.76 M/mm3 (3.65-5.03); Red Cell Distribution Width 15.9 % (13.2-15.2); White Blood Count 4.5 K/mm3 (4.5-11.0)
--- NOTE | 2017-07-22 22:50 | Cat Scan Report ---
FINAL REPORT PROCEDURE: CT cervical spine without contrast. TECHNIQUE: Computerized tomography of the cervical spine was performed from the skull base to T1 without contrast material. HISTORY: Patient fell, neck pain. COMPARISON: No prior studies are available for comparison. FINDINGS: The cervical vertebrae have normal height and alignment. There are no fractures. There is no subluxation. There is mild disc space narrowing at C6-7. The spinal canal is widely patent. 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 The neural foramina are adequately patent. The prevertebral soft tissues have normal thickness. IMPRESSION: No evidence of acute cervical spine injury.
[2017-07-22 22:59] LABS: INR 0.97 (0.87-1.13)
[2017-07-22 23:00] LABS: Partial Thromboplastin Time 27.8 Sec. (24.2-36.6)
[2017-07-22] MEDS ORDERED: TYLENOL PO ONE (23:10)
[2017-07-22 23:14] LABS: Anion Gap 18 mmol/L; BUN/Creatinine Ratio 20; Blood Urea Nitrogen 14 mg/dL (7-17); Calcium 8.5 mg/dL (8.4-10.2); Carbon Dioxide 24 mmol/L (22-30); Chloride 103.9 mmol/L (98-107); Glucose 107 mg/dL (65-100); Potassium 4.6 mmol/L (3.6-5.0); Sodium 141 mmol/L (137-145)
[2017-07-22 23:21] LABS: Basophils % (Manual) 0 % (0.0-1.8); Blastocytes % (Manual) 0 %; Eosinophils % (Manual) 0 % (0.0-4.3)
[2017-07-22 23:22] LABS: Anisocytosis 1+; Diff Status Complete
[2017-07-22] MEDS ORDERED: MORPHINE IV ONE (23:24)
[2017-07-22] MEDS ORDERED: ZOFRAN IV ONE (23:25)
[2017-07-22] MEDS ORDERED: ATIVAN IV ONE (23:25)
[2017-07-22 23:28] LABS: Creatine Kinase 22 units/L (30-135)
[2017-07-23 01:14] VITALS: BP 124/84
--- NOTE | 2017-07-23 09:37 | XRay Report ---
AP CHEST :07/22/17 21:28:00 CLINICAL: Shortness of breath. COMPARISON:11/14/16 and 06/06/15 FINDINGS: Stable cardiomegaly and stable elevation of the left hemidiaphragm. Left basal opacification is unchanged compared to the prior exam. Silhouetting of the left hemidiaphragm and left heart border with opacification of the gastric angle. The right lung base is clear. The upper lung roy are clear. Redistribution of pulmonary blood flow to the upper lobes. No tubes or lines. The bones and soft tissues are normal. IMPRESSION: Chronic elevation left hemidiaphragm and chronic left lower lobe atelectasis without significant change. There is a history of left pleural effusion and a small left pleural effusion cannot be excluded on this exam.
--- NOTE | 2017-07-23 09:41 | XRay Report ---
X-RAY RIGHT FOREARM TWO VIEWS : 07/22/17 22:05 CLINICAL: Fall and decreased range of motion. FINDINGS: Mild osteopenia. A minimally displaced fracture of the distal ulna. The fracture has both transverse and longitudinal components with buckling of the lateral ulnar cortex. No callus. No other fracture is identified. No dislocation at the wrist or elbow. Mild soft tissue swelling. No soft tissue air or foreign body. IMPRESSION: A traumatic minimally displaced acute closed fracture of the distal ulna with no extension into a joint.
== END 2017-07-23 01:14 | disposition home or self-care (01) ==
LOC: ED 21:28
DX: S52.601A Unspecified fracture of lower end of right ulna, initial encounter for closed fracture (principal); S00.83XA Contusion of other part of head, initial encounter; I50.9 Heart failure, unspecified; I10 Essential (primary) hypertension; K21.9 Gastro-esophageal reflux disease without esophagitis; F32.9 Major depressive disorder, single episode, unspecified; F41.9 Anxiety disorder, unspecified; Z90.710 Acquired absence of both cervix and uterus; Z86.73 Personal history of transient ischemic attack (TIA), and cerebral infarction without residual deficits; Z90.49 Acquired absence of other specified parts of digestive tract; W01.0XXA Fall on same level from slipping, tripping and stumbling without subsequent striking against object, initial encounter; Y93.89 Activity, other specified; Y99.8 Other external cause status; Y92.098 Other place in other non-institutional residence as the place of occurrence of the external cause
CPT/HCPCS: 36415; 70450; 70486; 71010; 72125; 80048; 80185; 82550; 83735; 83880; 84484; 85007; 85025; 85379; 85610; 85730; 93005; 93010; J2060; J2270; J2405

== ENCOUNTER 2017-09-11 16:56 | Inpatient (IN) | payer MEDICARE, OTHER ==
--- NOTE | 2017-09-11 20:59 | Emergency Department Report ---
ED General Adult HPI - General Chief complaint: Wound/Laceration Stated complaint: HEMMATOMA ON BUTTOCKS Time Seen by Provider: 09/11/17 20:19 Source: EMS Mode of arrival: Stretcher Limitations: Altered Mental Status, Physical Limitation - History of Present Illness Initial comments: Condition is an 81-year-old female that is on hospice and a DO NOT RESUSCITATE brought to the ER for decreased consciousness and fever and a bedsore on coccyx. Patient lethargic and minimally responsive. Per daughter, patient has been having weakness and difficulties in breathing and shortness of breath for 1 day. Case and care discussed with daughter. Daughter stated that the patient is not to be intubated but all other interventions can be done. Daughter states the patient is currently on antibiotics for UTI. Per EMS patient was hypoxic in route patient is currently on a nonrebreather. Patient does not answer any questions. Patient produces incomprehensible sounds when asked questions. -: Sudden Severity scale (0 -10): 4 - Related Data Home Medications Medication Instructions Recorded Confirmed Last Taken Losartan [Cozaar] 100 mg PO QDAY 10/14/15 07/22/17 05/18/17 Phenytoin [Dilantin] 100 mg PO Q8HR 10/14/15 07/22/17 05/18/17 Rosuvastatin (Nf) [Crestor] 5 mg PO QHS 10/14/15 07/22/17 05/18/17 Triamter/Hctz 37.5-25 mg 1 tab PO QDAY 11/14/16 07/22/17 05/18/17 [Maxzide-25] Atenolol [Tenormin] 50 mg PO DAILY 05/19/17 07/22/17 05/18/17 Dicyclomine [Bentyl] 20 mg PO QID PRN 05/19/17 07/22/17 05/18/17 Donepezil [Aricept] 10 mg PO QDAY 05/19/17 07/22/17 05/18/17 FLUoxetine HCL [PROzac] 40 mg PO QDAY 05/19/17 07/22/17 05/18/17 Latanoprost 0.005% [Xalatan 0.005%] 1 drop OU HS 05/19/17 07/22/17 05/18/17 LORazepam [Ativan] 0.5 mg PO QID 07/22/17 07/22/17 Unknown Lasix TAB 07/22/17 Unknown Potassium Chloride [K-Dur] 1 tab PO DAILY 07/22/17 07/22/17 Unknown Previous Rx's Medication Instructions Recorded Last Taken Type HYDROcodone/APAP 7.5-325 [[place] 1 each PO Q8HR PRN #14 tablet 05/21/17 Unknown Rx 7.5-325 mg TAB] Allergies Allergy/AdvReac Type Severity Reaction Status Date / Time No Known Allergies Allergy Unverified 06/06/15 09:02 ED Review of Systems ROS: Stated complaint: HEMMATOMA ON BUTTOCKS Other details as noted in HPI Comment: Unobtainable due to pts medical conditions (review of systems done with daughter) Constitutional: fever, malaise, weakness Eyes: as per HPI ENT: as per HPI Respiratory: shortness of breath Cardiovascular: as per HPI Endocrine: no symptoms reported Gastrointestinal: as per HPI Genitourinary: urgency, frequency Musculoskeletal: as per HPI Skin: other (bed sore on buttock) Neurological: weakness Hematological/Lymphatic: as per HPI ED Past Medical Hx - Past Medical History Previous Medical History?: Yes Hx Hypertension: Yes Hx CVA: Yes Hx Heart Attack/AMI: No Hx Congestive Heart Failure: Yes Hx GERD: Yes Hx Liver Disease: No Hx Seizures: Yes Hx Kidney Stones: Yes Hx Psychiatric Treatment: Yes (Major Depression) Additional medical history: Elevated Cholesterol, anxiety disorder, trigeminal neuralgia - Surgical History Hx Cholecystectomy: Yes Additional Surgical History: Hysterectomy - Family History Family history: no significant - Social History Smoking Status: Unknown if ever smoked Substance Use Type: Prescribed - Medications Home Medications: Home Medications Medication Instructions Recorded Confirmed Last Taken Type Losartan [Cozaar] 100 mg PO QDAY 10/14/15 07/22/17 05/18/17 History Phenytoin [Dilantin] 100 mg PO Q8HR 10/14/15 07/22/17 05/18/17 History Rosuvastatin (Nf) [Crestor] 5 mg PO QHS 10/14/15 07/22/17 05/18/17 History Triamter/Hctz 37.5-25 mg 1 tab PO QDAY 11/14/16 07/22/17 05/18/17 History [Maxzide-25] Atenolol [Tenormin] 50 mg PO DAILY 05/19/17 07/22/17 05/18/17 History Dicyclomine [Bentyl] 20 mg PO QID PRN 05/19/17 07/22/17 05/18/17 History Donepezil [Aricept] 10 mg PO QDAY 05/19/17 07/22/17 05/18/17 History FLUoxetine HCL [PROzac] 40 mg PO QDAY 05/19/17 07/22/17 05/18/17 History Latanoprost 0.005% [Xalatan 0.005%] 1 drop OU HS 05/19/17 07/22/17 05/18/17 History HYDROcodone/APAP 7.5-325 [[place] 1 each PO Q8HR PRN #14 tablet 05/21/17 07/22/17 Unknown Rx 7.5-325 mg TAB] LORazepam [Ativan] 0.5 mg PO QID 07/22/17 07/22/17 Unknown History Lasix TAB 07/22/17 Unknown History Potassium Chloride [K-Dur] 1 tab PO DAILY 07/22/17 07/22/17 Unknown History ED Physical Exam - General Limitations: Altered Mental Status, Physical Limitation General appearance: lethargic, in distress, cachectic - Head Head exam: Present: atraumatic, normocephalic - Eye Eye exam: Present: normal appearance, PERRL Pupils: Present: normal accommodation - ENT ENT exam: Present: mucous membranes dry - Neck Neck exam: Present: normal inspection - Respiratory Respiratory exam: Present: respiratory distress, rales, rhonchi, accessory muscle use, decreased breath sounds - Cardiovascular Cardiovascular Exam: Present: regular rate, normal rhythm - GI/Abdominal GI/Abdominal exam: Present: soft, normal bowel sounds - Rectal Rectal exam: Present: other (pressure sore noted on coccyx) - Back Exam Back exam: Present: normal inspection - Neurological Exam Neurological exam: Present: altered (patient minimally responsive. open eyes to verbal stimuli. Verbal response incomprehensible sounds. ) - Skin Skin exam: Present: warm, dry, other (pressure sore noted on coccyx with small open area. ) ED Course Vital Signs 09/11/17 09/11/17 18:07 19:11 Temperature 99.9 F H Pulse Rate 105 H 113 H Respiratory 20 12 Rate Blood Pressure 105/50 Blood Pressure 171/82 [Right] O2 Sat by Pulse 94 94 Oximetry ED Medical Decision Making - Lab Data Result diagrams: 09/11/17 21:01 09/11/17 21:15 - Radiology Data Radiology results: report reviewed Positive bilateral pneumonia - Medical Decision Making After further discussion with daughter of intervention testing we're going to do. Daughter states she wants to minimal done and just wants patient admitted for comfort measures and to treat her UTI. Discussed all test with daughter and daughter asked that most of them be canceled including EKG and SCANS. Daughter states she only wants basic labs including CBC and CMP. - Differential Diagnosis uti. pna. fever. Critical care attestation.: If time is entered above; I have spent that time in minutes in the direct care of this critically ill patient, excluding procedure time. ED Disposition Clinical Impression: UTI (urinary tract infection), Shortness of breath, Altered mental status, Pneumonia, Fever, Hypoxia Disposition: DC-09 OP ADMIT IP TO THIS HOSP Is pt being admited?: Yes Does the pt Need Aspirin: No Condition: Critical Time of Disposition: 23:02
[2017-09-11 21:33] LABS: Basophils % (Auto) 0.2 % (0.0-1.8); Hematocrit 45.1 % (30.3-42.9); Hemoglobin 14.9 gm/dl (10.1-14.3); Mean Corpuscular HGB Conc 33 % (30-34); Mean Corpuscular Hemoglobin 35 pg (28-32); Mean Corpuscular Volume 106 fl (79-97); Platelet Count 192 K/mm3 (140-440); Red Blood Count 4.26 M/mm3 (3.65-5.03); Red Cell Distribution Width 13.1 % (13.2-15.2); White Blood Count 13.6 K/mm3 (4.5-11.0)
[2017-09-11 21:58] LABS: Creatine Kinase 445 units/L (30-135)
[2017-09-11 22:12] LABS: Alanine Aminotransferase 20 units/L (7-56); Albumin 3.2 g/dL (3.9-5); Alkaline Phosphatase 116 units/L (35-129); Chloride 100.4 mmol/L (98-107); Cholesterol 140 mg/dL (50-199); Potassium 4.6 mmol/L (3.6-5.0); Sodium 146 mmol/L (137-145)
--- NOTE | 2017-09-11 22:16 | XRay Report ---
FINAL REPORT PROCEDURE: XR CHEST 1V AP TECHNIQUE: Chest radiograph anteroposterior view. CPT 54391 HISTORY: sob, hypoxia COMPARISON: No prior studies are available for comparison. FINDINGS: Heart: Mild cardiomegaly is noted. Mediastinum/Vessels: Unremarkable. Lungs/Pleural space: Inhomogeneous densities are noted involving bilateral lower lungs. There is moderate elevation of left hemidiaphragm. There is no obvious evidence of pleural effusions.. Bony thorax: No acute osseous abnormality. Life support devices: None. IMPRESSION: Inhomogeneous densities involving bilateral lower lungs are suspicious for pneumonia. A two view chest study is recommended whenever the patient's condition permits..
[2017-09-11 22:24] LABS: Albumin/Globulin Ratio 1.3 %; Anion Gap 22 mmol/L; BUN/Creatinine Ratio 47; Blood Urea Nitrogen 33 mg/dL (7-17); Calcium 9.4 mg/dL (8.4-10.2); Carbon Dioxide 28 mmol/L (22-30); Glucose 157 mg/dL (65-100); HDL Cholesterol 40 mg/dL (40-59); LDL Cholesterol,Direct 73 mg/dL (50-130); Total Protein 5.7 g/dL (6.3-8.2); Triglycerides 136 mg/dL (2-149)
[2017-09-12] MEDS ORDERED: ZOSYN/NS 2.25 GM/50ML 2.25 GM/50 ML BAG IV SCH
[2017-09-12] MEDS ORDERED: TYLENOL PO PRN (00:50)
[2017-09-12] MEDS ORDERED: HALOPERIDOL 0.5 MG PO PRN (02:22)
[2017-09-12] MEDS ORDERED: NORCO 7.5/325 PO PRN (02:22)
[2017-09-12] MEDS ORDERED: ATIVAN PO PRN (02:22)
[2017-09-12] MEDS ORDERED: DILAUDID IV ONE (02:36)
[2017-09-12] MEDS ORDERED: HALDOL PO PRN (02:44)
[2017-09-12] MEDS: D5/0.45NS 1,000 ML IV SCH (02:49)
--- NOTE | 2017-09-12 04:32 | History and Physical Report ---
CHIEF COMPLAINT: Weakness. Other complaints include pressure sores in the buttocks area. HISTORY OF PRESENT ILLNESS: The patient is an 81-year-old female, who is on hospice, was brought into the Emergency Room with change in mental status and also because of bedsores in the [facility] area. There was also a history of fever and weakness. The patient's daughter was noted to have say that the patient has been weak for quite some time and was having difficulty in breathing going on for one day and the patient has not been eating for quite some time and is getting treated currently urinary tract infection with antibiotics. There is no history of chest pain. No history of nausea or vomiting. Family on arrival said that they wanted only comfort measure on the patient, not any aggressive. The patient's family said that document in the hospital shows that the patient is do not resuscitate. PAST MEDICAL HISTORY: Pertinent for hypertension, cerebrovascular accident, congestive heart failure, gastroesophageal reflux disease, seizure disorder, kidney stones, major depression, elevated cholesterol, and trigeminal neuralgia. PAST SURGICAL HISTORY: Pertinent for cholecystectomy and hysterectomy. FAMILY HISTORY: Noncontributory. SOCIAL HISTORY: The patient is on hospice. Does not smoke, does not drink, and does not use illicit. MEDICATIONS: The patient is on Cozaar 100 mg by mouth daily, Dilantin 100 mg by mouth every 8 hours, Crestor 5 mg by mouth at bedtime, Maxzide 25 one tablet by mouth daily, Tenormin 50 mg by mouth daily; dicyclomine, Bentyl 20 mg by mouth 4 times daily; Aricept 10 mg by mouth daily, Prozac 40 mg by mouth daily, Xalatan 0.005% one drop to the affected area at bedtime, Ativan 0.5 mg by mouth 4 times daily; Lasix tablet, dose and frequency unknown; and potassium chloride, dose unknown and frequency 1 by mouth daily. ALLERGIES: There are no known drug allergies. REVIEW OF SYSTEMS: CONSTITUTIONAL: There is fever with no chills, no diaphoresis. HEENT: There is no headache or sore throat. CARDIOVASCULAR: There is no chest pain or orthopnea. RESPIRATORY: There is shortness of breath with no cough. GASTROINTESTINAL: He has poor oral intake with no nausea, no vomiting, no abdominal pain, diarrhea or constipation. NEUROLOGICAL: Generalized weakness noted. Change in mental status noted. MUSCULOSKELETAL: There is no joint pain or swelling. DERMATOLOGICAL: There is no skin rash or itching. GENITOURINARY: There is dysuria, hematuria or flank pain. Rest of system review is normal. PHYSICAL EXAMINATION: GENERAL: On exam, the patient was found to be lethargic, noncommunicative and responsive to only noxious stimuli, but not in acute distress. VITAL SIGNS: Vital signs show temperature of 99.8 degrees Fahrenheit, pulse of 110, respiration 18, blood pressure 162/76, and O2 sat of 100% on oxygen. HEENT: Showed pupils to be equal, round and reactive to light. Eyeball looks sunken. Oral mucosa appears dry. NECK: Supple with no JVD or carotid bruit. CARDIOVASCULAR: Showed normal first and second heart sounds with gallops or murmur. RESPIRATORY SYSTEM: Show reduced air entry on both sides of the lung with scattered bilateral crackles. GASTROINTESTINAL SYSTEM: Show abdomen to be full, soft, nontender with no organomegaly or rigidity. NEUROLOGIC: Exam shows the patient to be lethargic with no focal neurological deficit. MUSCULOSKELETAL SYSTEM: Show no joint swelling or tenderness. DERMATOLOGICAL SYSTEM: Show no skin rash. GENITOURINARY: Showing no costovertebral angle tenderness. PERTINENT LABORATORY DATA AND IMAGING STUDIES: The patient had chest x-ray done that shows bilateral opacities suspicious for pneumonia according to the radiologist. The patient's CBC showed elevated white count of 13,600 with high hemoglobin of 14.9, high hematocrit of 45.1 and high MCV of 106 with CBC differential showing elevated monocyte count of 7.4%. The patient's CBC differential shows a high neutrophil count of 90%. The patient's D-dimer was high with a value of 1545.[address] was done because the family did not want to get CAT scan done on the patient because they want only comfort measure. The patient's chemistry showed elevated sodium level of 146, with normal potassium, normal chloride and elevated BUN of 33 and normal creatinine with normal GFR of greater than 60. Cardiac enzymes show a high total CPK of 445 with elevated troponin level of 0.084 and elevated brain natriuretic peptide of 4636 with low albumin level of 3.2. DIAGNOSES: 1. Bilateral pneumonia. 2. Hypernatremia. 3. Altered mental status. PLAN: The patient will be admitted to medical floor and will be placed on pureed diet. Per family's request, the patient will have basic metabolic panel done in the morning and will be on Tylenol 650 mg by mouth every 4 hours for fever, headache and will be on IV D5 half normal at 75 mL an hour. The patient will be on Zosyn 3.375 grams every 8 hours IV and will be on oxygen via nasal cannula at 2 liters per minute. The patient's home medications will be reconciled and started as shown in the medication reconciliation section. JOB# [id number] OCN/NTS
[2017-09-12] MEDS: MS CONTIN ER PO SCH ×3 (05:38→23:15)
[2017-09-12] MEDS ORDERED: ZOSYN/NS 3.375GM/50ML 3.375 GM/50 ML BAG IV SCH ×2 (06:00)
[2017-09-12 08:05] LABS: Anion Gap 20 mmol/L; BUN/Creatinine Ratio 50; Blood Urea Nitrogen 35 mg/dL (7-17); Calcium 9.2 mg/dL (8.4-10.2); Carbon Dioxide 27 mmol/L (22-30); Chloride 101.2 mmol/L (98-107); Glucose 214 mg/dL (65-100); Potassium 4.3 mmol/L (3.6-5.0); Sodium 144 mmol/L (137-145)
[2017-09-12] MEDS ORDERED: NON-FORMULARY (Fluoxetine Hcl [Prozac] 20 MG) PO SCH (10:00)
[2017-09-12] MEDS ORDERED: NON-FORMULARY (Morphine Sulfate [Morphine Sulfate Er] 30 MG) PO SCH (10:00)
[2017-09-12] MEDS: DILANTIN PO SCH ×3 (10:20→20:14)
[2017-09-12] MEDS: PROzac PO SCH (10:32)
[2017-09-12] MEDS: ZOSYN/NS 2.25 GM/50ML 2.25 GM/50 ML BAG IV SCH ×2 (13:18→18:21)
--- NOTE | 2017-09-12 17:09 | Progress Note ---
Assessment and Plan Assessment and plan Urinary tract infection: On IV Zosyn. Altered mental status-likely secondary to UTI. Pneumonia: On IV Zosyn. Vanc and Levaquin Hypoxia: Oxygen via NC to keep O2 sat at > 94 Subjective Date of service: 09/12/17 Principal diagnosis: UTI Interval history: Not verbally responsive. Objective - Constitutional Vitals: Vital Signs - 12hr 09/12/17 09/12/17 09/12/17 05:38 05:56 06:00 Temperature Pulse Rate 105 H Pulse Rate [ 106 H From Monitor] Respiratory 20 20 20 Rate Blood Pressure Blood Pressure 148/82 [Right] O2 Sat by Pulse 100 99 Oximetry 09/12/17 09/12/17 09/12/17 08:07 09:53 10:11 Temperature 97.7 F 98.4 F Pulse Rate 114 H 55 L Pulse Rate [ From Monitor] Respiratory 16 20 Rate Blood Pressure 170/78 Blood Pressure 148/92 [Right] O2 Sat by Pulse 90 94 94 Oximetry 09/12/17 09/12/17 09/12/17 11:03 12:04 12:47 Temperature 99.3 F Pulse Rate 114 H 114 H Pulse Rate [ From Monitor] Respiratory 20 20 16 Rate Blood Pressure 164/91 Blood Pressure [Right] O2 Sat by Pulse 93 Oximetry 09/12/17 16:01 Temperature 98.3 F Pulse Rate 113 H Pulse Rate [ From Monitor] Respiratory 20 Rate Blood Pressure 162/80 Blood Pressure [Right] O2 Sat by Pulse 92 Oximetry - EENT Eyes: PERRL ENT: hearing intact - Neck Neck: supple, no masses or JVD, no carotid bruits - Respiratory Respiratory: bilateral: CTA - Breasts Breasts: deferred - Cardiovascular Rhythm: regular Heart Sounds: Present: S1 & S2. Absent: gallop, systolic murmur, diastolic murmur Extremities: no ischemia, pulses intact, pulses symmetrical, No edema - Gastrointestinal General gastrointestinal: Present: soft, non-tender, non-distended Rectal Exam: deferred - Integumentary Integumentary: clear, warm, dry - Musculoskeletal Musculoskeletal: strength equal bilaterally - Neurologic Neurologic: moves all extremities - Psychiatric Psychiatric: cooperative - Labs CBC & Chem 7: 09/11/17 21:01 09/12/17 07:00 Labs: Abnormal lab results 09/11/17 09/11/17 09/11/17 Range/Units 21:01 21:15 21:15 WBC 13.6 H (4.5-11.0) K/mm3 Hgb 14.9 H (10.1-14.3) gm/dl Hct 45.1 H (30.3-42.9) % MCV 106 H (79-97) fl MCH 35 H (28-32) pg RDW 13.1 L (13.2-15.2) % Lymph % (Auto) 2.4 L (13.4-35.0) % [place] % (Auto) 7.4 H (0.0-7.3) % Lymph # 0.3 L (1.2-5.4) K/mm3 [place] # 1.0 H (0.0-0.8) K/mm3 Seg Neutrophils % 90.0 H (40.0-70.0) % Seg Neutrophils # 12.3 H (1.8-7.7) K/mm3 D-Dimer 1545.55 H (0-234) ng/mlDDU Sodium 146 H (137-145) mmol/L BUN 33 H (7-17) mg/dL Glucose 157 H (65-100) mg/dL Total Creatine Kinase 445 H (30-135) units/L Troponin T 0.084 H (0.00-0.029) ng/mL NT-Pro-B Natriuret Pep 4636 H (0-900) pg/mL Total Protein 5.7 L (6.3-8.2) g/dL Albumin 3.2 L (3.9-5) g/dL 09/12/17 Range/Units 07:00 WBC (4.5-11.0) K/mm3 Hgb (10.1-14.3) gm/dl Hct (30.3-42.9) % MCV (79-97) fl MCH (28-32) pg RDW (13.2-15.2) % Lymph % (Auto) (13.4-35.0) % [place] % (Auto) (0.0-7.3) % Lymph # (1.2-5.4) K/mm3 [place] # (0.0-0.8) K/mm3 Seg Neutrophils % (40.0-70.0) % Seg Neutrophils # (1.8-7.7) K/mm3 D-Dimer (0-234) ng/mlDDU Sodium (137-145) mmol/L BUN 35 H (7-17) mg/dL Glucose 214 H (65-100) mg/dL Total Creatine Kinase (30-135) units/L Troponin T (0.00-0.029) ng/mL NT-Pro-B Natriuret Pep (0-900) pg/mL Total Protein (6.3-8.2) g/dL Albumin (3.9-5) g/dL
--- NOTE | 2017-09-12 22:35 | History and Physical Report ---
History of Present Illness Date of admission: 09/12/17 00:47 Medications and Allergies Allergies Allergy/AdvReac Type Severity Reaction Status Date / Time No Known Allergies Allergy Unverified 06/06/15 09:02 Home Medications Medication Instructions Recorded Confirmed Last Taken Type FLUoxetine HCL [PROzac] 20 mg PO QDAY 05/19/17 09/11/17 05/18/17 History HYDROcodone/APAP 7.5-325 [[place] 1 each PO Q4H PRN 09/11/17 09/11/17 Unknown History 7.5/325] Haloperidol 0.5 mg PO DAILY PRN 09/11/17 09/11/17 Unknown History LORazepam [Ativan] 1 mg PO Q4H PRN 09/11/17 09/11/17 Unknown History Levofloxacin [Levaquin TAB] 500 mg PO QDAY 09/11/17 09/11/17 Unknown History Morphine Sulfate [Morphine Sulfate 30 mg PO BID 09/11/17 09/11/17 Unknown History ER] Ondansetron [Zofran TAB] 4 mg PO Q4H PRN 09/11/17 09/11/17 Unknown History Promethazine [Phenergan TAB] 25 mg PO Q4H PRN 09/11/17 09/12/17 Unknown History QUEtiapine [SEROquel] 100 mg PO QHS 09/11/17 09/11/17 Unknown History Phenytoin (25 mg/ml) [Dilantin] 125 mg PO TID 09/12/17 09/12/17 Unknown History Active Meds: Active Medications Acetaminophen (Tylenol) 650 mg PO Q4H PRN PRN Reason: MILD PAIN 1-3/Fever/Headache Acetaminophen/Hydrocodone Bitart ([place] 7.5/325) 1 each PO Q4H PRN PRN Reason: Pain, Moderate (4-6) Fluoxetine HCl (Prozac) 20 mg PO QDAY [facility]IC[facility] Last Admin: 09/12/17 10:32 Dose: 20 mg Haloperidol (Haldol) 0.5 mg PO DAILY PRN PRN Reason: Agitation Dextrose/Sodium Chloride (D5/0.45ns) 1,000 mls @ 75 mls/hr IV DIRECT ALICIA Last Admin: 09/12/17 02:49 Dose: 75 mls/hr Piperacillin Sod/Tazobactam Sod (Zosyn/Ns 2.25 Gm/50ml) 2.25 gm in 50 mls @ 100 mls/hr IV Q6HR [facility] Last Admin: 09/12/17 18:21 Dose: 100 mls/hr Lorazepam (Ativan) 1 mg PO Q4H PRN PRN Reason: Agitation Morphine Sulfate (Ms Contin Er) 30 mg PO BID [facility] Last Admin: 09/12/17 10:35 Dose: 30 mg Phenytoin (Dilantin) 125 mg PO TID [facility] Last Admin: 09/12/17 16:48 Dose: 125 mg Quetiapine Fumarate (Seroquel) 100 mg PO QHS [facility] Exam - Constitutional Vitals: Temp Pulse Resp BP Pulse Ox 98.3 F 108 H 20 162/80 98 09/12/17 16:01 09/12/17 20:00 09/12/17 20:00 09/12/17 16:01 09/12/17 20:22 Results - Labs CBC & Chem 7: 09/11/17 21:01 09/12/17 07:00 Labs: Abnormal lab results 09/12/17 Range/Units 07:00 BUN 35 H (7-17) mg/dL Glucose 214 H (65-100) mg/dL
[2017-09-12] MEDS ORDERED: VANCOMYCIN PHARMACY TO DOSE IV SCH (23:00)
[2017-09-12] MEDS ORDERED: VANCOMYCIN 750 MG in NACL 0.9% 250ML 250 ML IV ONE (23:30)
[2017-09-13] MEDS: COREG PO SCH ×3 (00:16→23:16)
[2017-09-13] MEDS: ZOSYN/NS 2.25 GM/50ML 2.25 GM/50 ML BAG IV SCH ×4 (00:25→18:05)
[2017-09-13 07:05] LABS: Basophils % (Auto) 0.1 % (0.0-1.8); Eosinophils % (Auto) 0.1 % (0.0-4.3); Hematocrit 42.6 % (30.3-42.9); Hemoglobin 13.9 gm/dl (10.1-14.3); Mean Corpuscular HGB Conc 33 % (30-34); Mean Corpuscular Hemoglobin 35 pg (28-32); Mean Corpuscular Volume 106 fl (79-97); Platelet Count 219 K/mm3 (140-440); Red Blood Count 4.01 M/mm3 (3.65-5.03); Red Cell Distribution Width 13.1 % (13.2-15.2); White Blood Count 14.2 K/mm3 (4.5-11.0)
[2017-09-13 07:26] LABS: Alanine Aminotransferase 23 units/L (7-56); Albumin 2.8 g/dL (3.9-5); Albumin/Globulin Ratio 0.9 %; Alkaline Phosphatase 95 units/L (35-129); Anion Gap 18 mmol/L; BUN/Creatinine Ratio 50; Blood Urea Nitrogen 25 mg/dL (7-17); Calcium 9.2 mg/dL (8.4-10.2); Carbon Dioxide 28 mmol/L (22-30); Chloride 105.5 mmol/L (98-107); Glucose 172 mg/dL (65-100); Potassium 3.5 mmol/L (3.6-5.0); Sodium 148 mmol/L (137-145); Total Protein 5.8 g/dL (6.3-8.2)
[2017-09-13] MEDS: DILANTIN PO SCH ×3 (09:50→23:16)
[2017-09-13] MEDS: LASIX IV SCH (09:50)
[2017-09-13] MEDS ORDERED: VANCOMYCIN VIAL IV SCH (10:00)
[2017-09-13] MEDS: D5/0.45NS 1,000 ML IV SCH ×2 (11:05→23:50)
[2017-09-13] MEDS ORDERED: CEPHULAC PO ONE (12:02)
[2017-09-13] MEDS ORDERED: APRESOLINE IV PRN (13:07)
[2017-09-13] MEDS: PROzac PO SCH (13:08)
[2017-09-13] MEDS: MS CONTIN ER PO SCH ×2 (13:08→23:16)
[2017-09-13] MEDS: ZESTRIL PO SCH (13:08)
--- NOTE | 2017-09-13 13:24 | Consultation ---
History of Present Illness Consult date: 09/13/17 Consult reason: shortness of breath History of present illness: The patient is an 81-year-old woman who is admitted to the hospital with chief complaint of altered mental status. Cardiology consultation was requested for "CHF". On further evaluation, the patient appears to be breathing comfortably on bed rest on room air. There is no lower extremity edema. She remains lethargic and noncommunicative. Her chest x-ray was reviewed by me. She has a large area of right lower lobe consolidation. There is no heart failure or edema on chest x-ray. ECG is pending. The patient had an echocardiogram 2 months ago in this hospital, which reported normal left ventricle systolic function, ejection fraction 55-60% . Past History Past Medical History: COPD, hypertension Medications and Allergies Allergies Allergy/AdvReac Type Severity Reaction Status Date / Time No Known Allergies Allergy Unverified 06/06/15 09:02 Home Medications Medication Instructions Recorded Confirmed Last Taken Type FLUoxetine HCL [PROzac] 20 mg PO QDAY 05/19/17 09/11/17 05/18/17 History HYDROcodone/APAP 7.5-325 [[place] 1 each PO Q4H PRN 09/11/17 09/11/17 Unknown History 7.5/325] Haloperidol 0.5 mg PO DAILY PRN 09/11/17 09/11/17 Unknown History LORazepam [Ativan] 1 mg PO Q4H PRN 09/11/17 09/11/17 Unknown History Levofloxacin [Levaquin TAB] 500 mg PO QDAY 09/11/17 09/11/17 Unknown History Morphine Sulfate [Morphine Sulfate 30 mg PO BID 09/11/17 09/11/17 Unknown History ER] Ondansetron [Zofran TAB] 4 mg PO Q4H PRN 09/11/17 09/11/17 Unknown History Promethazine [Phenergan TAB] 25 mg PO Q4H PRN 09/11/17 09/12/17 Unknown History QUEtiapine [SEROquel] 100 mg PO QHS 09/11/17 09/11/17 Unknown History Phenytoin (25 mg/ml) [Dilantin] 125 mg PO TID 09/12/17 09/12/17 Unknown History Active Meds: Active Medications Acetaminophen (Tylenol) 650 mg PO Q4H PRN PRN Reason: MILD PAIN 1-3/Fever/Headache Acetaminophen/Hydrocodone Bitart ([place] 7.5/325) 1 each PO Q4H PRN PRN Reason: Pain, Moderate (4-6) Carvedilol (Coreg) 6.25 mg PO BID [facility] Last Admin: 09/13/17 12:23 Dose: Not Given Fluoxetine HCl (Prozac) 20 mg PO QDAY [facility] Last Admin: 09/13/17 13:08 Dose: Not Given Furosemide (Lasix) 20 mg IV QDAY [facility] Last Admin: 09/13/17 09:50 Dose: 20 mg Haloperidol (Haldol) 0.5 mg PO DAILY PRN PRN Reason: Agitation Hydralazine HCl (Apresoline) 10 mg IV Q4HR PRN PRN Reason: Hypertension Dextrose/Sodium Chloride (D5/0.45ns) 1,000 mls @ 75 mls/hr IV DIRECT [facility] Last Admin: 09/12/17 02:49 Dose: 75 mls/hr Piperacillin Sod/Tazobactam Sod (Zosyn/Ns 2.25 Gm/50ml) 2.25 gm in 50 mls @ 100 mls/hr IV Q6HR [facility] Last Admin: 09/13/17 05:53 Dose: 100 mls/hr Vancomycin HCl 500 mg/ Sodium (Chloride) 100 mls @ 66.667 mls/hr IV Q24HR@2200 [facility] Potassium Chloride (Kcl 10meq/100ml) 10 meq in 100 mls @ 100 mls/hr IV Q1H [facility] Stop: 09/13/17 16:59 Lactulose (Cephulac) 20 gm PO Q6H PRN PRN Reason: Constipation Lisinopril (Zestril) 2.5 mg PO QDAY [facility] Last Admin: 09/13/17 13:08 Dose: Not Given Lorazepam (Ativan) 1 mg PO Q4H PRN PRN Reason: Agitation Morphine Sulfate (Ms Contin Er) 30 mg PO BID [facility] Last Admin: 09/13/17 13:08 Dose: Not Given Phenytoin (Dilantin) 125 mg PO TID [facility] Last Admin: 09/13/17 09:50 Dose: Not Given Quetiapine Fumarate (Seroquel) 100 mg PO QHS [facility] Last Admin: 09/12/17 23:16 Dose: Not Given Vancomycin HCl (Vancomycin Pharmacy To Dose) 1 each IV PKCONSULT ALICIA PRN Reason: Protocol Review of Systems ROS unobtainable: due to mental status Physical Examination Vital Signs Pulse Resp BP Pulse Ox 105 H 20 105/50 94 09/11/17 18:07 09/11/17 18:07 09/11/17 18:07 09/11/17 18:07 General appearance: no acute distress, cachectic, other (noncommunicative) HEENT: Positive: PERRL Neck: Positive: neck supple Cardiac: Positive: Reg Rate and Rhythm Lungs: Positive: Decreased Breath Sounds Neuro: Positive: Weakness Abdomen: Positive: Soft Female genitourinary: deferred Skin: Positive: Clear Extremities: Absent: edema Results 09/13/17 05:53 09/13/17 05:53 Cardiac Enzymes 09/13/17 Range/Units 05:53 AST 44 H (5-40) units/L CBC 09/13/17 Range/Units 05:53 WBC 14.2 H (4.5-11.0) K/mm3 RBC 4.01 (3.65-5.03) M/mm3 Hgb 13.9 (10.1-14.3) gm/dl Hct 42.6 (30.3-42.9) % Plt Count 219 (140-440) K/mm3 Lymph # 1.0 L (1.2-5.4) K/mm3 [place] # 1.5 H (0.0-0.8) K/mm3 Eos # 0.0 (0.0-0.4) K/mm3 Baso # 0.0 (0.0-0.1) K/mm3 Comprehensive Metabolic Panel 09/13/17 Range/Units 05:53 Sodium 148 H (137-145) mmol/L Potassium 3.5 L (3.6-5.0) mmol/L Chloride 105.5 (98-107) mmol/L Carbon Dioxide 28 (22-30) mmol/L BUN 25 H (7-17) mg/dL Creatinine 0.5 L (0.7-1.2) mg/dL Glucose 172 H (65-100) mg/dL Calcium 9.2 (8.4-10.2) mg/dL AST 44 H (5-40) units/L ALT 23 (7-56) units/L Alkaline Phosphatase 95 (35-129) units/L Total Protein 5.8 L (6.3-8.2) g/dL Albumin 2.8 L (3.9-5) g/dL Assessment and Plan - Patient Problems (1) Pneumonia Current Visit: Yes Status: Acute Plan to address problem: Patient presents with altered mental status, fever, elevated white count and the right lower lobe pneumonia. There is no clinical or chest x-ray evidence of heart failure. Recent echocardiogram documented normal left ventricle systolic function. No further cardiac workup is indicated. (2) Altered mental status Current Visit: Yes Status: Acute Plan to address problem: Medical service evaluation and management of altered mental status and right lower lobe pneumonia.
--- NOTE | 2017-09-13 13:40 | Cat Scan Report ---
CT HEAD WITHOUT CONTRAST: HISTORY: Altered mental status. TECHNIQUE: Sequential CT images without contrast. FINDINGS: Severely limited exam with excessive motion artifact. Non-contrast CT of the head is submitted demonstrating central and cortical atrophy. There are low density changes in the periventricular white matter. There is no intracranial hemorrhage or mass effect. There is no shift of the midline. 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 Basilar cisterns are patent. The included portions of the paranasal sinuses and mastoid air cells are clear. IMPRESSION: Senescent changes as noted. No acute intracranial process. No significant change since 07/22/17.
[2017-09-13] MEDS: KCL 10MEQ/100ML 10 MEQ/100 ML BAG IV SCH ×4 (15:06→18:00)
--- NOTE | 2017-09-13 15:10 | Progress Note ---
<CHONCAM E - Last Filed: 09/13/17 21:53> Assessment and Plan Assessment and plan: I saw and evaluated the patient. I agree with the findings and the plan of care as documented in the Physician Perishable Fruit Inspector's~note, with the following corrections and additions. ID consult Aspiration precautions patient is a full code per living will Replace Electrolytes Moderate to Severe Protein calorie Malnutrition Catering Truck Driver consultation Type 2 MO- possibly due to sepsis, no mention of chest pain on admission. will recheck troponin. Prior echo in May reviewed. Family at bedside. Case discussed with them Hospitalist Physical - Physical exam Narrative exam: Lathargic, non reponsive except for noxious stimuli Lungs clear Heart s1s2 regular Neruo. drowsy, non communicative. - Constitutional Vitals: Temp Pulse Resp BP Pulse Ox 98.7 F 111 H 24 173/84 94 09/13/17 17:07 09/13/17 17:07 09/13/17 17:07 09/13/17 17:07 09/13/17 17:07 General appearance: Present: other Results - Labs CBC & Chem 7: 09/13/17 05:53 09/13/17 05:53 Labs: Laboratory Last Values WBC 14.2 K/mm3 (4.5-11.0) H 09/13/17 05:53 RBC 4.01 M/mm3 (3.65-5.03) 09/13/17 05:53 Hgb 13.9 gm/dl (10.1-14.3) 09/13/17 05:53 Hct 42.6 % (30.3-42.9) 09/13/17 05:53 MCV 106 fl (79-97) H 09/13/17 05:53 MCH 35 pg (28-32) H 09/13/17 05:53 MCHC 33 % (30-34) 09/13/17 05:53 RDW 13.1 % (13.2-15.2) L 09/13/17 05:53 Plt Count 219 K/mm3 (140-440) 09/13/17 05:53 Lymph % (Auto) 7.1 % (13.4-35.0) L 09/13/17 05:53 [place] % (Auto) 10.5 % (0.0-7.3) H 09/13/17 05:53 Eos % (Auto) 0.1 % (0.0-4.3) 09/13/17 05:53 Baso % (Auto) 0.1 % (0.0-1.8) 09/13/17 05:53 Lymph # 1.0 K/mm3 (1.2-5.4) L 09/13/17 05:53 [place] # 1.5 K/mm3 (0.0-0.8) H 09/13/17 05:53 Eos # 0.0 K/mm3 (0.0-0.4) 09/13/17 05:53 Baso # 0.0 K/mm3 (0.0-0.1) 09/13/17 05:53 Seg Neutrophils % 82.2 % (40.0-70.0) H 09/13/17 05:53 Seg Neutrophils # 11.7 K/mm3 (1.8-7.7) H 09/13/17 05:53 D-Dimer 1545.55 ng/mlDDU (0-234) H 09/11/17 21:15 Sodium 148 mmol/L (137-145) H 09/13/17 05:53 Potassium 3.5 mmol/L (3.6-5.0) L 09/13/17 05:53 Chloride 105.5 mmol/L (98-107) 09/13/17 05:53 Carbon Dioxide 28 mmol/L (22-30) 09/13/17 05:53 Anion Gap 18 mmol/L 09/13/17 05:53 BUN 25 mg/dL (7-17) H 09/13/17 05:53 Creatinine 0.5 mg/dL (0.7-1.2) L 09/13/17 05:53 Estimated GFR > 60 ml/min 09/13/17 05:53 BUN/Creatinine Ratio 50 % 09/13/17 05:53 Glucose 172 mg/dL (65-100) H 09/13/17 05:53 Hemoglobin A1c 5.2 % (4-6) 09/13/17 16:26 Lactic Acid 1.50 mmol/L (0.7-2.0) 09/13/17 16:26 Calcium 9.2 mg/dL (8.4-10.2) 09/13/17 05:53 Phosphorus 1.40 mg/dL (2.5-4.5) L 09/13/17 05:53 Magnesium 2.00 mg/dL (1.7-2.3) 09/13/17 05:53 Total Bilirubin 0.50 mg/dL (0.1-1.2) 09/13/17 05:53 AST 44 units/L (5-40) H 09/13/17 05:53 ALT 23 units/L (7-56) 09/13/17 05:53 Alkaline Phosphatase 95 units/L (35-129) 09/13/17 05:53 Total Creatine Kinase 445 units/L (30-135) H 09/11/17 21:15 CK-MB (CK-2) 4.0 ng/mL (0.0-4.0) 09/11/17 21:15 CK-MB (CK-2) Rel Index 0.8 (0-4) 09/11/17 21:15 Troponin T 0.084 ng/mL (0.00-0.029) H 09/11/17 21:15 NT-Pro-B Natriuret Pep 4636 pg/mL (0-900) H 09/11/17 21:15 Total Protein 5.8 g/dL (6.3-8.2) L 09/13/17 05:53 Albumin 2.8 g/dL (3.9-5) L 09/13/17 05:53 Albumin/Globulin Ratio 0.9 % 09/13/17 05:53 Triglycerides 136 mg/dL (2-149) 09/11/17 21:15 Cholesterol 140 mg/dL (50-199) 09/11/17 21:15 LDL Cholesterol Direct 73 mg/dL (50-130) 09/11/17 21:15 HDL Cholesterol 40 mg/dL (40-59) 09/11/17 21:15 Cholesterol/HDL Ratio 3.50 % 09/11/17 21:15 Urine Color Yellow (Yellow) 09/13/17 18:50 Urine Turbidity Clear (Clear) 09/13/17 18:50 Urine pH 6.0 (5.0-7.0) 09/13/17 18:50 Ur Specific [place] 1.015 (1.003-1.030) 09/13/17 18:50 Urine Protein <15 mg/dl mg/dL (Negative) 09/13/17 18:50 Urine Glucose (UA) 50 mg/dL (Negative) 09/13/17 18:50 Urine Ketones Neg mg/dL (Negative) 09/13/17 18:50 Urine Blood Sm (Negative) 09/13/17 18:50 Urine Nitrite Neg (Negative) 09/13/17 18:50 Urine Bilirubin Neg (Negative) 09/13/17 18:50 Urine Urobilinogen < 2.0 mg/dL (<2.0) 09/13/17 18:50 Ur Leukocyte Esterase Neg (Negative) 09/13/17 18:50 - Imaging and Cardiology CT Scan - head: image reviewed (no acute pathology) <VALARIE COHEN - Last Filed: 09/15/17 08:35> Assessment and Plan Assessment and plan: 81-year-old female that is on hospice and a DO NOT RESUSCITATE brought to the ER for decreased consciousness and fever and a bedsore on coccyx. Patient lethargic and minimally responsive. Per daughter, patient has been having weakness and difficulties in breathing and shortness of breath for 1 day. Case and care discussed with daughter. Daughter stated that the patient is not to be intubated but all other interventions can be done. Daughter states the patient is currently on antibiotics for UTI. Assessment and Plan Sepsis likely due to UTI Order Urine culture, and UA Continue IV Zosyn, Hyperglycemia Obtain A1c, SSI Elevated Javier: trend. Cardiology consult Altered mental status-likely secondary to UTI. CT ordered Pneumonia On IV Zosyn. Vanc and Levaquin Hypoxia Oxygen via NC to keep O2 sat at > 94 Hypokalemia Replenished with KCL DVT Prophylaxis SCDs History Interval history: Patient lethargic, only mumbles to questions asked Hospitalist Physical - Constitutional Vitals: Temp Pulse Resp BP Pulse Ox 100.2 F H 112 H 18 184/88 100 09/13/17 07:17 09/13/17 07:17 09/13/17 07:17 09/13/17 07:17 09/13/17 10:00 General appearance: Present: no acute distress, cachectic, other ( noncommunicative) - EENT Eyes: Present: PERRL, EOM intact ENT: hearing intact, clear oral mucosa - Neck Neck: Present: supple, normal ROM - Respiratory Respiratory effort: normal Respiratory: bilateral: CTA - Cardiovascular Rhythm: regular Heart Sounds: Present: S1 & S2 - Extremities Extremities: no ischemia, No edema Peripheral Pulses: within normal limits - Abdominal General gastrointestinal: soft, non-tender - Integumentary Integumentary: Present: clear, warm, dry - Psychiatric Psychiatric: appropriate mood/affect, cooperative - Neurologic Neurologic: CNII-XII intact, moves all extremities - Allied Health Allied health notes reviewed: nursing Results - Labs CBC & Chem 7: 09/15/17 05:33 09/15/17 05:33 Labs: Laboratory Last Values WBC 14.2 K/mm3 (4.5-11.0) H 09/13/17 05:53 RBC 4.01 M/mm3 (3.65-5.03) 09/13/17 05:53 Hgb 13.9 gm/dl (10.1-14.3) 09/13/17 05:53 Hct 42.6 % (30.3-42.9) 09/13/17 05:53 MCV 106 fl (79-97) H 09/13/17 05:53 MCH 35 pg (28-32) H 09/13/17 05:53 MCHC 33 % (30-34) 09/13/17 05:53 RDW 13.1 % (13.2-15.2) L 09/13/17 05:53 Plt Count 219 K/mm3 (140-440) 09/13/17 05:53 Lymph % (Auto) 7.1 % (13.4-35.0) L 09/13/17 05:53 [place] % (Auto) 10.5 % (0.0-7.3) H 09/13/17 05:53 Eos % (Auto) 0.1 % (0.0-4.3) 09/13/17 05:53 Baso % (Auto) 0.1 % (0.0-1.8) 09/13/17 05:53 Lymph # 1.0 K/mm3 (1.2-5.4) L 09/13/17 05:53 [place] # 1.5 K/mm3 (0.0-0.8) H 09/13/17 05:53 Eos # 0.0 K/mm3 (0.0-0.4) 09/13/17 05:53 Baso # 0.0 K/mm3 (0.0-0.1) 09/13/17 05:53 Seg Neutrophils % 82.2 % (40.0-70.0) H 09/13/17 05:53 Seg Neutrophils # 11.7 K/mm3 (1.8-7.7) H 09/13/17 05:53 D-Dimer 1545.55 ng/mlDDU (0-234) H 09/11/17 21:15 Sodium 148 mmol/L (137-145) H 09/13/17 05:53 Potassium 3.5 mmol/L (3.6-5.0) L 09/13/17 05:53 Chloride 105.5 mmol/L (98-107) 09/13/17 05:53 Carbon Dioxide 28 mmol/L (22-30) 09/13/17 05:53 Anion Gap 18 mmol/L 09/13/17 05:53 BUN 25 mg/dL (7-17) H 09/13/17 05:53 Creatinine 0.5 mg/dL (0.7-1.2) L 09/13/17 05:53 Estimated GFR > 60 ml/min 09/13/17 05:53 BUN/Creatinine Ratio 50 % 09/13/17 05:53 Glucose 172 mg/dL (65-100) H 09/13/17 05:53 Lactic Acid 2.00 mmol/L (0.7-2.0) 09/13/17 13:49 Calcium 9.2 mg/dL (8.4-10.2) 09/13/17 05:53 Phosphorus 1.40 mg/dL (2.5-4.5) L 09/13/17 05:53 Magnesium 2.00 mg/dL (1.7-2.3) 09/13/17 05:53 Total Bilirubin 0.50 mg/dL (0.1-1.2) 09/13/17 05:53 AST 44 units/L (5-40) H 09/13/17 05:53 ALT 23 units/L (7-56) 09/13/17 05:53 Alkaline Phosphatase 95 units/L (35-129) 09/13/17 05:53 Total Creatine Kinase 445 units/L (30-135) H 09/11/17 21:15 CK-MB (CK-2) 4.0 ng/mL (0.0-4.0) 09/11/17 21:15 CK-MB (CK-2) Rel Index 0.8 (0-4) 09/11/17 21:15 Troponin T 0.084 ng/mL (0.00-0.029) H 09/11/17 21:15 NT-Pro-B Natriuret Pep 4636 pg/mL (0-900) H 09/11/17 21:15 Total Protein 5.8 g/dL (6.3-8.2) L 09/13/17 05:53 Albumin 2.8 g/dL (3.9-5) L 09/13/17 05:53 Albumin/Globulin Ratio 0.9 % 09/13/17 05:53 Triglycerides 136 mg/dL (2-149) 09/11/17 21:15 Cholesterol 140 mg/dL (50-199) 09/11/17 21:15 LDL Cholesterol Direct 73 mg/dL (50-130) 09/11/17 21:15 HDL Cholesterol 40 mg/dL (40-59) 09/11/17 21:15 Cholesterol/HDL Ratio 3.50 % 09/11/17 21:15
[2017-09-13] MEDS ORDERED: CEPHULAC PO PRN (18:00)
[2017-09-13 19:23] LABS: Bilirubin,Urine NEG (Negative); Blood,Urine SM (Negative); Ketones,Urine NEG (Negative); Leukocyte Esterase,Urine NEG (Negative); Nitrite,Urine NEG (Negative); Protein,Urine <15 mg/dL mg/dL (Negative); Urobilinogen,Urine < 2.0 mg/dL (<2.0)
[2017-09-13] MEDS: VANCOMYCIN VIAL 500 MG in NACL 0.9% 100 ML IV SCH (23:23)
[2017-09-14] MEDS: ZOSYN/NS 2.25 GM/50ML 2.25 GM/50 ML BAG IV SCH ×5 (00:29→23:48)
[2017-09-14 07:53] LABS: Basophils % (Auto) 0.1 % (0.0-1.8); Hematocrit 42.6 % (30.3-42.9); Mean Corpuscular HGB Conc 33 % (30-34); Mean Corpuscular Hemoglobin 35 pg (28-32); Mean Corpuscular Volume 105 fl (79-97); Platelet Count 280 K/mm3 (140-440); Red Blood Count 4.05 M/mm3 (3.65-5.03); Red Cell Distribution Width 12.9 % (13.2-15.2); White Blood Count 13.9 K/mm3 (4.5-11.0)
[2017-09-14] MEDS: DILANTIN PO SCH ×3 (08:01→21:14)
--- NOTE | 2017-09-14 09:17 | Progress Note ---
Assessment and Plan Assessment and plan: 81-year-old female that is on hospice and a DO NOT RESUSCITATE brought to the ER for decreased consciousness and fever and a bedsore on coccyx. Patient lethargic and minimally responsive. Per daughter, patient has been having weakness and difficulties in breathing and shortness of breath for 1 day. Case and care discussed with daughter. Daughter stated that the patient is not to be intubated but all other interventions can be done. Daughter states the patient is currently on antibiotics for UTI. Assessment and Plan Sepsis likely due to UTI, White count trending down Urine culture pending, and UA Continue IV Zosyn, Hyperglycemia A1c 5.2, SSI Altered mental status-likely secondary to UTI. CT revealed no acute processes Pneumonia Continue IV Zosyn. Vanc and Levaquin Hypoxia Oxygen via NC to keep O2 sat at > 94 Hypokalemia Worsening, Will replenish with KCL again today Multifocal atrial tachycardia on 12 lead ECG Cardiology following - Normal LVEF by echo 2 months ago Coreg changed to diltiazem Moderate to Severe Protein Calorie malnutrition Nutrition consulted DVT Prophylaxis SCDs History Interval history: Patient awake today but still only mumbles to questions asked. Sister at bedside Hospitalist Physical - Constitutional Vitals: Temp Pulse Resp BP Pulse Ox 99.3 F 128 H 18 167/114 94 09/14/17 08:19 09/14/17 08:19 09/14/17 08:19 09/14/17 08:19 09/14/17 08:19 General appearance: Present: no acute distress, other (cachectic) - EENT Eyes: Present: PERRL, EOM intact ENT: hearing intact, clear oral mucosa, poor dentition - Neck Neck: Present: supple, normal ROM - Respiratory Respiratory effort: normal - Cardiovascular Rhythm: regular Heart Sounds: Present: S1 & S2 - Extremities Extremities: no ischemia, No edema Peripheral Pulses: within normal limits - Abdominal General gastrointestinal: soft, non-tender - Integumentary Integumentary: Present: clear, warm, dry - Psychiatric Psychiatric: appropriate mood/affect, cooperative - Neurologic Neurologic: CNII-XII intact, moves all extremities - Allied Health Allied health notes reviewed: nursing Results - Labs CBC & Chem 7: 09/15/17 05:33 09/15/17 05:33 Labs: Laboratory Last Values WBC 13.9 K/mm3 (4.5-11.0) H 09/14/17 06:40 RBC 4.05 M/mm3 (3.65-5.03) 09/14/17 06:40 Hgb 14.0 gm/dl (10.1-14.3) 09/14/17 06:40 Hct 42.6 % (30.3-42.9) 09/14/17 06:40 MCV 105 fl (79-97) H 09/14/17 06:40 MCH 35 pg (28-32) H 09/14/17 06:40 MCHC 33 % (30-34) 09/14/17 06:40 RDW 12.9 % (13.2-15.2) L 09/14/17 06:40 Plt Count 280 K/mm3 (140-440) 09/14/17 06:40 Lymph % (Auto) 6.5 % (13.4-35.0) L 09/14/17 06:40 [place] % (Auto) 13.8 % (0.0-7.3) H 09/14/17 06:40 Eos % (Auto) 0.0 % (0.0-4.3) 09/14/17 06:40 Baso % (Auto) 0.1 % (0.0-1.8) 09/14/17 06:40 Lymph # 0.9 K/mm3 (1.2-5.4) L 09/14/17 06:40 [place] # 1.9 K/mm3 (0.0-0.8) H 09/14/17 06:40 Eos # 0.0 K/mm3 (0.0-0.4) 09/14/17 06:40 Baso # 0.0 K/mm3 (0.0-0.1) 09/14/17 06:40 Seg Neutrophils % 79.6 % (40.0-70.0) H 09/14/17 06:40 Seg Neutrophils # 11.1 K/mm3 (1.8-7.7) H 09/14/17 06:40 D-Dimer 1545.55 ng/mlDDU (0-234) H 09/11/17 21:15 Sodium 148 mmol/L (137-145) H 09/13/17 05:53 Potassium 3.5 mmol/L (3.6-5.0) L 09/13/17 05:53 Chloride 105.5 mmol/L (98-107) 09/13/17 05:53 Carbon Dioxide 28 mmol/L (22-30) 09/13/17 05:53 Anion Gap 18 mmol/L 09/13/17 05:53 BUN 25 mg/dL (7-17) H 09/13/17 05:53 Creatinine 0.5 mg/dL (0.7-1.2) L 09/13/17 05:53 Estimated GFR > 60 ml/min 09/13/17 05:53 BUN/Creatinine Ratio 50 % 09/13/17 05:53 Glucose 172 mg/dL (65-100) H 09/13/17 05:53 Hemoglobin A1c 5.2 % (4-6) 09/13/17 16:26 Lactic Acid 1.50 mmol/L (0.7-2.0) 09/13/17 16:26 Calcium 9.2 mg/dL (8.4-10.2) 09/13/17 05:53 Phosphorus 1.40 mg/dL (2.5-4.5) L 09/13/17 05:53 Magnesium 2.00 mg/dL (1.7-2.3) 09/13/17 05:53 Total Bilirubin 0.50 mg/dL (0.1-1.2) 09/13/17 05:53 AST 44 units/L (5-40) H 09/13/17 05:53 ALT 23 units/L (7-56) 09/13/17 05:53 Alkaline Phosphatase 95 units/L (35-129) 09/13/17 05:53 Total Creatine Kinase 445 units/L (30-135) H 09/11/17 21:15 CK-MB (CK-2) 4.0 ng/mL (0.0-4.0) 09/11/17 21:15 CK-MB (CK-2) Rel Index 0.8 (0-4) 09/11/17 21:15 Troponin T 0.042 ng/mL (0.00-0.029) H 09/14/17 06:40 NT-Pro-B Natriuret Pep 4636 pg/mL (0-900) H 09/11/17 21:15 Total Protein 5.8 g/dL (6.3-8.2) L 09/13/17 05:53 Albumin 2.8 g/dL (3.9-5) L 09/13/17 05:53 Albumin/Globulin Ratio 0.9 % 09/13/17 05:53 Triglycerides 136 mg/dL (2-149) 09/11/17 21:15 Cholesterol 140 mg/dL (50-199) 09/11/17 21:15 LDL Cholesterol Direct 73 mg/dL (50-130) 09/11/17 21:15 HDL Cholesterol 40 mg/dL (40-59) 09/11/17 21:15 Cholesterol/HDL Ratio 3.50 % 09/11/17 21:15 Urine Color Yellow (Yellow) 09/13/17 18:50 Urine Turbidity Clear (Clear) 09/13/17 18:50 Urine pH 6.0 (5.0-7.0) 09/13/17 18:50 Ur Specific [place] 1.015 (1.003-1.030) 09/13/17 18:50 Urine Protein <15 mg/dl mg/dL (Negative) 09/13/17 18:50 Urine Glucose (UA) 50 mg/dL (Negative) 09/13/17 18:50 Urine Ketones Neg mg/dL (Negative) 09/13/17 18:50 Urine Blood Sm (Negative) 09/13/17 18:50 Urine Nitrite Neg (Negative) 09/13/17 18:50 Urine Bilirubin Neg (Negative) 09/13/17 18:50 Urine Urobilinogen < 2.0 mg/dL (<2.0) 09/13/17 18:50 Ur Leukocyte Esterase Neg (Negative) 09/13/17 18:50
[2017-09-14] MEDS: LASIX IV SCH (09:18)
--- NOTE | 2017-09-14 09:30 | Event Note ---
Date: 09/14/17 Patient is examined this morning more awake but non-coming indicates of echodensity of the family she only makes 1 2 word statements. But most of the time at baseline and these are non-comprehensive. I did speak with a GOPI Abreu who states that the patient is a DO NOT RESUSCITATE categorically and that they would not want any hospice on discharge. They also wants full treatment for the pneumonia but do not want any further proceeds of cardiac or nutritional measures. She also states that he clearly understands that the patient is high risk for recurrent admission from pneumonia likely from aspiration as patient has baseline dementia and intermittent encephalopathy. Leukocytosis appears to be improving. We'll continue antibiotics ID input is appreciated. We'll keep head of bed greater than 45 to minimize aspiration. Fall precautions in place. Patient also has severe protein calorie malnutrition forestry supervisor consult has been placed. Cardiology input noted considered families request will not pursue echocardiogram at this time.
[2017-09-14 10:34] LABS: Alanine Aminotransferase 25 units/L (7-56); Albumin 2.9 g/dL (3.9-5); Albumin/Globulin Ratio 0.9 %; Alkaline Phosphatase 88 units/L (35-129); Anion Gap 21 mmol/L; BUN/Creatinine Ratio 38; Blood Urea Nitrogen 19 mg/dL (7-17); Calcium 9.4 mg/dL (8.4-10.2); Carbon Dioxide 24 mmol/L (22-30); Chloride 104.7 mmol/L (98-107); Glucose 181 mg/dL (65-100); Potassium 3.2 mmol/L (3.6-5.0); Sodium 146 mmol/L (137-145)
--- NOTE | 2017-09-14 11:02 | Progress Note ---
Assessment and Plan Altered Mental Status Pneumonia Multifocal atrial tachycardia on 12 lead ECG Normal LVEF by echo 2 months ago COPD Systemic Hypertension DNR Recommendations: Change coreg to diltiazem po Repeat 12 lead ECG Subjective Date of service: 09/14/17 Principal diagnosis: UTI Interval history: Patient is non-verbal. Sister at the bedside Objective Vital Signs Temp Pulse Resp BP Pulse Ox 09/14/17 08:19 99.3 F 128 H 18 167/114 94 09/13/17 22:48 98.2 F 122 H 18 160/95 92 09/13/17 17:07 98.7 F 111 H 24 173/84 94 - Physical Examination HEENT: Positive: PERRL Neck: Positive: neck supple Cardiac: Positive: irregularly irregular Lungs: Positive: Decreased Breath Sounds Neuro: Positive: Weakness Abdomen: Positive: Soft Skin: Positive: Clear Extremities: Absent: edema - Labs and Meds Cardiac Enzymes 09/14/17 Range/Units 07:40 AST 40 (5-40) units/L CBC 09/14/17 Range/Units 06:40 WBC 13.9 H (4.5-11.0) K/mm3 RBC 4.05 (3.65-5.03) M/mm3 Hgb 14.0 (10.1-14.3) gm/dl Hct 42.6 (30.3-42.9) % Plt Count 280 (140-440) K/mm3 Lymph # 0.9 L (1.2-5.4) K/mm3 [place] # 1.9 H (0.0-0.8) K/mm3 Eos # 0.0 (0.0-0.4) K/mm3 Baso # 0.0 (0.0-0.1) K/mm3 Comprehensive Metabolic Panel 09/14/17 Range/Units 07:40 Sodium 146 H (137-145) mmol/L Potassium 3.2 L (3.6-5.0) mmol/L Chloride 104.7 (98-107) mmol/L Carbon Dioxide 24 (22-30) mmol/L BUN 19 H (7-17) mg/dL Creatinine 0.5 L (0.7-1.2) mg/dL Glucose 181 H (65-100) mg/dL Calcium 9.4 (8.4-10.2) mg/dL AST 40 (5-40) units/L ALT 25 (7-56) units/L Alkaline Phosphatase 88 (35-129) units/L Total Protein 6.0 L (6.3-8.2) g/dL Albumin 2.9 L (3.9-5) g/dL
[2017-09-14] MEDS ORDERED: TYLENOL PR PRN (11:52)
[2017-09-14] MEDS: MS CONTIN ER PO SCH ×2 (11:58→22:07)
[2017-09-14] MEDS: CARDIZEM PO SCH ×2 (11:59→18:15)
[2017-09-14] MEDS: PROzac PO SCH (11:59)
[2017-09-14] MEDS: ZESTRIL PO SCH (11:59)
[2017-09-14] MEDS: COREG PO SCH (12:49)
--- NOTE | 2017-09-14 13:12 | Consultation ---
History of Present Illness - Reason for Consult Consult date: 09/14/17 sepsis Requesting physician: MATA MCCALL - History of Present Illness 81 years old female with history of COPD and HTN, she is currently on hospice and a DO NOT RESUSCITATE, admitted on 09/11 due to AMS, fever and a bedsore on coccyx. Patient lethargic and minimally responsive. Per daughter, patient has been having weakness and difficulties in breathing and shortness of breath for 1 day. Daughter states the patient is currently on antibiotics for UTI. Per EMS patient was hypoxic in route patient is currently on a nonrebreather. In the emergency room, initial temperature was 99.9 which then went to 100.2. Heart rate 113. O2 sat 98. Blood pressure 171/82. Initial white count 13.6. Hemoglobin 14.9. Platelets 192. Creatinine 0.7. Urinalysis was negative. Chest x-ray showed bibasilar pulmonary infiltrates. CT of the head was negative. Microbiology: Blood cultures: Urine cultures: 09/11 neg Respiratory cultures: Wound cultures: Current Antimicrobials: Zosyn 09/12 Vancomycin 09/12 Previous Antimicrobials: Past History Past Medical History: COPD, hypertension Medications and Allergies Allergies Allergy/AdvReac Type Severity Reaction Status Date / Time No Known Allergies Allergy Unverified 06/06/15 09:02 Home Medications Medication Instructions Recorded Confirmed Last Taken Type FLUoxetine HCL [PROzac] 20 mg PO QDAY 05/19/17 09/11/17 05/18/17 History HYDROcodone/APAP 7.5-325 [Burton 1 each PO Q4H PRN 09/11/17 09/11/17 Unknown History 7.5/325] Haloperidol 0.5 mg PO DAILY PRN 09/11/17 09/11/17 Unknown History LORazepam [Ativan] 1 mg PO Q4H PRN 09/11/17 09/11/17 Unknown History Levofloxacin [Levaquin TAB] 500 mg PO QDAY 09/11/17 09/11/17 Unknown History Morphine Sulfate [Morphine Sulfate 30 mg PO BID 09/11/17 09/11/17 Unknown History ER] Ondansetron [Zofran TAB] 4 mg PO Q4H PRN 09/11/17 09/11/17 Unknown History Promethazine [Phenergan TAB] 25 mg PO Q4H PRN 09/11/17 09/12/17 Unknown History QUEtiapine [SEROquel] 100 mg PO QHS 09/11/17 09/11/17 Unknown History Phenytoin (25 mg/ml) [Dilantin] 125 mg PO TID 09/12/17 09/12/17 Unknown History Active Meds: Active Medications Acetaminophen (Tylenol) 650 mg NM Q4H PRN PRN Reason: Pain, Mild (1-3) Acetaminophen/Hydrocodone Bitart ([place]ton 7.5/325) 1 each PO Q4H PRN PRN Reason: Pain, Moderate (4-6) Diltiazem HCl (Cardizem) 30 mg PO Q6HR [facility] Last Admin: 09/14/17 11:59 Dose: Not Given Fluoxetine HCl (Prozac) 20 mg PO QDAY [facility] Last Admin: 09/14/17 11:59 Dose: Not Given Furosemide (Lasix) 20 mg IV QDAY [facility] Last Admin: 09/14/17 09:18 Dose: 20 mg Haloperidol (Haldol) 0.5 mg PO DAILY PRN PRN Reason: Agitation Hydralazine HCl (Apresoline) 10 mg IV Q4HR PRN PRN Reason: Hypertension Last Admin: 09/14/17 09:19 Dose: 10 mg Dextrose/Sodium Chloride (D5/0.45ns) 1,000 mls @ 75 mls/hr IV DIRECT [facility] Last Admin: 09/13/17 23:50 Dose: 75 mls/hr Piperacillin Sod/Tazobactam Sod (Zosyn/Ns 2.25 Gm/50ml) 2.25 gm in 50 mls @ 100 mls/hr IV Q6HR [facility] Last Admin: 09/14/17 05:46 Dose: 100 mls/hr Vancomycin HCl 500 mg/ Sodium (Chloride) 100 mls @ 66.667 mls/hr IV Q24HR@2200 [facility] Last Admin: 09/13/17 23:23 Dose: 66.667 mls/hr Potassium Chloride (Kcl 10meq/100ml) 10 meq in 100 mls @ 100 mls/hr IV Q1H [facility] Stop: 09/14/17 16:59 Lactulose (Cephulac) 20 gm PO Q6H PRN PRN Reason: Constipation Lisinopril (Zestril) 2.5 mg PO QDAY [facility] Last Admin: 09/14/17 11:59 Dose: Not Given Lorazepam (Ativan) 1 mg PO Q4H PRN PRN Reason: Agitation Morphine Sulfate (Ms Contin Er) 30 mg PO BID [facility] Last Admin: 09/14/17 11:58 Dose: Not Given Phenytoin (Dilantin) 125 mg PO TID [facility] Last Admin: 09/14/17 08:01 Dose: Not Given Quetiapine Fumarate (Seroquel) 100 mg PO QHS [facility] Last Admin: 09/13/17 23:17 Dose: Not Given Vancomycin HCl (Vancomycin Pharmacy To Dose) 1 each IV PKCONSULT [facility] PRN Reason: Protocol Review of Systems ROS unobtainable: due to mental status Physical Examination - Physical Exam Narrative exam: General appearance: somnolent in NAD, conversant Eyes: anicteric sclerae, moist conjunctivae; no lid-lag; PERRLA HENT: Atraumatic; oropharynx limited Neck: Trachea midline; supple, no thyromegaly or lymphadenopathy Lungs: yoseph rhonchi CV: RRR Abdomen: Soft, non-tender Extremities: + edema Skin: Normal temperature, turgor and texture; no rash, ulcers or subcutaneous nodules Psych: somnolent. Neuro: somnolent non verbal Lines: No CVL / PICC - Constitutional Vitals: Vital Signs Temp Pulse Resp BP Pulse Ox 99.3 F 128 H 18 167/114 94 09/14/17 08:19 09/14/17 08:19 09/14/17 08:19 09/14/17 08:19 09/14/17 08:19 Temperature -Last 24 Hours Temperature 99.3 F Temperature 98.2 F Temperature 98.7 F Results - Labs CBC & Chem 7: 09/14/17 06:40 09/14/17 07:40 Labs: Abnormal lab results 09/14/17 09/14/17 09/14/17 Range/Units 02:10 06:40 06:40 WBC 13.9 H (4.5-11.0) K/mm3 MCV 105 H (79-97) fl MCH 35 H (28-32) pg RDW 12.9 L (13.2-15.2) % Lymph % (Auto) 6.5 L (13.4-35.0) % Power % (Auto) 13.8 H (0.0-7.3) % Lymph # 0.9 L (1.2-5.4) K/mm3 Power # 1.9 H (0.0-0.8) K/mm3 Seg Neutrophils % 79.6 H (40.0-70.0) % Seg Neutrophils # 11.1 H (1.8-7.7) K/mm3 Sodium (137-145) mmol/L Potassium (3.6-5.0) mmol/L BUN (7-17) mg/dL Creatinine (0.7-1.2) mg/dL Glucose (65-100) mg/dL Troponin T 0.044 H D 0.042 H (0.00-0.029) ng/mL Total Protein (6.3-8.2) g/dL Albumin (3.9-5) g/dL 09/14/17 Range/Units 07:40 WBC (4.5-11.0) K/mm3 MCV (79-97) fl MCH (28-32) pg RDW (13.2-15.2) % Lymph % (Auto) (13.4-35.0) % Power % (Auto) (0.0-7.3) % Lymph # (1.2-5.4) K/mm3 Power # (0.0-0.8) K/mm3 Seg Neutrophils % (40.0-70.0) % Seg Neutrophils # (1.8-7.7) K/mm3 Sodium 146 H (137-145) mmol/L Potassium 3.2 L (3.6-5.0) mmol/L BUN 19 H (7-17) mg/dL Creatinine 0.5 L (0.7-1.2) mg/dL Glucose 181 H (65-100) mg/dL Troponin T (0.00-0.029) ng/mL Total Protein 6.0 L (6.3-8.2) g/dL Albumin 2.9 L (3.9-5) g/dL Assessment and Plan Assessment: 1) Sepsis: Present on admission, manifested by fever, tachycardia, leukocytosis . Etiology most likely yoseph pneumonia. 2) Bilateral pneumonia ? aspiratio versus HCAP 3) [place] UTI: repeat UA and Urine cx neg 4) Encephalopathy 5) Multifocal atrial tachycardia -normal EF 6) COPD Plan: -follow-up blood cultures, urine culture -obtain respiratory cultures, C-reactive protein (CRP) -check influenza antigen PCR in nasopharinx -check Legionella urine antigen, Streptococcus pneumoniae urine antigen -continue zosyn and vanco for now -swallowing eval Thank you Dr Barth for your consultation, will follow up with you. Alexandria Watson MD Infectious Diseases Specialist [facility] ([facility]) M [phone] O [phone]
[2017-09-14] MEDS: KCL 10MEQ/100ML 10 MEQ/100 ML BAG IV SCH ×4 (14:50→17:25)
[2017-09-14] MEDS: D5/0.45NS 1,000 ML IV SCH (16:58)
[2017-09-14] MEDS ORDERED: HALDOL IM ONE (19:00)
[2017-09-14] MEDS: VANCOMYCIN VIAL 500 MG in NACL 0.9% 100 ML IV SCH (23:02)
[2017-09-15] MEDS: CARDIZEM PO SCH ×4 (00:58→22:04)
[2017-09-15] MEDS: D5/0.45NS 1,000 ML IV SCH (05:38)
[2017-09-15] MEDS: ZOSYN/NS 2.25 GM/50ML 2.25 GM/50 ML BAG IV SCH ×3 (05:38→20:47)
[2017-09-15 05:54] LABS: Hematocrit 41.3 % (30.3-42.9); Hemoglobin 14.3 gm/dl (10.1-14.3); Mean Corpuscular HGB Conc 35 % (30-34); Mean Corpuscular Hemoglobin 36 pg (28-32); Mean Corpuscular Volume 104 fl (79-97); Platelet Count 252 K/mm3 (140-440); Red Blood Count 3.98 M/mm3 (3.65-5.03); Red Cell Distribution Width 12.8 % (13.2-15.2); White Blood Count 12.9 K/mm3 (4.5-11.0)
[2017-09-15 06:20] LABS: Alanine Aminotransferase 20 units/L (7-56); Albumin 2.8 g/dL (3.9-5); Albumin/Globulin Ratio 1.3 %; Alkaline Phosphatase 78 units/L (35-129); Anion Gap 17 mmol/L; BUN/Creatinine Ratio 42; Blood Urea Nitrogen 21 mg/dL (7-17); Calcium 9.4 mg/dL (8.4-10.2); Carbon Dioxide 22 mmol/L (22-30); Chloride 111.6 mmol/L (98-107); Glucose 153 mg/dL (65-100); Sodium 148 mmol/L (137-145)
[2017-09-15 06:42] LABS: Anisocytosis 1+; Basophils % (Manual) 0 % (0.0-1.8); Blastocytes % (Manual) 0 %; Eosinophils % (Manual) 0 % (0.0-4.3); Ovalocytes Few
[2017-09-15 06:43] LABS: Diff Status Complete; Stomatocytes Few
[2017-09-15] MEDS: DILANTIN PO SCH ×3 (09:01→19:39)
--- NOTE | 2017-09-15 10:19 | Progress Note ---
Assessment and Plan Altered Mental Status Pneumonia Multifocal atrial tachycardia on 12 lead ECG Normal LVEF by echo 05/2017 on diltiazem COPD Systemic Hypertension DNR Recommendations: Remote telemetry monitoring Continue current management. Subjective Date of service: 09/15/17 Principal diagnosis: UTI Interval history: Patient is resting in bed comfortably. Family member at bedside. Objective Vital Signs Temp Pulse Resp BP BP Pulse Ox 09/15/17 09:03 98.4 F 62 18 158/98 94 09/15/17 08:18 99 09/14/17 22:51 98.7 F 21 131/101 09/14/17 22:02 99 09/14/17 16:55 98.1 F 146 H 16 150/85 94 - Physical Examination General: No Apparent Distress Cardiac: Positive: Irregularly Regular Extremities: Absent: edema - Labs and Meds Cardiac Enzymes 09/14/17 09/15/17 Range/Units 07:40 05:33 AST 40 24 (5-40) units/L CBC 09/15/17 Range/Units 05:33 WBC 12.9 H (4.5-11.0) K/mm3 RBC 3.98 (3.65-5.03) M/mm3 Hgb 14.3 (10.1-14.3) gm/dl Hct 41.3 (30.3-42.9) % Plt Count 252 (140-440) K/mm3 Comprehensive Metabolic Panel 09/14/17 09/15/17 Range/Units 07:40 05:33 Sodium 146 H 148 H (137-145) mmol/L Potassium 3.2 L 3.0 L (3.6-5.0) mmol/L Chloride 104.7 111.6 H (98-107) mmol/L Carbon Dioxide 24 22 (22-30) mmol/L BUN 19 H 21 H (7-17) mg/dL Creatinine 0.5 L 0.5 L (0.7-1.2) mg/dL Glucose 181 H 153 H (65-100) mg/dL Calcium 9.4 9.4 (8.4-10.2) mg/dL AST 40 24 (5-40) units/L ALT 25 20 (7-56) units/L Alkaline Phosphatase 88 78 (35-129) units/L Total Protein 6.0 L 5.0 L (6.3-8.2) g/dL Albumin 2.9 L 2.8 L (3.9-5) g/dL
--- NOTE | 2017-09-15 10:58 | Progress Note ---
<VALARIE COHEN - Last Filed: 09/15/17 12:33> Assessment and Plan Assessment and plan: 81-year-old female that is on hospice and a DO NOT RESUSCITATE brought to the ER for decreased consciousness and fever and a bedsore on coccyx. Patient lethargic and minimally responsive. Per daughter, patient has been having weakness and difficulties in breathing and shortness of breath for 1 day. Case and care discussed with daughter. Daughter stated that the patient is not to be intubated but all other interventions can be done. Daughter states the patient is currently on antibiotics for UTI. Sepsis likely due to Pneumonia White count trending down Urine culture pending showed no growth thus far Continue IV Zosyn, Hyperglycemia A1c 5.2, SSI Altered mental status-likely secondary to UTI. CT revealed no acute processes Pneumonia Continue IV Zosyn Vanc PICC line to be placed today Hypoxia Oxygen via NC to keep O2 sat at > 94 Hypokalemia Worsening, Will replenish with KCL and Mg today Multifocal atrial tachycardia on 12 lead ECG Cardiology following - Normal LVEF by echo 2 months ago Diltiazem Moderate to Severe Protein Calorie malnutrition Nutrition consulted, POA refused supplemental nutrition Patient NPO DVT Prophylaxis SCDs DC am to SNF with hospice History Interval history: Patient awake and alert still only mumbles to questions asked. Hospitalist Physical - Constitutional Vitals: Temp Pulse Resp BP Pulse Ox 98.4 F 62 18 158/98 94 09/15/17 09:03 09/15/17 09:03 09/15/17 09:03 09/15/17 09:03 09/15/17 09:03 General appearance: Present: no acute distress, other (cachectic) - EENT Eyes: Present: PERRL, EOM intact ENT: hearing intact, clear oral mucosa, poor dentition - Neck Neck: Present: supple, normal ROM - Respiratory Respiratory effort: normal Respiratory: bilateral: CTA - Cardiovascular Rhythm: regular Heart Sounds: Present: S1 & S2 - Extremities Extremities: no ischemia, No edema Peripheral Pulses: within normal limits - Abdominal General gastrointestinal: soft, non-tender - Integumentary Integumentary: Present: clear, warm, dry - Psychiatric Psychiatric: appropriate mood/affect - Neurologic Neurologic: CNII-XII intact, moves all extremities - Allied Health Allied health notes reviewed: nursing Results - Labs CBC & Chem 7: 09/15/17 05:33 09/15/17 05:33 Labs: Laboratory Last Values WBC 12.9 K/mm3 (4.5-11.0) H 09/15/17 05:33 RBC 3.98 M/mm3 (3.65-5.03) 09/15/17 05:33 Hgb 14.3 gm/dl (10.1-14.3) 09/15/17 05:33 Hct 41.3 % (30.3-42.9) 09/15/17 05:33 MCV 104 fl (79-97) H 09/15/17 05:33 MCH 36 pg (28-32) H 09/15/17 05:33 MCHC 35 % (30-34) H 09/15/17 05:33 RDW 12.8 % (13.2-15.2) L 09/15/17 05:33 Plt Count 252 K/mm3 (140-440) 09/15/17 05:33 Lymph % (Auto) 6.5 % (13.4-35.0) L 09/14/17 06:40 [place] % (Auto) 13.8 % (0.0-7.3) H 09/14/17 06:40 Eos % (Auto) 0.0 % (0.0-4.3) 09/14/17 06:40 Baso % (Auto) 0.1 % (0.0-1.8) 09/14/17 06:40 Lymph # 0.9 K/mm3 (1.2-5.4) L 09/14/17 06:40 [place] # 1.9 K/mm3 (0.0-0.8) H 09/14/17 06:40 Eos # 0.0 K/mm3 (0.0-0.4) 09/14/17 06:40 Baso # 0.0 K/mm3 (0.0-0.1) 09/14/17 06:40 Add Manual Diff Complete 09/15/17 05:33 Total Counted 100 09/15/17 05:33 Seg Neutrophils % 79.6 % (40.0-70.0) H 09/14/17 06:40 Seg Neuts % (Manual) 86.0 % (40.0-70.0) H 09/15/17 05:33 Band Neutrophils % 2.0 % 09/15/17 05:33 Lymphocytes % (Manual) 5.0 % (13.4-35.0) L 09/15/17 05:33 Reactive Lymphs % (Man) 0 % 09/15/17 05:33 Monocytes % (Manual) 7.0 % (0.0-7.3) 09/15/17 05:33 Eosinophils % (Manual) 0 % (0.0-4.3) 09/15/17 05:33 Basophils % (Manual) 0 % (0.0-1.8) 09/15/17 05:33 Metamyelocytes % 0 % 09/15/17 05:33 Myelocytes % 0 % 09/15/17 05:33 Promyelocytes % 0 % 09/15/17 05:33 Blast Cells % 0 % 09/15/17 05:33 Nucleated RBC % Not Reportable 09/15/17 05:33 Seg Neutrophils # 11.1 K/mm3 (1.8-7.7) H 09/14/17 06:40 Seg Neutrophils # Man 11.1 K/mm3 (1.8-7.7) H 09/15/17 05:33 Band Neutrophils # 0.3 K/mm3 09/15/17 05:33 Lymphocytes # (Manual) 0.6 K/mm3 (1.2-5.4) L 09/15/17 05:33 Abs React Lymphs (Man) 0.0 K/mm3 09/15/17 05:33 Monocytes # (Manual) 0.9 K/mm3 (0.0-0.8) H 09/15/17 05:33 Eosinophils # (Manual) 0.0 K/mm3 (0.0-0.4) 09/15/17 05:33 Basophils # (Manual) 0.0 K/mm3 (0.0-0.1) 09/15/17 05:33 Metamyelocytes # 0.0 K/mm3 09/15/17 05:33 Myelocytes # 0.0 K/mm3 09/15/17 05:33 Promyelocytes # 0.0 K/mm3 09/15/17 05:33 Blast Cells # 0.0 K/mm3 09/15/17 05:33 WBC Morphology Not Reportable 09/15/17 05:33 Hypersegmented Neuts Not Reportable 09/15/17 05:33 Hyposegmented Neuts Not Reportable 09/15/17 05:33 Hypogranular Neuts Not Reportable 09/15/17 05:33 Smudge Cells Not Reportable 09/15/17 05:33 Toxic Granulation Not Reportable 09/15/17 05:33 Toxic Vacuolation Not Reportable 09/15/17 05:33 Dohle Bodies Not Reportable 09/15/17 05:33 Pelger-Huet Anomaly Not Reportable 09/15/17 05:33 Kelly Rods Not Reportable 09/15/17 05:33 Platelet Estimate Appears normal 09/15/17 05:33 Clumped Platelets Not Reportable 09/15/17 05:33 Plt Clumps, EDTA Not Reportable 09/15/17 05:33 Large Platelets Not Reportable 09/15/17 05:33 Giant Platelets Not Reportable 09/15/17 05:33 Platelet Satelliting Not Reportable 09/15/17 05:33 Plt Morphology Comment Not Reportable 09/15/17 05:33 RBC Morphology Not Reportable 09/15/17 05:33 Dimorphic RBCs Not Reportable 09/15/17 05:33 Polychromasia Not Reportable 09/15/17 05:33 Hypochromasia Not Reportable 09/15/17 05:33 Poikilocytosis Not Reportable 09/15/17 05:33 Anisocytosis 1+ 09/15/17 05:33 Microcytosis Not Reportable 09/15/17 05:33 Macrocytosis Not Reportable 09/15/17 05:33 Spherocytes Not Reportable 09/15/17 05:33 Pappenheimer Bodies Not Reportable 09/15/17 05:33 Sickle Cells Not Reportable 09/15/17 05:33 Target Cells Not Reportable 09/15/17 05:33 Tear Drop Cells Not Reportable 09/15/17 05:33 Ovalocytes Few 09/15/17 05:33 Stomatocytes Few 09/15/17 05:33 Helmet Cells Not Reportable 09/15/17 05:33 [place] Bodies Not Reportable 09/15/17 05:33 Ball Rings Not Reportable 09/15/17 05:33 Susan Cells Not Reportable 09/15/17 05:33 Bite Cells Not Reportable 09/15/17 05:33 Crenated Cell Not Reportable 09/15/17 05:33 Elliptocytes Not Reportable 09/15/17 05:33 Acanthocytes (Spur) Not Reportable 09/15/17 05:33 Rouleaux Not Reportable 09/15/17 05:33 Hemoglobin C Crystals Not Reportable 09/15/17 05:33 Schistocytes Not Reportable 09/15/17 05:33 Malaria parasites Not Reportable 09/15/17 05:33 [place] Bodies Not Reportable 09/15/17 05:33 Hem Pathologist Commnt No 09/15/17 05:33 D-Dimer 1545.55 ng/mlDDU (0-234) H 09/11/17 21:15 Sodium 148 mmol/L (137-145) H 09/15/17 05:33 Potassium 3.0 mmol/L (3.6-5.0) L 09/15/17 05:33 Chloride 111.6 mmol/L (98-107) H 09/15/17 05:33 Carbon Dioxide 22 mmol/L (22-30) 09/15/17 05:33 Anion Gap 17 mmol/L 09/15/17 05:33 BUN 21 mg/dL (7-17) H 09/15/17 05:33 Creatinine 0.5 mg/dL (0.7-1.2) L 09/15/17 05:33 Estimated GFR > 60 ml/min 09/15/17 05:33 BUN/Creatinine Ratio 42 % 09/15/17 05:33 Glucose 153 mg/dL (65-100) H 09/15/17 05:33 Hemoglobin A1c 5.2 % (4-6) 09/13/17 16:26 Lactic Acid 1.50 mmol/L (0.7-2.0) 09/13/17 16:26 Calcium 9.4 mg/dL (8.4-10.2) 09/15/17 05:33 Phosphorus 1.40 mg/dL (2.5-4.5) L 09/13/17 05:53 Magnesium 2.00 mg/dL (1.7-2.3) 09/13/17 05:53 Total Bilirubin 0.60 mg/dL (0.1-1.2) 09/15/17 05:33 AST 24 units/L (5-40) 09/15/17 05:33 ALT 20 units/L (7-56) 09/15/17 05:33 Alkaline Phosphatase 78 units/L (35-129) 09/15/17 05:33 Total Creatine Kinase 445 units/L (30-135) H 09/11/17 21:15 CK-MB (CK-2) 4.0 ng/mL (0.0-4.0) 09/11/17 21:15 CK-MB (CK-2) Rel Index 0.8 (0-4) 09/11/17 21:15 Troponin T 0.042 ng/mL (0.00-0.029) H 09/14/17 06:40 C-Reactive Protein 4.00 mg/dL (0.00-1.30) H 09/14/17 07:40 NT-Pro-B Natriuret Pep 4636 pg/mL (0-900) H 09/11/17 21:15 Total Protein 5.0 g/dL (6.3-8.2) L 09/15/17 05:33 Albumin 2.8 g/dL (3.9-5) L 09/15/17 05:33 Albumin/Globulin Ratio 1.3 % 09/15/17 05:33 Triglycerides 136 mg/dL (2-149) 09/11/17 21:15 Cholesterol 140 mg/dL (50-199) 09/11/17 21:15 LDL Cholesterol Direct 73 mg/dL (50-130) 09/11/17 21:15 HDL Cholesterol 40 mg/dL (40-59) 09/11/17 21:15 Cholesterol/HDL Ratio 3.50 % 09/11/17 21:15 Urine Color Yellow (Yellow) 09/13/17 18:50 Urine Turbidity Clear (Clear) 09/13/17 18:50 Urine pH 6.0 (5.0-7.0) 09/13/17 18:50 Ur Specific [place] 1.015 (1.003-1.030) 09/13/17 18:50 Urine Protein <15 mg/dl mg/dL (Negative) 09/13/17 18:50 Urine Glucose (UA) 50 mg/dL (Negative) 09/13/17 18:50 Urine Ketones Neg mg/dL (Negative) 09/13/17 18:50 Urine Blood Sm (Negative) 09/13/17 18:50 Urine Nitrite Neg (Negative) 09/13/17 18:50 Urine Bilirubin Neg (Negative) 09/13/17 18:50 Urine Urobilinogen < 2.0 mg/dL (<2.0) 09/13/17 18:50 Ur Leukocyte Esterase Neg (Negative) 09/13/17 18:50 <CAM GIVENS - Last Filed: 09/15/17 15:33> Assessment and Plan Assessment and plan: I saw and evaluated the patient. I agree with the findings and the plan of care as documented in the Physician Mobility Architect's~note, with the following corrections and additional I spoke extensively with GOPI and she wants comfort care but also wants PICC line for all medications considering that the patient failed swallow eval. I adxised her that these are not the use for picc line as some of these medications when on IV need cardiac monitoring. She verablized understand and now wants Hospice WITH DISCHARGE. Hospitalist Physical - Constitutional Vitals: Temp Pulse Resp BP Pulse Ox 98.4 F 62 18 158/98 94 09/15/17 09:03 09/15/17 09:03 09/15/17 09:03 09/15/17 09:03 09/15/17 09:03 Results - Labs CBC & Chem 7: 09/15/17 05:33 09/15/17 05:33 Labs: Laboratory Last Values WBC 12.9 K/mm3 (4.5-11.0) H 09/15/17 05:33 RBC 3.98 M/mm3 (3.65-5.03) 09/15/17 05:33 Hgb 14.3 gm/dl (10.1-14.3) 09/15/17 05:33 Hct 41.3 % (30.3-42.9) 09/15/17 05:33 MCV 104 fl (79-97) H 09/15/17 05:33 MCH 36 pg (28-32) H 09/15/17 05:33 MCHC 35 % (30-34) H 09/15/17 05:33 RDW 12.8 % (13.2-15.2) L 09/15/17 05:33 Plt Count 252 K/mm3 (140-440) 09/15/17 05:33 Lymph % (Auto) 6.5 % (13.4-35.0) L 09/14/17 06:40 [place] % (Auto) 13.8 % (0.0-7.3) H 09/14/17 06:40 Eos % (Auto) 0.0 % (0.0-4.3) 09/14/17 06:40 Baso % (Auto) 0.1 % (0.0-1.8) 09/14/17 06:40 Lymph # 0.9 K/mm3 (1.2-5.4) L 09/14/17 06:40 [place] # 1.9 K/mm3 (0.0-0.8) H 09/14/17 06:40 Eos # 0.0 K/mm3 (0.0-0.4) 09/14/17 06:40 Baso # 0.0 K/mm3 (0.0-0.1) 09/14/17 06:40 Add Manual Diff Complete 09/15/17 05:33 Total Counted 100 09/15/17 05:33 Seg Neutrophils % 79.6 % (40.0-70.0) H 09/14/17 06:40 Seg Neuts % (Manual) 86.0 % (40.0-70.0) H 09/15/17 05:33 Band Neutrophils % 2.0 % 09/15/17 05:33 Lymphocytes % (Manual) 5.0 % (13.4-35.0) L 09/15/17 05:33 Reactive Lymphs % (Man) 0 % 09/15/17 05:33 Monocytes % (Manual) 7.0 % (0.0-7.3) 09/15/17 05:33 Eosinophils % (Manual) 0 % (0.0-4.3) 09/15/17 05:33 Basophils % (Manual) 0 % (0.0-1.8) 09/15/17 05:33 Metamyelocytes % 0 % 09/15/17 05:33 Myelocytes % 0 % 09/15/17 05:33 Promyelocytes % 0 % 09/15/17 05:33 Blast Cells % 0 % 09/15/17 05:33 Nucleated RBC % Not Reportable 09/15/17 05:33 Seg Neutrophils # 11.1 K/mm3 (1.8-7.7) H 09/14/17 06:40 Seg Neutrophils # Man 11.1 K/mm3 (1.8-7.7) H 09/15/17 05:33 Band Neutrophils # 0.3 K/mm3 09/15/17 05:33 Lymphocytes # (Manual) 0.6 K/mm3 (1.2-5.4) L 09/15/17 05:33 Abs React Lymphs (Man) 0.0 K/mm3 09/15/17 05:33 Monocytes # (Manual) 0.9 K/mm3 (0.0-0.8) H 09/15/17 05:33 Eosinophils # (Manual) 0.0 K/mm3 (0.0-0.4) 09/15/17 05:33 Basophils # (Manual) 0.0 K/mm3 (0.0-0.1) 09/15/17 05:33 Metamyelocytes # 0.0 K/mm3 09/15/17 05:33 Myelocytes # 0.0 K/mm3 09/15/17 05:33 Promyelocytes # 0.0 K/mm3 09/15/17 05:33 Blast Cells # 0.0 K/mm3 09/15/17 05:33 WBC Morphology Not Reportable 09/15/17 05:33 Hypersegmented Neuts Not Reportable 09/15/17 05:33 Hyposegmented Neuts Not Reportable 09/15/17 05:33 Hypogranular Neuts Not Reportable 09/15/17 05:33 Smudge Cells Not Reportable 09/15/17 05:33 Toxic Granulation Not Reportable 09/15/17 05:33 Toxic Vacuolation Not Reportable 09/15/17 05:33 Dohle Bodies Not Reportable 09/15/17 05:33 Pelger-Huet Anomaly Not Reportable 09/15/17 05:33 Kelly Rods Not Reportable 09/15/17 05:33 Platelet Estimate Appears normal 09/15/17 05:33 Clumped Platelets Not Reportable 09/15/17 05:33 Plt Clumps, EDTA Not Reportable 09/15/17 05:33 Large Platelets Not Reportable 09/15/17 05:33 Giant Platelets Not Reportable 09/15/17 05:33 Platelet Satelliting Not Reportable 09/15/17 05:33 Plt Morphology Comment Not Reportable 09/15/17 05:33 RBC Morphology Not Reportable 09/15/17 05:33 Dimorphic RBCs Not Reportable 09/15/17 05:33 Polychromasia Not Reportable 09/15/17 05:33 Hypochromasia Not Reportable 09/15/17 05:33 Poikilocytosis Not Reportable 09/15/17 05:33 Anisocytosis 1+ 09/15/17 05:33 Microcytosis Not Reportable 09/15/17 05:33 Macrocytosis Not Reportable 09/15/17 05:33 Spherocytes Not Reportable 09/15/17 05:33 Pappenheimer Bodies Not Reportable 09/15/17 05:33 Sickle Cells Not Reportable 09/15/17 05:33 Target Cells Not Reportable 09/15/17 05:33 Tear Drop Cells Not Reportable 09/15/17 05:33 Ovalocytes Few 09/15/17 05:33 Stomatocytes Few 09/15/17 05:33 Helmet Cells Not Reportable 09/15/17 05:33 [place] Bodies Not Reportable 09/15/17 05:33 Ball Rings Not Reportable 09/15/17 05:33 [place] Cells Not Reportable 09/15/17 05:33 Bite Cells Not Reportable 09/15/17 05:33 Crenated Cell Not Reportable 09/15/17 05:33 Elliptocytes Not Reportable 09/15/17 05:33 Acanthocytes (Spur) Not Reportable 09/15/17 05:33 Rouleaux Not Reportable 09/15/17 05:33 Hemoglobin C Crystals Not Reportable 09/15/17 05:33 Schistocytes Not Reportable 09/15/17 05:33 Malaria parasites Not Reportable 09/15/17 05:33 [place] Bodies Not Reportable 09/15/17 05:33 Hem Pathologist Commnt No 09/15/17 05:33 D-Dimer 1545.55 ng/mlDDU (0-234) H 09/11/17 21:15 Sodium 148 mmol/L (137-145) H 09/15/17 05:33 Potassium 3.0 mmol/L (3.6-5.0) L 09/15/17 05:33 Chloride 111.6 mmol/L (98-107) H 09/15/17 05:33 Carbon Dioxide 22 mmol/L (22-30) 09/15/17 05:33 Anion Gap 17 mmol/L 09/15/17 05:33 BUN 21 mg/dL (7-17) H 09/15/17 05:33 Creatinine 0.5 mg/dL (0.7-1.2) L 09/15/17 05:33 Estimated GFR > 60 ml/min 09/15/17 05:33 BUN/Creatinine Ratio 42 % 09/15/17 05:33 Glucose 153 mg/dL (65-100) H 09/15/17 05:33 Hemoglobin A1c 5.2 % (4-6) 09/13/17 16:26 Lactic Acid 1.50 mmol/L (0.7-2.0) 09/13/17 16:26 Calcium 9.4 mg/dL (8.4-10.2) 09/15/17 05:33 Phosphorus 1.40 mg/dL (2.5-4.5) L 09/13/17 05:53 Magnesium 2.00 mg/dL (1.7-2.3) 09/13/17 05:53 Total Bilirubin 0.60 mg/dL (0.1-1.2) 09/15/17 05:33 AST 24 units/L (5-40) 09/15/17 05:33 ALT 20 units/L (7-56) 09/15/17 05:33 Alkaline Phosphatase 78 units/L (35-129) 09/15/17 05:33 Total Creatine Kinase 445 units/L (30-135) H 09/11/17 21:15 CK-MB (CK-2) 4.0 ng/mL (0.0-4.0) 09/11/17 21:15 CK-MB (CK-2) Rel Index 0.8 (0-4) 09/11/17 21:15 Troponin T 0.042 ng/mL (0.00-0.029) H 09/14/17 06:40 C-Reactive Protein 4.00 mg/dL (0.00-1.30) H 09/14/17 07:40 NT-Pro-B Natriuret Pep 4636 pg/mL (0-900) H 09/11/17 21:15 Total Protein 5.0 g/dL (6.3-8.2) L 09/15/17 05:33 Albumin 2.8 g/dL (3.9-5) L 09/15/17 05:33 Albumin/Globulin Ratio 1.3 % 09/15/17 05:33 Triglycerides 136 mg/dL (2-149) 09/11/17 21:15 Cholesterol 140 mg/dL (50-199) 09/11/17 21:15 LDL Cholesterol Direct 73 mg/dL (50-130) 09/11/17 21:15 HDL Cholesterol 40 mg/dL (40-59) 09/11/17 21:15 Cholesterol/HDL Ratio 3.50 % 09/11/17 21:15 Urine Color Yellow (Yellow) 09/13/17 18:50 Urine Turbidity Clear (Clear) 09/13/17 18:50 Urine pH 6.0 (5.0-7.0) 09/13/17 18:50 Ur Specific [place] 1.015 (1.003-1.030) 09/13/17 18:50 Urine Protein <15 mg/dl mg/dL (Negative) 09/13/17 18:50 Urine Glucose (UA) 50 mg/dL (Negative) 09/13/17 18:50 Urine Ketones Neg mg/dL (Negative) 09/13/17 18:50 Urine Blood Sm (Negative) 09/13/17 18:50 Urine Nitrite Neg (Negative) 09/13/17 18:50 Urine Bilirubin Neg (Negative) 09/13/17 18:50 Urine Urobilinogen < 2.0 mg/dL (<2.0) 09/13/17 18:50 Ur Leukocyte Esterase Neg (Negative) 09/13/17 18:50
--- NOTE | 2017-09-15 11:32 | Progress Note ---
Assessment and Plan Assessment: 1) Sepsis: improving. Etiology most likely yoseph pneumonia. CRP=4 2) Bilateral pneumonia ? aspiration versus HCAP. influenza neg 3) [place] UTI: repeat UA and Urine cx neg 4) Encephalopathy - better 5) Multifocal atrial tachycardia -normal EF 6) COPD Plan: -obtain respiratory cultures -f/u Legionella urine antigen, Streptococcus pneumoniae urine antigen -continue zosyn and vanco for now day 4 -swallowing eval Thank you Dr Barth for your consultation, will follow up with you. Alexandria Watson MD Infectious Diseases Specialist [facility] ([facility]) M [phone] O [phone] Subjective Date of service: 09/15/17 Principal diagnosis: UTI Interval history: Feels better, more alert, no fever, last temp 100.2 Microbiology: Blood cultures: Urine cultures: 09/11 neg Influenza: neg Current Antimicrobials: Zosyn 09/12 Vancomycin 09/12 Previous Antimicrobials: Objective - Exam Narrative Exam: General appearance: somnolent in NAD, conversant Eyes: anicteric sclerae, moist conjunctivae; no lid-lag; PERRLA HENT: Atraumatic; oropharynx limited Neck: Trachea midline; supple, no thyromegaly or lymphadenopathy Lungs: yoseph rhonchi CV: RRR Abdomen: Soft, non-tender Extremities: + edema Skin: Normal temperature, turgor and texture; no rash, ulcers or subcutaneous nodules Psych: somnolent. Neuro: somnolent non verbal Lines: No CVL / PICC - Constitutional Vitals: Vital Signs Temp Pulse Resp BP Pulse Ox 98.4 F 62 18 158/98 94 09/15/17 09:03 09/15/17 09:03 09/15/17 09:03 09/15/17 09:03 09/15/17 09:03 Temperature -Last 24 Hours Temperature 98.4 F Temperature 98.7 F Temperature 98.1 F - Labs CBC & Chem 7: 09/15/17 05:33 09/15/17 05:33 Labs: Abnormal lab results 09/14/17 09/15/17 09/15/17 Range/Units 07:40 05:33 05:33 WBC 12.9 H (4.5-11.0) K/mm3 MCV 104 H (79-97) fl MCH 36 H (28-32) pg MCHC 35 H (30-34) % RDW 12.8 L (13.2-15.2) % Seg Neuts % (Manual) 86.0 H (40.0-70.0) % Lymphocytes % (Manual) 5.0 L (13.4-35.0) % Seg Neutrophils # Man 11.1 H (1.8-7.7) K/mm3 Lymphocytes # (Manual) 0.6 L (1.2-5.4) K/mm3 Monocytes # (Manual) 0.9 H (0.0-0.8) K/mm3 Sodium 148 H (137-145) mmol/L Potassium 3.0 L (3.6-5.0) mmol/L Chloride 111.6 H (98-107) mmol/L BUN 21 H (7-17) mg/dL Creatinine 0.5 L (0.7-1.2) mg/dL Glucose 153 H (65-100) mg/dL C-Reactive Protein 4.00 H (0.00-1.30) mg/dL Total Protein 5.0 L (6.3-8.2) g/dL Albumin 2.8 L (3.9-5) g/dL
[2017-09-15] MEDS ORDERED: MAGNESIUM SULFATE 1 GM in NACL 0.9% 50 ML IV ONE (12:00)
[2017-09-15] MEDS: LASIX IV SCH (12:15)
[2017-09-15] MEDS: PROzac PO SCH (12:22)
[2017-09-15] MEDS: MS CONTIN ER PO SCH ×2 (12:22→21:24)
[2017-09-15] MEDS: ZESTRIL PO SCH (12:22)
[2017-09-15] MEDS: KCL 10MEQ/100ML 10 MEQ/100 ML BAG IV SCH ×4 (14:04→19:15)
--- NOTE | 2017-09-15 15:39 | Discharge Summary ---
Providers - Providers Date of Admission: 09/12/17 00:47 Attending physician: CAM GIVENS MD 09/12/17 18:37 Consult to Wound/ET Nurse [CONS] Routine Reason For Exam: wound eval dark purple area on coccyx. POA. 09/12/17 23:17 Consult to Physician [CONS] Routine Consulting Provider: YOVANI STRE[address] Reason For Exam: CHF Notified:: PLEASE CALL MD IN AM 09/13/17 08:33 Speech Therapy Evaluation and Treat [CONS] Routine Reason For Exam: evaLUAte swallowing 09/13/17 12:51 Consult to Physician [CONS] Routine Consulting Provider: ANUSHA VALDES Reason For Exam: sepsis Place consult to:: Dr Ramey Notified:: yes Phone number called:: [phone] Time called:: 13:15 09/13/17 12:53 Consult to Dietitian/Nutrition [CONS] Routine Physician Instructions: Reason For Exam: Reason for Consult: Malnutrition 09/15/17 12:42 PICC Line Insertion [Consult to PICC Line RN] [CONS] Urgent Reason For Exam: IV ABTX Type Line:: PICC Primary care physician: [employer] Hospitalization Condition: Critical Disposition: DC-30 STILL A PATIENT Core Measure Documentation - Palliative Care Palliative Care/ Comfort Measures: Palliative Care/Comfort Measures Exam - Constitutional Vitals: Temp Pulse Resp BP Pulse Ox 98.4 F 62 18 158/98 94 09/15/17 09:03 09/15/17 09:03 09/15/17 09:03 09/15/17 09:03 09/15/17 09:03 Plan Follow up with: PRIMARY CAREMD [Primary Care Provider] - 3-5 Days Prescriptions: Diltiazem [Cardizem] 30 mg PO Q6HR #90 tablet HYDROcodone/APAP 7.5-325 [[place] 7.5-325 mg TAB] 1 each PO Q4H PRN #30 tablet PRN Reason: Pain Lisinopril [Zestril TAB] 2.5 mg PO QDAY #30 tablet
--- NOTE | 2017-09-15 16:24 | Discharge Summary ---
<VALARIE COHEN - Last Filed: 09/16/17 14:51> Providers - Providers Date of Admission: 09/12/17 00:47 Date of discharge: 09/16/17 Attending physician: CAM GIVENS MD 09/12/17 18:37 Consult to Wound/ET Nurse [CONS] Routine Reason For Exam: wound eval dark purple area on coccyx. POA. 09/12/17 23:17 Consult to Physician [CONS] Routine Consulting Provider: YOV[address] Reason For Exam: CHF Notified:: PLEASE CALL MD IN AM 09/13/17 08:33 Speech Therapy Evaluation and Treat [CONS] Routine Reason For Exam: evaLUAte swallowing 09/13/17 12:51 Consult to Physician [CONS] Routine Consulting Provider: ANUSHA VALDES Reason For Exam: sepsis Place consult to:: Dr Ramey Notified:: yes Phone number called:: [phone] Time called:: 13:15 09/13/17 12:53 Consult to Dietitian/Nutrition [CONS] Routine Physician Instructions: Reason For Exam: Reason for Consult: Malnutrition 09/15/17 12:42 PICC Line Insertion [Consult to PICC Line RN] [CONS] Urgent Reason For Exam: IV ABTX Type Line:: PICC Primary care physician: ASSOCIATE FINANCIAL ADVISOR Hospitalization Condition: Fair Hospital course: 81-year-old female that is on hospice and a DO NOT RESUSCITATE brought to the ER for decreased consciousness and fever and a bedsore on coccyx. Patient lethargic and minimally responsive. Per daughter, patient has been having weakness and difficulties in breathing and shortness of breath for 1 day. Case and care discussed with daughter. Daughter stated that the patient is not to be intubated but all other interventions can be done. Daughter states the patient is currently on antibiotics for UTI. Chest Xray was suspicious for pneumonia. Head CT revealed no acute intracranial process. Patient was treated with IV antibiotics, antihypertensives, diuretics, Potassium, Magnesium, oxygen and resumed outpatient medications. Discharge diagnosis Sepsis Hyperglycemia Altered mental status Pneumonia Hypoxia Hypokalemia Multifocal atrial tachycardia on 12 lead ECG Moderate to Severe Protein Calorie malnutrition Disposition: DC/TX-03 SNF [facility] Time spent for discharge: 32 mins Core Measure Documentation - Palliative Care Palliative Care/ Comfort Measures: Hospice Care - Core Measures Any of the following diagnoses?: none Exam - Constitutional Vitals: Temp Pulse Resp BP Pulse Ox 98.4 F 62 18 158/98 94 09/15/17 09:03 09/15/17 09:03 09/15/17 09:03 09/15/17 09:03 09/15/17 09:03 General appearance: Present: no acute distress, well-nourished - EENT Eyes: Present: PERRL ENT: hearing intact, clear oral mucosa, poor dentition - Neck Neck: Present: supple, normal ROM - Respiratory Respiratory effort: normal Respiratory: bilateral: CTA - Cardiovascular Rhythm: irregularly irregular Heart Sounds: Present: S1 & S2 - Extremities Extremities: pulses symmetrical, No edema Peripheral Pulses: within normal limits - Abdominal General gastrointestinal: Present: soft, non-tender, non-distended, normal bowel sounds Female genitourinary: Present: deferred - Rectal Rectal Exam: deferred - Integumentary Integumentary: Present: clear, warm, dry - Musculoskeletal Musculoskeletal: gait normal, strength equal bilaterally - Psychiatric Psychiatric: cooperative - Neurologic Neurologic: moves all extremities, other (nonverbal) - Allied Health Allied health notes reviewed: nursing Plan Activity: fall precautions Weight Bearing Status: Weight Bear as Tolerated Diet: low fat, low cholesterol, low salt Follow up with: PRIMARY CAREMD [Primary Care Provider] - 3-5 Days Prescriptions: Diltiazem [Cardizem] 30 mg PO Q6HR #90 tablet HYDROcodone/APAP 7.5-325 [[place] 7.5-325 mg TAB] 1 each PO Q4H PRN #30 tablet PRN Reason: Pain Lisinopril [Zestril TAB] 2.5 mg PO QDAY #30 tablet Piperacillin/Tazobactam [Zosyn] 3.375 gm IV Q8HR 5 Days vial <CAM GIVENS - Last Filed: 09/17/17 17:46> Providers - Providers Date of Admission: 09/12/17 00:47 Attending physician: CAM GIVENS MD 09/12/17 18:37 Consult to Wound/ET Nurse [CONS] Routine Reason For Exam: wound eval dark purple area on coccyx. POA. 09/12/17 23:17 Consult to Physician [CONS] Routine Consulting Provider: YOVANI STRE[address] Reason For Exam: CHF Notified:: PLEASE CALL IN AM 09/13/17 08:33 Speech Therapy Evaluation and Treat [CONS] Routine Reason For Exam: evaLUAte swallowing 09/13/17 12:51 Consult to Physician [CONS] Routine Consulting Provider: ANUSHA VALDES Reason For Exam: sepsis Place consult to:: Dr Ramey Notified:: yes Phone number called:: [phone] Time called:: 13:15 09/13/17 12:53 Consult to Dietitian/Nutrition [CONS] Routine Physician Instructions: Reason For Exam: Reason for Consult: Malnutrition 09/15/17 12:42 PICC Line Insertion [Consult to PICC Line RN] [CONS] Urgent Reason For Exam: IV ABTX Type Line:: PICC Primary care physician: ASSOCIATE FINANCIAL ADVISOR Hospitalization Reason for admission: Aspiration penumonitis Hospital course: I saw and evaluated the patient. I agree with the findings and the plan of care as documented in the Nurse Practitioner's~note, with the following corrections and additions. Patient develop MAT, family refused any aggressive measure, also she was kept NPO due to failed swallow eval. They opted only for ABX and for discharge with hospice at SNF. Exam - Constitutional Vitals: Temp Pulse Resp BP Pulse Ox 98.8 F 108 H 22 141/70 95 09/16/17 20:34 09/16/17 20:34 09/16/17 20:34 09/16/17 20:34 09/16/17 20:34
--- NOTE | 2017-09-15 17:21 | XRay Report ---
FINAL REPORT EXAM: XR CHEST 1V AP HISTORY: To confirm PICC line placement TECHNIQUE: Frontal chest radiograph. PRIORS: 09/11/2017. FINDINGS: Left upper extremity PICC tip lies deep within the right atrium. Unchanged cardiomegaly. Unchanged atherosclerotic calcifications in the thoracic aorta. Patchy bilateral lower lobe consolidation is again seen. No pleural effusion. No pneumothorax. No acute osseous abnormality. IMPRESSION: 1. Left upper extremity PICC tip lying deep within the right atrium. The catheter could be pulled back at least 5 centimeters. 2. Bilateral lower lobe consolidative opacities may represent pneumonia versus underlying pulmonary neoplasms. Findings may also be related to diaphragmatic eventration. Recommend following radiographically to resolution.
[2017-09-15] MEDS ORDERED: CARDIZEM IV ONE ×2 (18:14→21:02)
--- NOTE | 2017-09-15 18:18 | Event Note ---
Date: 09/15/17 HR increased to 170. Based on early conversation with niece, will transfer patient to Tele. start on Lopressor IV. Cardizem IV 20mg x 1
--- NOTE | 2017-09-15 18:35 | XRay Report ---
FINAL REPORT EXAM: XR CHEST 1V AP HISTORY: PICC PLACEMENT TECHNIQUE: Portable upright frontal chest x-ray Comparison: Earlier same day FINDINGS: There has been interval retraction of the left PICC line. The tip now projects in the region of the cavoatrial junction. Enlarged cardiac silhouette with dense opacities in both lung bases slightly separate from the cardiac contour. The left hemidiaphragm is silhouetted. The right is not. There appear to be gas bubbles in the left lung base suggestive of eventration hemidiaphragm, diaphragmatic hernia, or pneumonia is containing air bronchograms and air versus less likely abscess. Underlying emphysema and diffuse coarse interstitial markings. IMPRESSION: Left PICC line has been retracted. Tip projects at the cavoatrial junction appropriately. Dense bilateral basal opacities. There may be a left diaphragmatic eventration versus hernia or primary pulmonary/pleural pathology containing gas. The right hemidiaphragm is not silhouetted. Recommend CT to further assess the basilar pathologies. Cardiac silhouette is enlarged.
[2017-09-15] MEDS: VANCOMYCIN VIAL 500 MG in NACL 0.9% 100 ML IV SCH (23:20)
[2017-09-15] MEDS: LOPRESSOR IV SCH (23:24)
[2017-09-16] MEDS: CARDIZEM PO SCH ×4 (00:44→18:30)
[2017-09-16] MEDS: ZOSYN/NS 2.25 GM/50ML 2.25 GM/50 ML BAG IV SCH ×4 (00:45→18:49)
[2017-09-16] MEDS: LOPRESSOR IV SCH ×3 (06:21→18:47)
[2017-09-16] MEDS: DILANTIN PO SCH ×2 (09:00→13:31)
--- NOTE | 2017-09-16 09:29 | Progress Note ---
Assessment and Plan Altered Mental Status Pneumonia Atrial fibrillation rate control Normal LVEF by echo 05/2017 COPD Systemic Hypertension DNR status Continue IV beta blockers for rate control. Subjective Date of service: 09/16/17 Principal diagnosis: UTI Interval history: No distress noted. Family member at bedside. Rapid afib on telemetry monitoring. Patient is NPO status. Objective Vital Signs Temp Pulse Pulse Resp BP BP Pulse Ox 09/16/17 06:21 92 H 132/80 95 09/16/17 06:08 111 H 95 09/16/17 00:44 120 H 09/15/17 23:24 142 H 115/70 09/15/17 22:00 140 H 24 98 09/15/17 21:30 97.4 F L 134 H 24 107/68 93 09/15/17 21:14 146 H 127/74 09/15/17 20:06 179 H 140/76 09/15/17 20:03 137 H 94 09/15/17 20:02 173 H 22 140/76 91 09/15/17 16:42 99.0 F 100 H 20 121/55 93 - Physical Examination General: No Apparent Distress Cardiac: Positive: irregularly irregular
--- NOTE | 2017-09-16 11:12 | Progress Note ---
Assessment and Plan Assessment: 1) Sepsis: more tachycardic today. Etiology most likely yoseph pneumonia. CRP=4 2) Bilateral pneumonia ? aspiration versus HCAP. influenza neg 3) Recent UTI: repeat UA and Urine cx neg 4) Encephalopathy - not better 5) Multifocal atrial tachycardia -normal EF 6) COPD Plan: -f/u Legionella urine antigen, Streptococcus pneumoniae urine antigen -continue zosyn day 5 -stop vanco Thank you Dr Barth for your consultation, will follow up with you. Alexandria Watson MD Infectious Diseases Specialist [facility] [place] [facility] ([facility]) M [phone] O [phone] Subjective Date of service: 09/16/17 Principal diagnosis: UTI Interval history: More somnolent and SOB today, no fever, more tachy on monitor Microbiology: Blood cultures: Urine cultures: 09/11 neg Influenza: neg Current Antimicrobials: Zosyn 09/12 Vancomycin 09/12 Previous Antimicrobials: Objective - Exam Narrative Exam: General appearance: somnolent in NAD, conversant Eyes: anicteric sclerae, moist conjunctivae; no lid-lag; PERRLA HENT: Atraumatic; oropharynx limited Neck: Trachea midline; supple, no thyromegaly or lymphadenopathy Lungs: yoseph rhonchi CV: tachy Abdomen: Soft, non-tender Extremities: + edema Skin: Normal temperature, turgor and texture; no rash, ulcers or subcutaneous nodules Psych: somnolent. Neuro: somnolent non verbal Lines: No CVL / PICC - Constitutional Vitals: Vital Signs Temp Pulse Resp BP Pulse Ox 97.4 F L 92 H 24 132/80 95 09/15/17 21:30 09/16/17 06:21 09/15/17 22:00 09/16/17 06:21 09/16/17 06:21 Temperature -Last 24 Hours Temperature 97.4 F Temperature 99.0 F - Labs CBC & Chem 7: 09/15/17 05:33 09/15/17 05:33
[2017-09-16] MEDS: MS CONTIN ER PO SCH (11:20)
[2017-09-16] MEDS: LASIX IV SCH (11:20)
[2017-09-16] MEDS: ZESTRIL PO SCH (11:22)
[2017-09-16] MEDS: PROzac PO SCH (11:22)
--- NOTE | 2017-09-16 17:40 | Progress Note ---
Assessment and Plan Assessment and plan: 81-year-old female that is on hospice and a DO NOT RESUSCITATE brought to the ER for decreased consciousness and fever and a bedsore on coccyx. Patient lethargic and minimally responsive. Per daughter, patient has been having weakness and difficulties in breathing and shortness of breath for 1 day. Case and care discussed with daughter. Daughter stated that the patient is not to be intubated but all other interventions can be done. Daughter states the patient is currently on antibiotics for UTI. Sepsis likely due to Aspiration Pneumonia White count trending down Urine culture pending showed no growth thus far Continue IV Zosyn, Acute on chronic Respiratory failure continue nebs, comfort measures NSVT- Continue iv Lopressor, Cardizem drip if not controlled. family do not want any intervention They opted for full hospice care and we are awaiting hospice team, will continue treatment per family request Hyperglycemia A1c 5.2 SSI Altered mental status-likely secondary to UTI. CT revealed no acute processes Pneumonia Continue IV Zosyn Vanc PICC line to be placed today Hypoxia Oxygen via NC to keep O2 sat at > 94 Hypokalemia Worsening, Will replenish with KCL and Mg today Multifocal atrial tachycardia on 12 lead ECG Cardiology following - Normal LVEF by echo 2 months ago Diltiazem Moderate to Severe Protein Calorie malnutrition Nutrition consulted, POA refused supplemental nutrition Patient NPO DVT Prophylaxis SCDs History Interval history: Patient seen and examined, still with tachycardia, family at bedside states they do not want to have any aggressive measures. I advised her to speak with her sister who is the power of commercial attorney. Hospitalist Physical - Physical exam Narrative exam: General appearance: Present: Tachypenic, other (cachectic) ill appearing - EENT Eyes: Present: PERRL, EOM intact ENT: hearing intact, clear oral mucosa, poor dentition - Neck Neck: Present: supple, normal ROM - Respiratory Respiratory effort: increased Respiratory: bilateral: diminshed - Cardiovascular Rhythm: Irregular and tachycardia Heart Sounds: Present: S1 & S2 - Extremities Extremities: no ischemia, No edema Peripheral Pulses: within normal limits - Abdominal General gastrointestinal: soft, non-tender - Integumentary Integumentary: Present: clear, warm, dry - Psychiatric Psychiatric: appropriate mood/affect - Neurologic Neurologic: CNII-XII intact, moves all extremities, non verbal - Allied Health Allied health notes reviewed: nursing . - Constitutional Vitals: Temp Pulse Resp BP Pulse Ox 97.4 F L 109 H 22 151/89 96 09/15/17 21:30 09/16/17 11:20 09/16/17 11:20 09/16/17 11:20 09/16/17 10:00 General appearance: Present: no acute distress, well-nourished Results - Labs CBC & Chem 7: 09/15/17 05:33 09/15/17 05:33 Labs: Laboratory Last Values WBC 12.9 K/mm3 (4.5-11.0) H 09/15/17 05:33 RBC 3.98 M/mm3 (3.65-5.03) 09/15/17 05:33 Hgb 14.3 gm/dl (10.1-14.3) 09/15/17 05:33 Hct 41.3 % (30.3-42.9) 09/15/17 05:33 MCV 104 fl (79-97) H 09/15/17 05:33 MCH 36 pg (28-32) H 09/15/17 05:33 MCHC 35 % (30-34) H 09/15/17 05:33 RDW 12.8 % (13.2-15.2) L 09/15/17 05:33 Plt Count 252 K/mm3 (140-440) 09/15/17 05:33 Lymph % (Auto) 6.5 % (13.4-35.0) L 09/14/17 06:40 Bent % (Auto) 13.8 % (0.0-7.3) H 09/14/17 06:40 Eos % (Auto) 0.0 % (0.0-4.3) 09/14/17 06:40 Baso % (Auto) 0.1 % (0.0-1.8) 09/14/17 06:40 Lymph # 0.9 K/mm3 (1.2-5.4) L 09/14/17 06:40 Bent # 1.9 K/mm3 (0.0-0.8) H 09/14/17 06:40 Eos # 0.0 K/mm3 (0.0-0.4) 09/14/17 06:40 Baso # 0.0 K/mm3 (0.0-0.1) 09/14/17 06:40 Add Manual Diff Complete 09/15/17 05:33 Total Counted 100 09/15/17 05:33 Seg Neutrophils % 79.6 % (40.0-70.0) H 09/14/17 06:40 Seg Neuts % (Manual) 86.0 % (40.0-70.0) H 09/15/17 05:33 Band Neutrophils % 2.0 % 09/15/17 05:33 Lymphocytes % (Manual) 5.0 % (13.4-35.0) L 09/15/17 05:33 Reactive Lymphs % (Man) 0 % 09/15/17 05:33 Monocytes % (Manual) 7.0 % (0.0-7.3) 09/15/17 05:33 Eosinophils % (Manual) 0 % (0.0-4.3) 09/15/17 05:33 Basophils % (Manual) 0 % (0.0-1.8) 09/15/17 05:33 Metamyelocytes % 0 % 09/15/17 05:33 Myelocytes % 0 % 09/15/17 05:33 Promyelocytes % 0 % 09/15/17 05:33 Blast Cells % 0 % 09/15/17 05:33 Nucleated RBC % Not Reportable 09/15/17 05:33 Seg Neutrophils # 11.1 K/mm3 (1.8-7.7) H 09/14/17 06:40 Seg Neutrophils # Man 11.1 K/mm3 (1.8-7.7) H 09/15/17 05:33 Band Neutrophils # 0.3 K/mm3 09/15/17 05:33 Lymphocytes # (Manual) 0.6 K/mm3 (1.2-5.4) L 09/15/17 05:33 Abs React Lymphs (Man) 0.0 K/mm3 09/15/17 05:33 Monocytes # (Manual) 0.9 K/mm3 (0.0-0.8) H 09/15/17 05:33 Eosinophils # (Manual) 0.0 K/mm3 (0.0-0.4) 09/15/17 05:33 Basophils # (Manual) 0.0 K/mm3 (0.0-0.1) 09/15/17 05:33 Metamyelocytes # 0.0 K/mm3 09/15/17 05:33 Myelocytes # 0.0 K/mm3 09/15/17 05:33 Promyelocytes # 0.0 K/mm3 09/15/17 05:33 Blast Cells # 0.0 K/mm3 09/15/17 05:33 WBC Morphology Not Reportable 09/15/17 05:33 Hypersegmented Neuts Not Reportable 09/15/17 05:33 Hyposegmented Neuts Not Reportable 09/15/17 05:33 Hypogranular Neuts Not Reportable 09/15/17 05:33 Smudge Cells Not Reportable 09/15/17 05:33 Toxic Granulation Not Reportable 09/15/17 05:33 Toxic Vacuolation Not Reportable 09/15/17 05:33 Dohle Bodies Not Reportable 09/15/17 05:33 Pelger-Huet Anomaly Not Reportable 09/15/17 05:33 Kelly Rods Not Reportable 09/15/17 05:33 Platelet Estimate Appears normal 09/15/17 05:33 Clumped Platelets Not Reportable 09/15/17 05:33 Plt Clumps, EDTA Not Reportable 09/15/17 05:33 Large Platelets Not Reportable 09/15/17 05:33 Giant Platelets Not Reportable 09/15/17 05:33 Platelet Satelliting Not Reportable 09/15/17 05:33 Plt Morphology Comment Not Reportable 09/15/17 05:33 RBC Morphology Not Reportable 09/15/17 05:33 Dimorphic RBCs Not Reportable 09/15/17 05:33 Polychromasia Not Reportable 09/15/17 05:33 Hypochromasia Not Reportable 09/15/17 05:33 Poikilocytosis Not Reportable 09/15/17 05:33 Anisocytosis 1+ 09/15/17 05:33 Microcytosis Not Reportable 09/15/17 05:33 Macrocytosis Not Reportable 09/15/17 05:33 Spherocytes Not Reportable 09/15/17 05:33 Pappenheimer Bodies Not Reportable 09/15/17 05:33 Sickle Cells Not Reportable 09/15/17 05:33 Target Cells Not Reportable 09/15/17 05:33 Tear Drop Cells Not Reportable 09/15/17 05:33 Ovalocytes Few 09/15/17 05:33 Stomatocytes Few 09/15/17 05:33 Helmet Cells Not Reportable 09/15/17 05:33 Durant-Campanilla Bodies Not Reportable 09/15/17 05:33 Fontana Rings Not Reportable 09/15/17 05:33 Susan Cells Not Reportable 09/15/17 05:33 Bite Cells Not Reportable 09/15/17 05:33 Crenated Cell Not Reportable 09/15/17 05:33 Elliptocytes Not Reportable 09/15/17 05:33 Acanthocytes (Spur) Not Reportable 09/15/17 05:33 Rouleaux Not Reportable 09/15/17 05:33 Hemoglobin C Crystals Not Reportable 09/15/17 05:33 Schistocytes Not Reportable 09/15/17 05:33 Malaria parasites Not Reportable 09/15/17 05:33 Griffin Bodies Not Reportable 09/15/17 05:33 Hem Pathologist Commnt No 09/15/17 05:33 D-Dimer 1545.55 ng/mlDDU (0-234) H 09/11/17 21:15 Sodium 148 mmol/L (137-145) H 09/15/17 05:33 Potassium 3.0 mmol/L (3.6-5.0) L 09/15/17 05:33 Chloride 111.6 mmol/L (98-107) H 09/15/17 05:33 Carbon Dioxide 22 mmol/L (22-30) 09/15/17 05:33 Anion Gap 17 mmol/L 09/15/17 05:33 BUN 21 mg/dL (7-17) H 09/15/17 05:33 Creatinine 0.5 mg/dL (0.7-1.2) L 09/15/17 05:33 Estimated GFR > 60 ml/min 09/15/17 05:33 BUN/Creatinine Ratio 42 % 09/15/17 05:33 Glucose 153 mg/dL (65-100) H 09/15/17 05:33 Hemoglobin A1c 5.2 % (4-6) 09/13/17 16:26 Lactic Acid 1.50 mmol/L (0.7-2.0) 09/13/17 16:26 Calcium 9.4 mg/dL (8.4-10.2) 09/15/17 05:33 Phosphorus 1.40 mg/dL (2.5-4.5) L 09/13/17 05:53 Magnesium 2.00 mg/dL (1.7-2.3) 09/13/17 05:53 Total Bilirubin 0.60 mg/dL (0.1-1.2) 09/15/17 05:33 AST 24 units/L (5-40) 09/15/17 05:33 ALT 20 units/L (7-56) 09/15/17 05:33 Alkaline Phosphatase 78 units/L (35-129) 09/15/17 05:33 Total Creatine Kinase 445 units/L (30-135) H 09/11/17 21:15 CK-MB (CK-2) 4.0 ng/mL (0.0-4.0) 09/11/17 21:15 CK-MB (CK-2) Rel Index 0.8 (0-4) 09/11/17 21:15 Troponin T 0.042 ng/mL (0.00-0.029) H 09/14/17 06:40 C-Reactive Protein 4.00 mg/dL (0.00-1.30) H 09/14/17 07:40 NT-Pro-B Natriuret Pep 4636 pg/mL (0-900) H 09/11/17 21:15 Total Protein 5.0 g/dL (6.3-8.2) L 09/15/17 05:33 Albumin 2.8 g/dL (3.9-5) L 09/15/17 05:33 Albumin/Globulin Ratio 1.3 % 09/15/17 05:33 Triglycerides 136 mg/dL (2-149) 09/11/17 21:15 Cholesterol 140 mg/dL (50-199) 09/11/17 21:15 LDL Cholesterol Direct 73 mg/dL (50-130) 09/11/17 21:15 HDL Cholesterol 40 mg/dL (40-59) 09/11/17 21:15 Cholesterol/HDL Ratio 3.50 % 09/11/17 21:15 Urine Color Yellow (Yellow) 09/13/17 18:50 Urine Turbidity Clear (Clear) 09/13/17 18:50 Urine pH 6.0 (5.0-7.0) 09/13/17 18:50 Ur Specific Lancing 1.015 (1.003-1.030) 09/13/17 18:50 Urine Protein <15 mg/dl mg/dL (Negative) 09/13/17 18:50 Urine Glucose (UA) 50 mg/dL (Negative) 09/13/17 18:50 Urine Ketones Neg mg/dL (Negative) 09/13/17 18:50 Urine Blood Sm (Negative) 09/13/17 18:50 Urine Nitrite Neg (Negative) 09/13/17 18:50 Urine Bilirubin Neg (Negative) 09/13/17 18:50 Urine Urobilinogen < 2.0 mg/dL (<2.0) 09/13/17 18:50 Ur Leukocyte Esterase Neg (Negative) 09/13/17 18:50 Vancomycin Trough 5.0 ug/mL (5.0-20.0) 09/15/17 20:04
[2017-09-16 20:38] VITALS: BP 141/70
[2017-09-16] MEDS ORDERED: LOVENOX SUB-Q SCH ×2 (22:00)
== END 2017-09-16 21:45 | DRG 871 ==
LOC: ED 16:56 → 3A 09-12 00:47 → 4A 09-15 19:31
PROVIDERS: ADMIT Internal Medicine; ATTEND Internal Medicine
PROC: 02HV33Z Insertion of Infusion Device into Superior Vena Cava, Percutaneous Approach (ICD-10-PCS; principal; 2017-09-15)
DX: A41.9 Sepsis, unspecified organism (principal); E43 Unspecified severe protein-calorie malnutrition; G93.40 Encephalopathy, unspecified; J69.0 Pneumonitis due to inhalation of food and vomit; N39.0 Urinary tract infection, site not specified; Z68.1 Body mass index [BMI] 19.9 or less, adult; J44.0 Chronic obstructive pulmonary disease with (acute) lower respiratory infection; R09.02 Hypoxemia; Z66 Do not resuscitate; Z79.899 Other long term (current) drug therapy; I11.0 Hypertensive heart disease with heart failure; I50.9 Heart failure, unspecified; K21.9 Gastro-esophageal reflux disease without esophagitis; Z86.73 Personal history of transient ischemic attack (TIA), and cerebral infarction without residual deficits; F32.9 Major depressive disorder, single episode, unspecified; Z90.49 Acquired absence of other specified parts of digestive tract; Z90.710 Acquired absence of both cervix and uterus; R73.9 Hyperglycemia, unspecified; I48.91 Unspecified atrial fibrillation
CPT/HCPCS: 36415; 70450; 71010; 80048; 80053; 80061; 80202; 81003; 82140; 82550; 82553; 83036; 83735; 83880; 84100; 84484; 85007; 85025; 85379; 86140; 87086; 87400; 93005; 93010; 94760; 96365; 96366; 96375; 99285; G8996-GN; G8997-GN; J0360; J1170; J1630; J1940; J2543; J3370; J3475; J3480; J7050